=== PATIENT | female | born 1950 | race Two or more races ===

== ENCOUNTER 2025-02-06 09:18 | Inpatient (IN) | payer MEDICARE, MEDICAID, SELFPAY ==
[2025-02-06] VITALS (93 sets, daily range): BP systolic 63–179; BP diastolic 34–127; PULSE 42–114; RESP 0–98; TEMP 35.9–38.7; O2SAT 72–99; BMI 19.5
--- NOTE | 2025-02-06 09:28 | PD.EDAMS ---
Altered Mental Status RME/HPI General Chief Complaint: Altered Mental Status Stated Complaint: ALTERED Time Seen by Provider: 02/06/25 09:29 Arrival date/time: 02/06/25 09:18 Limitations: altered mental status RME / HPI RME / HPI narrative: DR. CASH MAIN ED EVALUATION: 74-year-old female with past medical history includes diabetes, hypertension, and dementia was brought in by EMS for altered mental status. She normally has a GCS of 15 despite dementia but today is at a GCS of 14. She is opening her eyes but not answering questions. She was noted to have a fever of 101. EMS reports no cough. On arrival she is hypotensive at 82 over 68 and oxygen saturation is 96 percent on room air. No other complaints available. Related Data Home Medications ?Medication ?Instructions ?Recorded ?Confirmed atorvastatin 80 mg tablet 80 mg PO QDAY 12/24/22 12/24/22 cholecalciferol (vitamin D3) 125 125 mcg PO QDAY 12/24/22 12/24/22 mcg (5,000 unit) capsule estradiol 0.01% (0.1 mg/gram) 1 appful vaginal QDAY 12/24/22 12/24/22 vaginal cream (Estrace) lisinopril 20 mg tablet 20 mg PO QDAY 12/24/22 12/24/22 metformin 500 mg tablet 500 mg PO QDAY 12/24/22 12/24/22 Allergies Allergy/AdvReac Type Severity Reaction Status Date / Time No Known Allergies Allergy Verified 02/06/25 09:26 Review of Systems Review of Systems ROS Unobtainable: unobtainable due to mental status Past Medical History Social History SMOKING STATUS: Never smoker ED Exam General Limitations: Present altered mental status General appearance: Present in no apparent distress and other (opening eyes, not answering questions, appears ill) Head Head exam: Present atraumatic, normocephalic and normal inspection Eye Eye exam: Present normal appearance, PERRL and EOMI ENT ENT exam: Present normal exam, normal oropharynx and mucous membranes moist Neck Neck exam: Present normal inspection, full ROM and trachea midline Chest Chest inspection: Present normal inspection and symmetric chest wall rise Respiratory Respiratory exam: Present normal lung sounds bilaterally Cardiovascular Cardiovascular exam: Present regular rate, normal rhythm and normal heart sounds Abdominal Exam Abdominal exam: Present soft and normal bowel sounds Extremities Exam Extremities exam: Present normal inspection Back Exam Back exam: Present normal inspection Neurological Exam Neurological exam: Present other (altered not answering questions) Skin Skin exam: Present warm and other (presacral wound noted with dressing) Course Quality Measures Current suspected stage: sepsis Possible source: unknown Blood cultures ordered: yes Antibiotic ordered: Yes Pertinent labs: 02/06/25 02/06/25 09:40 13:04 Lactic Acid 2.1 H mMol/L 1.1 mMol/L (0.4-2.0) (0.4-2.0) Procalcitonin 0.12 ng/ml (0.0-0.49) 0930: Sepsis alert initiated. Orders made at this time are congruent with ED Adult Sepsis Order List. Re-evaluation is to be completed. 0942: Fluids started. 1012: Sepsis reassessment performed consisting of lab review, vitals, physical exam including auscultation of heart, lungs, and visual evaluation of capillary refills, mucosal membranes and extremities. 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 Care 02/06/25 09:29 Active Continuous Pulse Oximetry STAT Care 02/06/25 09:29 Completed EKG (ED ONLY) *Do not use* NOW Care 02/06/25 09:29 Completed EKG (ED ONLY) *Do not use* NOW Care 02/06/25 16:06 Completed Emergency Titration Protocol Stat Care 02/06/25 15:58 Ordered In and Out Catheter [id number] Care 02/06/25 09:29 Completed Insert IV NOW Care 02/06/25 09:29 Active NPO STAT Care 02/06/25 09:29 Active Strict Intake and Output Routine Care 02/06/25 09:29 Ordered Urinary Catheter QS Care 02/06/25 09:[address] chest abdomen pelvis w con SEPSIS PROTOCOL Stat Exams 02/06/25 09:[address] head/brain wo con Stat Exams 02/06/25 09:33 Completed EKG (ED Only) Stat Exams 02/06/25 09:29 Draft EKG (ED Only) Stat Exams 02/06/25 16:06 Draft XR chest 1V portable Stat Exams 02/06/25 09:29 Completed B-Type Natriuretic Peptide Stat Lab 02/06/25 09:40 Completed Blood Culture (Lab) Stat Lab 02/06/25 09:40 Received Comprehensive Metabolic Panel Stat Lab 02/06/25 09:40 Completed DIC Panel Stat Lab 02/06/25 09:40 Completed LDH (Lactate Dehydrogenase) Stat Lab 02/06/25 09:40 Completed Lactate (Lactic Acid) Stat Lab 02/06/25 09:40 Completed Lactic Acid, 3 HR Stat Lab 02/06/25 13:04 Completed Lipase Stat Lab 02/06/25 09:40 Completed Magnesium Q4H Lab 02/06/25 13:28 Completed Magnesium Q4H Lab 02/06/25 21:45 Stop Req Magnesium Stat Lab 02/06/25 09:40 Completed Phosphorous Q4H Lab 02/06/25 13:28 Completed Phosphorous Q4H Lab 02/06/25 21:45 Stop Req Phosphorous Stat Lab 02/06/25 09:40 Completed Procalcitonin Stat Lab 02/06/25 09:40 Completed Prothrombin Time with INR Q6H Lab 02/06/25 21:45 Stop Req Troponin I Stat Lab 02/06/25 09:40 Completed Urinalysis, C/S if Indicated Stat Lab 02/06/25 09:40 Completed Wound Culture and Gram Stain Stat Lab 02/06/25 10:00 Received Acetaminophen Supp [Tylenol Supp] Med 02/06/25 09:29 Active 650 mg SD Q8HR PRN Norepinephrine/D5W 8mg/250ml [Levophed in D5W 8mg/250ml Med 02/06/25 15:46 Discontinued ] 8 mg in 250 ml IV .STK-MED Norepinephrine/D5W 8mg/250ml [Levophed in D5W 8mg/250ml Med 02/06/25 15:45 Active ] 8 mg in 250 ml IV 0.05 mcg/kg/min Norepinephrine/NS 16mg/250ml [Levophed in NS 16mg/250ml Med 02/06/25 15:38 Discontinued ] 16 mg in 250 ml IV .STK-MED Norepinephrine/NS 16mg/250ml [Levophed in NS 16mg/250ml Med 02/06/25 15:37 Discontinued ] 16 mg in 250 ml IV 0.05 mcg/kg/min Norepinephrine/NS 16mg/250ml [Levophed in NS 16mg/250ml Med 02/06/25 15:41 Discontinued ] 16 mg in 250 ml IV 0.05 mcg/kg/min Ondansetron Inj [Zofran Inj] Med 02/06/25 09:29 Active 4 mg IVP Q6HR PRN Piper/Tazo 3.375 gm Premix [Zosyn] Med 02/06/25 09:29 Discontinued 3.375 gm in 50 ml IV X1 Sodium Chloride 0.9% 1000 ml [Ns] 1,000 ml Med 02/06/25 16:27 Discontinued IV 999 mls/hr Sodium Chloride 0.9% 1000 ml [Ns] 1,572 ml Med 02/06/25 09:29 Discontinued IV 1,572 mls/hr Sodium Chloride 0.9% 500 ml [Ns] 500 ml Med 02/06/25 15:25 Discontinued IV 999 mls/hr Vancomycin Inj 1,000 mg Med 02/06/25 09:29 Discontinued Sodium Chloride 0.9% 250 ml [Ns] 250 ml IV X1 Vancomycin/Ns 1 gm Ivpb 200 ml Med 02/06/25 09:45 Discontinued IV X1 Oxygen Delivery NOW RT 02/06/25 09:29 Active Vital Signs Vital signs: Vital Signs Temperature 101.6 F H 02/06/25 09:18 Pulse Rate 111 H 02/06/25 09:18 Respiratory Rate 19 02/06/25 09:18 Blood Pressure 84/62 L 02/06/25 09:18 Pulse Oximetry (%) 97 02/06/25 09:18 Oxygen Delivery Method Room Air 02/06/25 09:18 PROCEDURES: Procedure Comment Arterial Line Placement ? Left Radial Indication: Need for continuous blood pressure monitoring and frequent arterial blood sampling. Technique: Left radial artery palpated and prepped in sterile fashion. Local anesthesia with lidocaine. Using sterile technique, a catheter was inserted into the left radial artery with good arterial blood return. Catheter advanced easily, connected to transducer with appropriate waveform. Secured with sutures and sterile dressing. Post procedure: Distal perfusion intact, no complications, patient tolerated well. Central Line Placement ? Right Internal Jugular (IJ) Indication: Need for central venous access. Technique: Right neck prepped and draped in sterile fashion. Ultrasound used to identify right internal jugular vein. Local anesthesia with lidocaine. Needle inserted under ultrasound guidance with venous blood return obtained. Guidewire advanced without resistance. Dilator used, then triple lumen catheter inserted into IJ. All lumens flushed and aspirated easily. Line sutured in place and sterile dressing applied. Post procedure: Good blood return from all ports, no immediate complications. Patient tolerated well. Altered Mental Status MDM Narrative MDM Narrative:: I, Alycia Richter am scribing for and in the presence of Dr. Cash. 74-year-old female with altered mental status, fever, hypotension, and history of dementia. Exam notable for presacral wound. Differential diagnoses include sepsis, dehydration, and septic shock. Impression is sepsis most likely from UTI source. Assessment for sepsis, mostly likely UTI, dehydration, and maybe sepsis shock. Plan for septic work up, to culture the wound, give vancomycin and Zosyn, provide IV fluids, and admit. Patient requires continued critical monitoring. EKG#1: EKG at 0939 hours. Interpreted by me: sinus rhythm, rate 97, no axis deviation, no ischemia, normal intervals EKG#2: EKG at 1539 hours. Interpreted by me: sinus bradycardia, rate 59, no axis deviation, no ischemia, normal intervals 1740: Arterial line and central line placed. Please see procedures for details. Patient data External records reviewed:: [facility] previous records and EMS form Clinical information provided by:: patient and EMS Social determinants that could affect healthcare access:: none Patient has the following chronic illnesses:: diabetes, hypertension, and dementia How is presenting disease/condition affected by chronic disease/condition?: exacerbated by Evaluation data The following diagnostics were reviewed and interpreted by me:: lab results, radiology exam(s) and EKG tracing(s) (EKG#1: EKG at 0939 hours. Interpreted by me: sinus rhythm, rate 97, no axis deviation, no ischemia, normal intervals ) Lab and/or radiology exams considered but not ordered:: none Interpretation Summary: See MDM narrative above. RADIOLOGY Procedure(s): CT head/brain wo con Accession Number(s): [id number] cc: Val Garcia MD; Miryam Crisostomo; Juan Mckeon MD~ Examination: CT brain head without contrast. 2-D sagittal coronal reconstructions Date and time of exam: February 06, 2025, 1221 hours INDICATIONS: Altered mental status today CTDI: vol (mGy): 46.4 DLP: (mGycm): 874 Technique: Multiple CT axial sections of the brain have been obtained, 5 mm slice thickness. Contrast has not been administered. 2-D sagittal, coronal reconstructions have been obtained Low dose protocols were performed. One or more of the following dose reduction techniques were used; automated exposure control, adjustment of the mA and/or KV according to patient size, use of iterative reconstruction technique. Findings: No significant ventricular enlargement. Intra-axial or extra-axial hemorrhage density is not seen. No mass effect or midline shift Basal cisterns are not remarkable. Fourth ventricle is midline. Cranial vault intact. Impression: Negative for acute hemorrhage, mass effect or midline shift Dictated By: Juan Mckeon MD Procedure(s): CT chest abd pel w SEPSIS PRO Accession Number(s): [id number] cc: Val Garcia MD; Miryam Crisostomo; Juan Mckeon MD~ Examination: CT chest with intravenous contrast CT abdomen with intravenous contrast CT pelvis with intravenous contrast 2-D coronal and sagittal reconstructions Time of exam: December 07, 2024, 1210 hours INDICATIONS: Sepsis alert, unknown source of infection CTDI: vol (mGy) : 7.65 DLP: (mGycm): 499 Technique: Multiple axial images of the chest, abdomen and pelvis with intravenous contrast, 3.0 mm slice thickness. Images obtained post intravenous injection Isovue 370 60 cc. 2-D sagittal and coronal reconstructions. Low dose protocols were performed. One or more of the following dose reduction techniques were used; automated exposure control, adjustment of the mA and/or KV according to patient size, use of iterative reconstruction technique. Findings: No thoracic aortic aneurysm dilatation No pulmonary artery emboli. No paratracheal tracheobronchial or bronchopulmonary adenopathy. No pneumonia, pulmonary edema or pleural disease No visualized liver or splenic lesion Gallbladder is not visualized No common bile duct stone No pancreatic or adrenal mass. Moderate left renal scarring, no hydronephrosis renal or ureteral calculi Aortic calcification no aneurysmal dilatation No pericecal inflammatory change No bowel obstruction or diverticulitis No pelvic mass Abundant stool in the rectum Minimal thickening of the urinary bladder wall Moderate osteopenia IMPRESSION: No pneumonia pulmonary edema or pleural disease. No biliary tract dilatation, no common hepatic common bile duct stones Moderate left renal scarring, no hydronephrosis renal or ureteral calculi No abdominal or pelvic abscess Abundant stool in the rectum Mild cystitis pattern Dictated By: Juan Mckeon MD Procedure(s): XR chest 1V portable Accession Number(s): [id number] cc: Val Garcia MD; Miryam Crisostomo; Juan Mckeon MD~ EXAMINATION: AP chest single view TECHNIQUE: AP portable upright chest single view Date and time: February 06, 2025, 1004 hours INDICATIONS: Sepsis alert today FINDINGS: Normal heart size Prominent thoracic scoliosis Bilateral rib deformities No pneumonia or pulmonary edema IMPRESSION: No pneumonia or pulmonary edema Dictated By: Juan Mckeon MD Medications / Prescriptions Medications or Prescriptions considered but not ordered:: none Medication administrations:: Medication Administration History Acetaminophen (Acetaminophen Supp 650 Mg Supp) 650 mg SD Q8HR PRN PRN Reason: Fever > 100.4 Stop: 03/08/25 09:28 Last Admin: 02/06/25 09:50 Dose: 650 mg Documented By: VL Heparin Sodium (Porcine) (Heparin Sod Inj 5000 Unit/Ml Vial) 5,000 unit SC Q8HR PANTERA Stop: 02/20/25 16:44 Hydrocortisone Sodium Succinate (Hydrocortisone Sod Succ Inj 100 Mg 2 Ml Vial) 50 mg IV Q6HR PANTERA Stop: 03/09/25 00:00 Norepinephrine/Dextrose (Levophed In D5w 8mg/250ml) 8 mg in 250 mls @ 4.678 mls/hr IV .Q24H PRN; Protocol PRN Reason: PER PROTOCOL Stop: 03/08/25 15:44 Last Titration: 02/06/25 17:12 Dose: 0.5 mcg/kg/min, 46.777 mls/hr Documented By: Titration: 02/06/25 16:51 Dose: 0.4 mcg/kg/min, 37.421 mls/hr Documented By: Titration: 02/06/25 16:30 Dose: 0.3 mcg/kg/min, 28.066 mls/hr Documented By: Titration: 02/06/25 16:25 Dose: 0.3 mcg/kg/min, 28.066 mls/hr Documented By: Titration: 02/06/25 16:20 Dose: 0.19 mcg/kg/min, 17.775 mls/hr Documented By: Titration: 02/06/25 16:15 Dose: 0.17 mcg/kg/min, 15.904 mls/hr Documented By: Titration: 02/06/25 16:10 Dose: 0.15 mcg/kg/min, 14.033 mls/hr Documented By: Titration: 02/06/25 16:05 Dose: 0.11 mcg/kg/min, 10.291 mls/hr Documented By: Titration: 02/06/25 16:00 Dose: 0.09 mcg/kg/min, 8.42 mls/hr Documented By: Titration: 02/06/25 15:55 Dose: 3 mcg/kg/min, 280.659 mls/hr Documented By: Titration: 02/06/25 15:55 Dose: 0.07 mcg/kg/min, 6.549 mls/hr Documented By: Admin: 02/06/25 15:50 Dose: 0.05 mcg/kg/min, 4.678 mls/hr Documented By: LINDA Piperacillin/Tazobactam/Dextrose (Zosyn) 3.375 gm in 50 mls @ 12.5 mls/hr IV Q8HR PANTERA; Protocol Stop: 02/13/25 21:59 Vasopressin/Sodium Chloride (Vasostrict/Ns Ivpb) 20 unit in 100 mls @ 9 mls/hr IV .Q11H7M PRN; Protocol PRN Reason: PER PROTOCOL Stop: 03/08/25 16:44 Last Admin: 02/06/25 17:50 Dose: 0.03 unit/min, 9 mls/hr Documented By: LINDA Ondansetron HCl (Ondansetron Inj 2 Mg/Ml Inj 2 Ml) 4 mg IVP Q6HR PRN PRN Reason: NAUSEA OR VOMITING Stop: 03/08/25 09:28 Last Admin: 02/06/25 09:50 Dose: 4 mg Documented By: LINDA Pharmacy Consult (Vancomycin Pharmacy To Dose 1 Each Each) 1 each IV QDAY PRN PRN Reason: CONSULT Stop: 03/09/25 08:59 Discontinued Medications Hydrocortisone Sodium Succinate (Hydrocortisone Sod Succ Inj 100 Mg 2 Ml Vial) 100 mg IV X1 ONE Stop: 02/06/25 16:42 Last Admin: 02/06/25 16:59 Dose: 100 mg Documented By: LINDA Sodium Chloride (Ns) 1,572 mls @ 1,572 mls/hr 30 ml/kg infuse over 60 min (1572 ml) IV .Q1H ONE Stop: 02/06/25 10:28 Last Infusion: 02/06/25 10:42 Dose: Infused Documented By: Admin: 02/06/25 09:42 Dose: 1,572 mls/hr Documented By: LINDA Piperacillin/Tazobactam/Dextrose (Zosyn) 3.375 gm in 50 mls @ 100 mls/hr IV X1 ONE Stop: 02/06/25 09:58 Last Infusion: 02/06/25 10:21 Dose: Infused Documented By: Admin: 02/06/25 09:51 Dose: 100 mls/hr Documented By: LINDA Vancomycin HCl 1,000 mg/ (Sodium Chloride) 250 mls @ 250 mls/hr IV X1 ONE Stop: 02/06/25 10:28 Last Admin: 02/06/25 10:02 Dose: Not Given Documented By: VL Non-Admin Reason: Cancelled by Provider Vancomycin/Sodium Chloride (Vancomycin/Ns 1 Gm Ivpb) 200 mls @ 120 mls/hr IV X1 ONE Stop: 02/06/25 11:24 Last Infusion: 02/06/25 12:09 Dose: Infused Documented By: Admin: 02/06/25 10:28 Dose: 120 mls/hr Documented By: BY Sodium Chloride (Ns) 500 mls @ 999 mls/hr IV .Q31M ONE Stop: 02/06/25 15:55 Last Infusion: 02/06/25 16:17 Dose: Infused Documented By: Admin: 02/06/25 15:46 Dose: 999 mls/hr Documented By: VL Norepinephrine Bitartrate (Levophed In Ns 16mg/250ml) 16 mg in 250 mls @ 2.339 mls/hr IV .Q24H PRN; Protocol PRN Reason: PER protocol Stop: 03/08/25 15:36 Norepinephrine Bitartrate (Levophed In Ns 16mg/250ml) Confirm Administered Dose 16 mg in 250 mls @ ud IV .STK-MED ONE Stop: 02/06/25 15:39 Last Admin: 02/06/25 15:51 Dose: Not Given Documented By: VL Non-Admin Reason: Duplicate Medication on eMAR Norepinephrine Bitartrate (Levophed In Ns 16mg/250ml) 16 mg in 250 mls @ 2.339 mls/hr IV .Q24H PRN; Protocol PRN Reason: PER protocol Stop: 03/08/25 15:40 Norepinephrine/Dextrose (Levophed In D5w 8mg/250ml) Confirm Administered Dose 8 mg in 250 mls @ ud IV .STK-MED ONE Stop: 02/06/25 15:47 Last Admin: 02/06/25 15:51 Dose: Not Given Documented By: VL Non-Admin Reason: Duplicate Medication on eMAR Sodium Chloride (Ns) 1,000 mls @ 999 mls/hr IV .Q1H1M ONE Stop: 02/06/25 17:27 Last Infusion: 02/06/25 17:32 Dose: Infused Documented By: Admin: 02/06/25 16:31 Dose: 999 mls/hr Documented By: VL see above Consultations Consultation(s) initiated? (list below): Yes Consultation #1 (Physician, Specialty, Details): Discussed test HPI, PMHx, lab, radiology results and/or management with resident working with the hospitalist. Will admit for further evaluation and management. Accepts patient for admission. Time: 16:41 Diagnosis Differential diagnosis altered mental status: other (sepsis, dehydration, and septic shock) Most likely diagnosis given after review of the tests above:: Sepsis Sepsis shock Cellulitis Presacral wound/ infection Dementia Hyponatremia Dehydration Admission Indicated Admission indicated?: indicated Admission Request Was there a request for admission?: Yes Admission Attestation Admission request attestation: Discussed case with [] from Hospitalist service regarding admission. Discussed patients ED course, exam findings, labs, and radiology results. The Hospitalist [agrees,declines] to accept the patient for admission. Disposition Plan Disposition Plan: Admit Critical Care Time Critical Care Time Critical Care Time: Yes Total Critical Care Time (min.): 90 Attestation: The high probability of sudden, clinically significant deterioration in the patient?s condition required the highest level of my preparedness to intervene urgently. The services I provided to this patient were to treat and/or prevent clinically significant deterioration. Services included the following: chart data review, reviewing nursing notes and/or old charts, documentation time, institutional nutrition consultant collaboration regarding findings and treatment options, medication orders and management, direct patient care, vital sign assessments and ordering, interpreting and reviewing diagnostic studies and lab tests. Aggregate critical care time includes only time during which I was engaged in work directly related to the patient?s care, as described above, whether at bedside or elsewhere in the Emergency Department. It did not include time spent performing other reported procedures or the services of residents, students, nurses or physician assistants. Discharge Plan Plan Patient Disposition: Admit Acute Care w/in Hospital Problem List Clinical Impression: Sepsis, Sepsis without septic shock, Cellulitis, Dementia, Dehydration Impression comment: presacral wound/ infection
--- NOTE | 2025-02-06 09:29 | EKG_ITS ---
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
--- NOTE | 2025-02-06 09:33 | XR_ITS ---
Examination: CT brain head without contrast. 2-D sagittal coronal reconstructions Date and time of exam: February 06, 2025, 1221 hours INDICATIONS: Altered mental status today CTDI: vol (mGy): 46.4 DLP: (mGycm): 874 Technique: Multiple CT axial sections of the brain have been obtained, 5 mm slice thickness. Contrast has not been administered. 2-D sagittal, coronal reconstructions have been obtained Low dose protocols were performed. One or more of the following dose reduction techniques were used; automated exposure control, adjustment of the mA and/or KV according to patient size, use of iterative reconstruction technique. Findings: No significant ventricular enlargement. Intra-axial or extra-axial hemorrhage density is not seen. No mass effect or midline shift Basal cisterns are not remarkable. Fourth ventricle is midline. Cranial vault intact. Impression: Negative for acute hemorrhage, mass effect or midline shift
[2025-02-06] MEDS: SODIUM CHLORIDE 0.9% 1000 ML 1,572 ML 1572 ML IV (09:42)
[2025-02-06] MEDS: ACETAMINOPHEN SUPP 650 MG SUPP PR (09:50)
[2025-02-06] MEDS: ONDANSETRON INJ 2 MG/ML INJ 2 ML 4 MG IVP (09:50)
[2025-02-06] MEDS: PIPER/TAZO 3.375 GM PREMIX 3.375 GM/50 ML BAG IV ×2 (09:51→21:25)
[2025-02-06 09:56] LABS: Lactate (Lactic Acid) 2.1 mMol/L (0.4-2.0)
[2025-02-06 10:01] LABS: Collection Type, Urine Clean Catch
[2025-02-06 10:19] LABS: Bilirubin,Urine Negative (Negative); Blood,Urine 1+ (Negative); Color,Urine Yellow (Lt Yel-Yel); Culture Indicated,Urine Not Indicated; Glucose, Urine Negative (Negative); Ketones,Urine Trace (Negative); Leukocyte Esterase,Urine Negative (Negative); Nitrite,Urine Negative (Negative); PH,Urine 5.5 (5.0-7.0); Protein,Urine 1+ (Neg - Trace); RBC,Urine 1 /hpf (0-3); Specific Gravity,Urine 1.031 (1.001-1.035); Squamous Epithelial Cell,Urine 1 /hpf (0-5); Urobilinogen,Urine 2.0 mg/dL (0.0-1.0); WBC,Urine < 1 /hpf (0-5)
[2025-02-06 10:22] LABS: Clarity,Urine Clear (Clear/Hazy)
[2025-02-06] MEDS: VANCOMYCIN/NS 1 GM IVPB 200 ML IV (10:28)
[2025-02-06 10:32] LABS: Alanine Aminotransferase 17 U/L (10-49); Albumin, Serum 4.0 gm/dL (3.4-4.8); Albumin/Globulin Ratio 1.3 (1.2-2.2); Alkaline Phosphatase 78 U/L (46-116); Anion Gap 11 (7-16); Aspartate Amino Transferase 15 U/L (0-34); BUN/Creatinine Ratio 23 Ratio (12-20); Bilirubin,Total 0.5 mg/dL (0.3-1.2); Blood Urea Nitrogen 23 mg/dL (9-23); Calcium 9.7 mg/dL (8.3-10.6); Calcium (Corrected) 9.7 mg/dL (8.5-10.1); Carbon Dioxide 24.6 mMol/L (20.0-31.0); Chloride 117 mMol/L (98-107); Creatinine (Component) 1.0 mg/dL (0.6-1.3); Estimated Creatinine Clearance 39.5 mL/min (>60); Globulin 3.0 gm/dL (2.3-3.5); Glucose 131 mg/dL (74-106); LDH (Lactate Dehydrogenase) 191 U/L (120-246); Lipase 34 U/L (12-53); Magnesium 1.9 mg/dL (1.6-2.6); Osmolality,Calculated 309 (275-295); Phosphorous 2.6 mg/dL (2.4-5.1); Potassium 3.5 mMol/L (3.4-5.1); Procalcitonin 0.12 ng/ml (0.0-0.49); Sodium 153 mMol/L (136-145); Total Protein 7.0 gm/dL (5.7-8.2); Troponin I 0.022 ng/mL (0.0-0.045); eGFR 59 See Note
[2025-02-06 10:33] LABS: Basophils # (Auto) 0.1 Thou/mm3 (0.0-0.2); Basophils % (Auto) 1 % (0-2.5); Eosinophils # (Auto) 0.0 Thou/mm3 (0.0-0.5); Eosinophils % (Auto) 0 % (0-10); Hematocrit 42.5 % (36.0-46.0); Hemoglobin 12.9 g/dL (12.0-16.0); Immature Granulocytes Auto 0.06 Thou/mm3 (0.00-0.00); Lymphocytes # (Auto) 2.3 Thou/mm3 (1.0-4.8); Lymphocytes % (Auto) 18 % (10-50); Mean Corpuscular HGB Conc 30.4 g/dl (31.0-37.0); Mean Corpuscular Hemoglobin 25.6 pg (25.0-35.0); Mean Corpuscular Volume 84 fL (80-100); Monocytes # (Auto) 0.8 Thou/mm3 (0.0-0.8); Monocytes % (Auto) 6 % (0-12); Neutrophils # (Auto) 9.7 Thou/mm3 (1.8-7.7); Neutrophils % (Auto) 75 % (37-80); Nucleated Red Blood Cell # 0.00 Thou/mm3 (0.00-0.00); Nucleated Red Blood Cell % 0 /100 WBC (0); Platelet Count 393 Thou/mm3 (140-440); RDW Standard Deviation 47.2 fL (36.4-46.3); Red Blood Count 5.04 Miln/mm3 (4.00-5.20); White Blood Count 12.9 Thou/mm3 (3.6-11.0)
[2025-02-06 10:34] LABS: INR 1.1 (0.9-1.3); Partial Thromboplastin Time 24.4 Seconds (22.0-36.0); Prothrombin Time 11.5 Seconds (9.0-12.2)
[2025-02-06 10:35] LABS: D-Dimer 2430 ng/mL (<600)
[2025-02-06 10:36] LABS: B-Type Natriuretic Peptide 77 pg/mL (0-100)
[2025-02-06 11:00] LABS: Fibrinogen 560 mg/dL (175-375)
[2025-02-06 12:50] LABS: Reflex Lactate? Y
[2025-02-06 13:08] LABS: Lactic Acid, 3 HR 1.1 mMol/L (0.4-2.0)
[2025-02-06 13:46] LABS: Magnesium 1.8 mg/dL (1.6-2.6); Phosphorous 2.7 mg/dL (2.4-5.1)
[2025-02-06] MEDS: SODIUM CHLORIDE 0.9% 500 ML 500 ML 999 ML IV (15:46)
[2025-02-06] MEDS: Norepinephrine/D5W 8mg/250ml 8 MG/250 ML BAG 4.678 MG IV (15:50)
--- NOTE | 2025-02-06 16:06 | EKG_ITS ---
[facility] Test Date: 2025-02-06 Pat Name: CHON QUINONEZ Department: Room: - Gender: Female Manager Of Transportation: : 1950 Requested By: Val Garcia Order Number: [id number] Reading MD: Val Garcia Measurements Intervals [place] Rate: 59 P: 44 MI: 164 QRS: 42 QRSD: 90 T: 49 QT: 421 QTc: 419 Interpretive Statements SINUS BRADYCARDIA LOW QRS VOLTAGE IN PRECORDIAL LEADS [QRS DEFLECTION < 1.0 mV IN CHEST LEADS] NONSPECIFIC T-WAVE ABNORMALITY Compared to ECG 02/06/2025 09:39:52 Low QRS voltage now present Sinus rhythm no longer present Possible ischemia no longer present T-wave abnormality still present /store/S0/[id number].pdf
[2025-02-06] MEDS: SODIUM CHLORIDE 0.9% 1000 ML 1,000 ML 999 ML IV (16:31)
--- NOTE | 2025-02-06 16:37 | PC.NURSE ---
PATIENT BLOOD PRESSURE WAS 80S/50S. DR. MEJIAS MADE AWARE OF LOW BP AND LOW HEART RATE. PATIENT WAS GIVEN 500ML OF NORMAL SALINE. PATIENT WAS STARTED ON LEVOPHED DRIP. PER MD PATIENT OKAY TO HAVE EMERGENCY TITRATION OF LEVOPHED TO 3MCG/KG/MIN. PATIENT'S HEART RATE WENT UP TO 130S. PATIENT BLOOD PRESSURE WAS 170S/110S AT THAT TIME WELL. PATIENT TITRATED BACK DOWN ON LEVOPHED DRIP.. PATIENT HEART RATE STILL LOW AT 48-50S. PATIENT LETHARGIC. CONSENT OBTAINED FROM DAUGHTER FOR ART LINE PLACEMENT, AND CENTRAL LINE PLACEMENT. DAUGHTER MADE AWARE OF PLAN OF CARE FOR PATIENT. PATIENT WILL BE ADMITTED TO ICU. PATIENT BLOOD PRESSURE CURRENTLY 89/41. RESIDENT ALEXX AND TEAM IN TO ASSESS PATIENT AND PLACE CENTRAL LINE. FAMILY IN AGREEMENT WITH PLAN
[2025-02-06] MEDS: HYDROCORTISONE SOD SUCC INJ 100 MG 2 ML VIAL IV (16:59)
--- NOTE | 2025-02-06 17:10 | XR_ITS ---
EXAMINATION: AP chest single view TECHNIQUE: Portable supine AP chest single view Date and time: February 06, 2025, 1737 hours, comparison February 06, 2025 1004 hours INDICATIONS: Post central line placement. FINDINGS: Right internal jugular central line tip right atrium No pneumothorax Normal heart size No pneumonia or pulmonary edema IMPRESSION: Right internal jugular central line tip right atrium, no pneumothorax
[2025-02-06] MEDS: VASOPRESSIN IN NS IVPB 20 UNIT/100 ML BAG 9 UNIT IV (17:50)
--- NOTE | 2025-02-06 17:58 | PD.RESHP ---
Documentation for date of: 02/06/25 HPI History of Present Illness Chief complaint: decrease activity and low PO intake History of present illness: 74-year-old female with past medical history of hypertension, DM2, hyperlipidemia, and Alzheimer's (nonverbal at baseline) came into the ED brought in by her daughter due to lower activity than normal and decreased p.o. intake for the past 2-3 days. Patient speaks Pashto and daughter also speaks Pashto therefore the access spec GENA #ID [id number] was used to take most of the history. Given the patient is nonverbal at baseline most of the history was syncopal and the daughter. Stated that patient at baseline is mostly bedbound and in order to get her of the need 2-3 people to actually help her stand up and move around. Otherwise she mentioned that patient has not had any nausea, vomiting, diarrhea, or cough as of recently and that she did have the ulcer in her sacral area for around 2 or 3 days and has rapidly progressed and gotten worse. Otherwise no other complaints at this time. ED course: Initially came in hypotensive, tachycardic, and febrile. Initial labs were relevant for leukocytosis 12.9, hyponatremia 153, hypochloremia 117, and lactic acidosis at 2.1 which downtrended to 1.1 and patient's UA was unremarkable. Initial imaging clued chest x-ray which did not show any pneumonia or pulmonary edema, chest/abdomen/pelvis CT which only showed abundant stool in the rectum and mild cystitis, and head CT which was unremarkable. Patient did get initial EKG which showed sinus rhythm with some diffuse ST depressions likely secondary to demand ischemia in the setting of shock. Repeat EKG also showed sinus bradycardia with heart rate of 59 with QTc of 419. In the ER patient was started on Levophed and was requiring high dose vasopressors and was already on Levophed 0.5 during assessment. She also was more bradycardic and had a short episode of tachycardia secondary to being maxed out on Levophed in the ER. Otherwise has been bradycardic in the low 50s high 40s. Patient in the ER got an A-line and central line placed. PMH: Hypertension, DM2, hyperlipidemia, Alzheimer's Social Hx: Daughter states no smoking, drugs, alcohol Allergies: NKDA Patient admitted to the ICU due to shock. Review of Systems Review of Systems ROS Unobtainable: unobtainable due to medical condition Past Medical History Past Medical History Comments PMH COMMENT: PMH: Hypertension, DM2, hyperlipidemia, Alzheimer's Social Hx: Daughter states no smoking, drugs, alcohol Allergies: NKDA Exam Vital Signs Temp Pulse Resp BP Pulse Ox O2 Del Method 96.6 F L 58 L 18 117/52 L 90 L Room Air 02/06/25 17:20 02/06/25 17:23 02/06/25 17:23 02/06/25 17:20 02/06/25 17:20 02/06/25 16:29 Narrative Exam Gen: Patient nonverbal at baseline, GCS of 10, moving all extremities, pale appearing and frail elderly female HEENT: NCAT, EOMI, Pupils reactive ERICK, but pinpoint, not icteric. External ears normal. No rhinorrhea. Dry mucous membranes. Neck: Supple, full range of motion, no observable masses, No meningeal sign. Lungs: No Respiratory distress, clear bilateral. CV: Bradycardic, no murmurs. Abdomen: Soft, nondistended, No rebound tenderness. MSK: No joint swelling, no redness, peripheral pulses presents, no peripheral edema edema. Skin: Coccygeal region ulcer stage II-III with some purulent discharge Neuro: Unable to assess given patient's medical condition and being nonverbal and not following commands at this time. Able to move all extremities and withdrawing to pain, GCS 10, pupils were reactive bilaterally. Results: Labs 02/06/25 09:40 02/06/25 17:49 Labs: Short CBC 02/06/25 02/06/25 02/06/25 Range/Units 09:40 09:40 09:40 WBC Cancelled 12.9 H Hgb Cancelled 12.9 Hct Cancelled Plt Count 02/06/25 02/06/25 Range/Units 09:40 09:40 WBC Hgb Hct 42.5 Plt Count Cancelled 393 BMP 02/06/25 09:40 Sodium 153 H Potassium 3.5 Chloride 117 H Carbon Dioxide 24.6 BUN 23 Creatinine 1.0 Glucose 131 H Calcium 9.7 Cardiac Enzymes 02/06/25 Range/Units 09:40 Troponin I 0.022 (0.0-0.045) ng/mL Liver Function 02/06/25 Range/Units 09:40 Total Bilirubin 0.5 (0.3-1.2) mg/dL AST 15 (0-34) U/L ALT 17 (10-49) U/L Alkaline Phosphatase 78 (46-116) U/L Albumin 4.0 (3.4-4.8) gm/dL Urine 02/06/25 Range/Units 09:40 Urine Color Yellow (Lt Yel-Yel) Urine Clarity Clear (Clear/Hazy) Urine pH 5.5 (5.0-7.0) Ur Specific [place] 1.031 (1.001-1.035) Urine Protein 1+ A (Neg - Trace) Urine Glucose (UA) Negative (Negative) Quality Measures Quality Measures sepsis Current suspected stage: septic shock (LA >4 and/or hypotension) Sepsis reassessment completed at (date): 02/06/25 Sepsis reassessment completed at (time): 18:45 Possible source: unknown Blood cultures ordered: yes Antibiotic ordered: Yes Advance care planning discussed with:: patient Medications Home Medications and Allergies Home Medications ?Medication ?Instructions ?Recorded ?Confirmed ?Type atorvastatin 80 mg tablet 80 mg PO QDAY 12/24/22 12/24/22 History cholecalciferol (vitamin D3) 125 125 mcg PO QDAY 12/24/22 12/24/22 History mcg (5,000 unit) capsule estradiol 0.01% (0.1 mg/gram) 1 appful vaginal QDAY 12/24/22 12/24/22 History vaginal cream (Estrace) lisinopril 20 mg tablet 20 mg PO QDAY 12/24/22 12/24/22 History metformin 500 mg tablet 500 mg PO QDAY 12/24/22 12/24/22 History Allergies Allergy/AdvReac Type Severity Reaction Status Date / Time No Known Allergies Allergy Verified 02/06/25 09:26 Visit Medications Acetaminophen (Acetaminophen Supp 650 Mg Supp) 650 mg VA Q8HR PRN PRN Reason: Fever > 100.4 Stop: 03/08/25 09:28 Last Admin: 02/06/25 09:50 Dose: 650 mg Heparin Sodium (Porcine) (Heparin Sod Inj 5000 Unit/Ml Vial) 5,000 unit SC Q8HR PANTERA Stop: 02/20/25 16:44 Hydrocortisone Sodium Succinate (Hydrocortisone Sod Succ Inj 100 Mg 2 Ml Vial) 50 mg IV Q6HR PANTERA Stop: 03/09/25 00:00 Norepinephrine/Dextrose (Levophed In D5w 8mg/250ml) 8 mg in 250 mls @ 4.678 mls/hr IV .Q24H PRN; Protocol PRN Reason: PER PROTOCOL Stop: 03/08/25 15:44 Last Titration: 02/06/25 17:12 Dose: 0.5 mcg/kg/min, 46.777 mls/hr Piperacillin/Tazobactam/Dextrose (Zosyn) 3.375 gm in 50 mls @ 12.5 mls/hr IV Q8HR PANTERA; Protocol Stop: 02/13/25 21:59 Vasopressin/Sodium Chloride (Vasostrict/Ns Ivpb) 20 unit in 100 mls @ 9 mls/hr IV .Q11H7M PRN; Protocol PRN Reason: PER PROTOCOL Stop: 03/08/25 16:44 Last Admin: 02/06/25 17:50 Dose: 0.03 unit/min, 9 mls/hr Ondansetron HCl (Ondansetron Inj 2 Mg/Ml Inj 2 Ml) 4 mg IVP Q6HR PRN PRN Reason: NAUSEA OR VOMITING Stop: 03/08/25 09:28 Last Admin: 02/06/25 09:50 Dose: 4 mg Pharmacy Consult (Vancomycin Pharmacy To Dose 1 Each Each) 1 each IV QDAY PRN PRN Reason: CONSULT Stop: 03/09/25 08:59 Discontinued Medications Hydrocortisone Sodium Succinate (Hydrocortisone Sod Succ Inj 100 Mg 2 Ml Vial) 100 mg IV X1 ONE Stop: 02/06/25 16:42 Last Admin: 02/06/25 16:59 Dose: 100 mg Sodium Chloride (Ns) 1,572 mls @ 1,572 mls/hr 30 ml/kg infuse over 60 min (1572 ml) IV .Q1H ONE Stop: 02/06/25 10:28 Last Infusion: 02/06/25 10:42 Dose: Infused Piperacillin/Tazobactam/Dextrose (Zosyn) 3.375 gm in 50 mls @ 100 mls/hr IV X1 ONE Stop: 02/06/25 09:58 Last Infusion: 02/06/25 10:21 Dose: Infused Vancomycin HCl 1,000 mg/ (Sodium Chloride) 250 mls @ 250 mls/hr IV X1 ONE Stop: 02/06/25 10:28 Last Admin: 02/06/25 10:02 Dose: Not Given Vancomycin/Sodium Chloride (Vancomycin/Ns 1 Gm Ivpb) 200 mls @ 120 mls/hr IV X1 ONE Stop: 02/06/25 11:24 Last Infusion: 02/06/25 12:09 Dose: Infused Sodium Chloride (Ns) 500 mls @ 999 mls/hr IV .Q31M ONE Stop: 02/06/25 15:55 Last Infusion: 02/06/25 16:17 Dose: Infused Norepinephrine Bitartrate (Levophed In Ns 16mg/250ml) 16 mg in 250 mls @ 2.339 mls/hr IV .Q24H PRN; Protocol PRN Reason: PER protocol Stop: 03/08/25 15:36 Norepinephrine Bitartrate (Levophed In Ns 16mg/250ml) 16 mg in 250 mls @ 2.339 mls/hr IV .Q24H PRN; Protocol PRN Reason: PER protocol Stop: 03/08/25 15:40 Sodium Chloride (Ns) 1,000 mls @ 999 mls/hr IV .Q1H1M ONE Stop: 02/06/25 17:27 Last Infusion: 02/06/25 17:32 Dose: Infused Assessment & Plan Plan 74-year-old female with past medical history of hypertension, DM2, hyperlipidemia, and Alzheimer's (nonverbal at baseline) admitted to the ICU on 02/06/2025 due to shock likely distributive in the setting of decubitus ulcer. 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 CVS #Shock Patient shock likely distributive in the setting of coccygeal ulcer with good initial response to IV fluids, but IVC not adequately visualized on limited bedside ultrasound versus cardiogenic in the setting of bradycardia and given that on VBG SVO 2 was low at 67 and on Mina's criteria patient's cardiac output was 2.8 and cardiac index was 1.9. Last likely obstructive as no RV strain seen appreciated on the limited bedside ultrasound S/p 3 L IV fluids Plan: Currently on Levophed and vasopressin Started dobutamine drip at 2.5 mcg/kg/min (goal SVO 2 is 70 and above) Started patient on hydrocortisone 100 mg x 1 and 50 mg every 6 for refractory shock Zosyn and Vanco Every 2 hours VBG's until reaching goal of SVO 2 of 70 then we can do VBG's every 4 hours Echo ordered Follow-up on blood cultures and wound cultures Follow-up on NICOM once patient in the ICU and reassess IVC. #Bradycardia Patient has been having heart rate in the low 50s high 40s EKG that showed sinus bradycardia with a rate of 59 and QTc was 419, but no block appreciated Initial EKG that showed some diffuse ST depressions likely secondary to demand ischemia Plan: Patient currently has external pacer pads, but not being paced at this time On dobutamine 2.5 mcg/kg/min Echo ordered Consider atropine and pacing patient if severe bradycardia #NSTEMI Likely type II due to demand ischemia in setting of shock Troponins were 0.022 and up trended to 0.196 Initial EKG that showed diffuse ST depressions likely due to demand ischemia. Plan: Trend troponins Treat underlying shock Pulm No active disease GI #Constipation Patient is chest/abdomen CT did show abundant stool in the rectum This could also be contributing to patient's decreased activity levels Plan: Consider NG tube and starting patient on lactulose for bowel movements. Renal #Lactic acidosis, resolved Patient came in with a lactic acid of 2.1 and downtrended to 1.1 Likely secondary to shock Plan: Treat underlying shock #Hypokalemia Patient's potassium was 3.1 on repeat labs Plan: Gave 40 mEq IV potassium Will replete as necessary Endo #Hx of DM2 No A1c on records Plan: A1c in the morning ISS every 6 hours Bedside glucose every 6 Hypoglycemia protocol ordered #Hx of hyperlipidemia Order lipid panel for a.m. labs Heme/onc #Leukocytosis Likely infectious in etiology WBC was 12.9 Plan: Treat underlying infection ID #Coccygeal ulcer Patient has a pressure ulcer in the coccygeal region stage II-III. Does have some purulent discharge Plan: Wound care order Referral to wound care Zosyn and Vanco Turn patient every 2 hours Follow-up on wound cultures ICU Health maintenance: Mechanical ventilation: None Sedation: none Diet: NPO DVT prophylaxis: Heparin subcu GI prophylaxis: none Pelletier: Yes Lines: PIV, right IJ, left radial A-line Antibiotics: Zosyn and vancomycin CODE STATUS: Full Case disclosed with Attending Dr. Shayne Cameron PGY2 Disclaimer: Even though this this note was dictated by speech recognition and even though it was carefully revised there may still be minor errors in medical communication specialist due to voice recognition software.
[2025-02-06 18:12] LABS: Base Excess, Venous -7 (-3-3); O2 Saturation, Venous 67 % (96-97); PCO2, Venous 42 mmHg (36-56); PO2, Venous 42 mmHg (15-58); pH, Venous 7.27 (7.33-7.66)
[2025-02-06 18:19] LABS: Alanine Aminotransferase 16 U/L (10-49); Albumin, Serum 3.3 gm/dL (3.4-4.8); Albumin/Globulin Ratio 1.6 (1.2-2.2); Alkaline Phosphatase 61 U/L (46-116); Anion Gap 13 (7-16); Aspartate Amino Transferase 17 U/L (0-34); BUN/Creatinine Ratio 25 Ratio (12-20); Bilirubin,Total 0.4 mg/dL (0.3-1.2); Blood Urea Nitrogen 20 mg/dL (9-23); Calcium 8.1 mg/dL (8.3-10.6); Calcium (Corrected) 8.7 mg/dL (8.5-10.1); Carbon Dioxide 20.0 mMol/L (20.0-31.0); Chloride 120 mMol/L (98-107); Creatinine (Component) 0.8 mg/dL (0.6-1.3); Estimated Creatinine Clearance 49.3 mL/min (>60); Globulin 2.1 gm/dL (2.3-3.5); Glucose 203 mg/dL (74-106); Osmolality,Calculated 312 (275-295); Potassium 3.1 mMol/L (3.4-5.1); Sodium 153 mMol/L (136-145); Total Protein 5.4 gm/dL (5.7-8.2); eGFR > 60 See Note
[2025-02-06 18:20] LABS: Troponin I 0.196 ng/mL (0.0-0.045)
[2025-02-06] MEDS: POTASSIUM CHL 10 mEq IVPB 10 MEQ/100 ML BAG 100 MEQ IV ×4 (18:32→22:30)
[2025-02-06] MEDS: DOBUTamine/D5w 500 MG IVPB 500 MG/250 ML BAG IV (18:47)
[2025-02-06] MEDS: HEPARIN SOD INJ 5000 UNIT/ML VIAL SC ×2 (18:48→21:25)
[2025-02-06] MEDS: INSULIN LISPRO (AdmeLOG) 1 UNIT/0.01 ML UNIT SC (18:48)
--- NOTE | 2025-02-06 18:52 | ECHO_ITS ---
Patient Info Name: Vidya Leiva Age: 74 years : 1950 Gender: Female Ht: 160 cm Wt: 50 kg BSA: 1.49 m2 BP: 112 / 70 mmHg HR: 66 bpm Exam Date: 02/07/2025 6:26 AM Admit Date: 02/06/2025 Site: [facility] Room Number: [id number] Patient Status: I Technical Quality: Fair Exam Type: CA echo doppler complete [employer] Manager: Vianney Rubi Ordering Physician: Awais Cameron Study Info Indications Bradycardia, NSTEMI - Primary Location: S2SX Left Ventricular Outflow Tract Name Value Normal LVOT 2D LVOT Diameter 1.5 cm LVOT Doppler LVOT Peak Velocity 59 cm/s LVOT Mean Gradient 1 mmHg LVOT VTI 10 cm LVOT VTI/AV VTI Ratio 0.7 LVOT Stroke Volume 17 ml Pulmonic Valve Name Value Normal PV Doppler PV Peak Velocity 52 cm/s Mitral Valve Name Value Normal MV Doppler MV Decel Titus 282 cm/s2 MV PHT 59 ms MV Area (PHT) 3.7 cm2 4.0-5.0 MV Diastolic Function MV E Peak Velocity 58 cm/s MV A Peak Velocity 19 cm/s MV E/A 3.0 MV Annular TDI MV Septal e' Velocity 7.4 cm/s MV E/e' (Septal) 7.8 MV Lateral e' Velocity 7.7 cm/s MV E/e' (Lateral) 7.5 MV e' Average 7.56 cm/s MV E/e' (Average) 7.6 Tricuspid Valve Name Value Normal TV Regurgitation Doppler TR Peak Velocity 153 cm/s Estimated PAP/RSVP RA Pressure 8 mmHg <=5 PA Systolic Pressure 17 mmHg <36 RV Systolic Pressure 17 mmHg <36 TV Annular TDI TV Lateral Michelle s' Velocity 8.9 cm/s >=9.5 Aortic Valve Name Value Normal AV 2D/MM AV Cusp Sep (MM) 0.9 cm AV Doppler AV Peak Velocity 84 cm/s AV Mean Gradient 1 mmHg AV VTI 15 cm AV Area (Cont Eq VTI) 1.2 cm2 >=3.0 AV Area (Cont Eq Guillermo) 1.2 cm2 AV DI (Guillermo) 0.70 AV Regurgitation 2D LVOT Area 1.8 cm2 Ventricles Name Value Normal LV Dimensions 2D/MM IVS Diastolic Thickness (2D) 0.9 cm 0.6-0.9 LVID Diastole (2D) 3.8 cm 3.8-5.2 LVIW Diastolic Thickness (2D) 0.7 cm 0.6-0.9 LVID Systole (2D) 3.1 cm 2.2-3.5 LVOT Diameter 1.5 cm LV Mass (2D Cubed) 85.96 g 67.00-162.00 LV Mass Index (2D Cubed) 58 g/m2 43-95 Relative Wall Thickness (2D) 0.37 <=0.42 IVS/LVIW Diastolic Thickness (2D) 1.29 0.00-1.50 LV Fractional Shortening/Ejection Fraction 2D/MM LV Fractional Shortening (2D) 18 % 27-45 LV EF (2D Teichholz) 39 % RV Dimensions 2D/MM TV Lateral Michelle s' Velocity 8.9 cm/s >=9.5 Atria Name Value Normal LA Dimensions LA Volume (4C A-L) 28 ml LA Volume (BP A-L) 31 ml Left Ventricle Left ventricular chamber dimension is normal. Left ventricular systolic function is mildly reduced with visually estimated ejection fraction of 45-50%. There is normal geometry noted in the left ventricle. Left ventricular segmental wall motion is normal. There is grade I diastolic dysfunction in the left ventricle. Right Ventricle Right ventricular chamber dimension is normal. Right ventricular systolic function is normal. Left Atrium Left atrial chamber dimension is mildly enlarged. Right Atrium Right atrial chamber dimension is normal. Aortic Valve The aortic valve is not well visualized. There is no aortic valve sclerosis. There is no aortic valve stenosis with a peak velocity of 84 cm/s, mean gradient of 1 mmHg, and aortic valve area of 1.2 cm2. There is no aortic valve regurgitation. Pulmonic Valve The pulmonic valve is normal. There is no pulmonic valve stenosis. There is no pulmonic regurgitation. Mitral Valve The mitral valve has a calcified annulus. There is no mitral valve stenosis. There is mild mitral valve regurgitation. Tricuspid Valve The tricuspid valve leaflets are normal. There is no tricuspid valve stenosis. There is trace tricuspid valve regurgitation. No pulmonary hypertension, estimated pulmonary arterial systolic pressure is 17 mmHg and systemic blood pressure of 112 mmHg in systole. Pericardium/Pleural The pericardium appears normal. There is no pericardial effusion. No pleural effusion visualized. Inferior Vena Cava Normal inferior vena cava with >50% collapse upon inspiration consistent with normal right atrial pressure, 8 mmHg. Aorta The aortic measurements are indexed to age and body surface area. The aortic root at the sinus of Valsalva is not well visualized. The prox ascending aorta is not well visualized. Summary 1. Left ventricle size is normal and systolic function is mildly reduced. Estimated ejection fraction is 45-50%. There is grade I diastolic dysfunction. 2. Right ventricle chamber size is normal and systolic function is normal. Estimated RVSP is 17 mmHg. 3. There is no mitral valve stenosis and mild regurgitation. Mild MAC. 4. There is trace tricuspid valve regurgitation. 5. The left atrium is mildly enlarged. The right atrium is normal. Report Signatures Finalized by Ladarius Mcginnis on 02/07/2025 04:51 PM
--- NOTE | 2025-02-06 19:11 | PD.RESPROC ---
PROCEDURES: Procedure Date / Time 02/06/25 17:45 Procedural Time Out Time out performed: yes Arterial Line Indication(s): frequent arterial line sampling and shock Informed consent obtained: obtained from surrogate decision maker Time out done, and the following verified: correct patient, side and site, procedure, patient position and implants and/or equipment Size (Gauge): 14 Technique used: direct puncture technique Post-Procedure: line sutured into place and dry sterile dressing placed Patient tolerated procedure: well and no complications EBL(ml): 3 Complications: none Site: left and radial Procedure comment: A time out was performed. My hands were washed immediately prior to the procedure. I wore a surgical cap, mask, and sterile gloves throughout the procedure.The Left wrist was prepped using chlorhexidine scrub and draped in sterile fashion. The radial pulse was identified and the wrist was positioned in the usual fashion. Using the Arrow Radial Arterial Line Kit, a needle was inserted into the radial artery. Arterial blood was seen to pulsate in the flash chamber. The internal guidewire was advanced easily into the radial artery. The catheter was then advanced over the wire and the needle and wire were withdrawn. The catheter was sutured in place. A sterile opsite was placed over the catheter at the insertion site. The patient tolerated the procedure without any hemodynamic compromise. At the time of procedure completion, the catheter was connected to the diagnostic cardiac sonographer and calibrated. Appropriate waveform and blood pressure tracing was observed. Case discussed and supervised by attending Dr. Alee MD PGY1
[2025-02-06] MEDS: Norepinephrine/D5W 8mg/250ml 8 MG/250 ML BAG 29.937 MG IV (20:13)
[2025-02-06 21:10] LABS: Base Excess, Venous -8 (-3-3); O2 Saturation, Venous 97 % (96-97); PCO2, Venous 33 mmHg (36-56); PO2, Venous 97 mmHg (15-58); pH, Venous 7.33 (7.33-7.66)
[2025-02-06] MEDS: Magnesium Sulfate 2 GM Ivpb 2 GM/50 ML BAG IV (21:24)
[2025-02-06] MEDS: HYDROCORTISONE SOD SUCC INJ 100 MG 2 ML VIAL 50 MG IV (22:30)
[2025-02-06] MEDS: RINGERS LACTATED 1000 ML 1,000 ML 999 ML IV (22:30)
--- NOTE | 2025-02-06 22:35 | EKG_ITS ---
[facility] Test Date: 2025-02-06 Pat Name: CHON QUINONEZ [facility] Gender[facility] Account Assistant: : 1950 Requested By: Mariano Simmons Order Number: [id number] Reading MD: Mariano Smimons Measurements Intervals [place] Rate: 62 P: 51 SD: 178 QRS: -32 QRSD: 85 T: -13 QT: 471 QTc: 481 Interpretive Statements SINUS RHYTHM WITH FREQUENT SUPRAVENTRICULAR PREMATURE COMPLEXES LEFT AXIS DEVIATION [QRS AXIS < -30] LOW QRS VOLTAGE IN PRECORDIAL LEADS [QRS DEFLECTION < 1.0 mV IN CHEST LEADS] POSSIBLE RIGHT VENTRICULAR CONDUCTION DELAY [RSR (QR) IN V1/V2] PROLONGED QT INTERVAL Compared to ECG 02/06/2025 15:39:02 Left-axis deviation now present Prolonged QT interval now present Sinus bradycardia no longer present T-wave abnormality no longer present /store/S0/[id number].pdf
[2025-02-06 22:49] LABS: Base Excess, Venous -7 (-3-3); O2 Saturation, Venous 100 % (96-97); PCO2, Venous 32 mmHg (36-56); PO2, Venous 186 mmHg (15-58); pH, Venous 7.34 (7.33-7.66)
[2025-02-06 23:14] LABS: Albumin, Serum 3.2 gm/dL (3.4-4.8); Anion Gap 14 (7-16); BUN/Creatinine Ratio 33 Ratio (12-20); Blood Urea Nitrogen 26 mg/dL (9-23); Calcium 7.9 mg/dL (8.3-10.6); Calcium (Corrected) 8.5 mg/dL (8.5-10.1); Carbon Dioxide 17.9 mMol/L (20.0-31.0); Chloride 119 mMol/L (98-107); Creatinine (Component) 0.8 mg/dL (0.6-1.3); Estimated Creatinine Clearance 49.3 mL/min (>60); Glucose 202 mg/dL (74-106); Osmolality,Calculated 310 (275-295); Phosphorous 2.4 mg/dL (2.4-5.1); Potassium 4.8 mMol/L (3.4-5.1); Sodium 151 mMol/L (136-145); eGFR > 60 See Note
--- NOTE | 2025-02-06 23:15 | EKG_ITS ---
[facility] Test Date: 2025-02-06 Pat Name: CHON QUINONEZ [facility] Operations Dispatcher: YULI : 1950 Requested By: Mariano Simmons Order Number: [id number] Reading MD: Mariano Simmons Measurements Intervals [place] Rate: 64 P: 75 MN: 152 QRS: -30 QRSD: 76 T: 76 QT: 454 QTc: 470 Interpretive Statements SINUS RHYTHM LOW QRS VOLTAGE IN PRECORDIAL LEADS PROBABLE SEPTAL MYOCARDIAL INFARCTION , OF INDETERMINATE AGE Compared to ECG 02/06/2025 16:08:53 Myocardial infarct finding now present Left-axis deviation no longer present Prolonged QT interval no longer present /store/S0/[id number].pdf
[2025-02-06 23:16] LABS: Troponin I 1.051 ng/mL (0.0-0.045)
[2025-02-07] VITALS (100 sets, daily range): BP systolic 59–125; BP diastolic 40–79; PULSE 54–84; RESP 0–97; TEMP 36.4–37.5; O2SAT 91–99; BMI 19.5
[2025-02-07] MEDS: VASOPRESSIN IN NS IVPB 20 UNIT/100 ML BAG 9 UNIT IV ×2 (03:54→14:04)
[2025-02-07 04:51] LABS: Base Excess, Venous -7 (-3-3); O2 Saturation, Venous 100 % (96-97); PCO2, Venous 29 mmHg (36-56); PO2, Venous 137 mmHg (15-58); pH, Venous 7.38 (7.33-7.66)
[2025-02-07 04:53] LABS: Basophils # (Auto) 0.0 Thou/mm3 (0.0-0.2); Basophils % (Auto) 0 % (0-2.5); Eosinophils # (Auto) 0.1 Thou/mm3 (0.0-0.5); Eosinophils % (Auto) 0 % (0-10); Hematocrit 36.5 % (36.0-46.0); Hemoglobin 10.9 g/dL (12.0-16.0); Immature Granulocytes Auto 0.19 Thou/mm3 (0.00-0.00); Lymphocytes # (Auto) 1.0 Thou/mm3 (1.0-4.8); Lymphocytes % (Auto) 5 % (10-50); Mean Corpuscular HGB Conc 29.9 g/dl (31.0-37.0); Mean Corpuscular Hemoglobin 25.6 pg (25.0-35.0); Mean Corpuscular Volume 86 fL (80-100); Monocytes # (Auto) 0.5 Thou/mm3 (0.0-0.8); Monocytes % (Auto) 3 % (0-12); Neutrophils # (Auto) 16.8 Thou/mm3 (1.8-7.7); Neutrophils % (Auto) 91 % (37-80); Nucleated Red Blood Cell # 0.00 Thou/mm3 (0.00-0.00); Nucleated Red Blood Cell % 0 /100 WBC (0); Platelet Count 389 Thou/mm3 (140-440); RDW Standard Deviation 47.9 fL (36.4-46.3); Red Blood Count 4.25 Miln/mm3 (4.00-5.20); White Blood Count 18.6 Thou/mm3 (3.6-11.0)
[2025-02-07 05:17] LABS: Glucose Estimated Average 105 mg/dL (80-131); Hemoglobin A1C 5.3 % Hgb (4.8-6.0)
[2025-02-07 05:18] LABS: Alanine Aminotransferase 39 U/L (10-49); Albumin, Serum 3.4 gm/dL (3.4-4.8); Albumin/Globulin Ratio 1.5 (1.2-2.2); Alkaline Phosphatase 63 U/L (46-116); Anion Gap 12 (7-16); Aspartate Amino Transferase 43 U/L (0-34); BUN/Creatinine Ratio 26 Ratio (12-20); Bilirubin,Total 0.3 mg/dL (0.3-1.2); Blood Urea Nitrogen 21 mg/dL (9-23); Calcium 8.1 mg/dL (8.3-10.6); Calcium (Corrected) 8.6 mg/dL (8.5-10.1); Carbon Dioxide 18.2 mMol/L (20.0-31.0); Cardiac Risk Estimate 4.2 RATIO (3.7-5.6); Chloride 118 mMol/L (98-107); Cholesterol 114 mg/dL (132-200); Creatinine (Component) 0.8 mg/dL (0.6-1.3); Estimated Creatinine Clearance 49.3 mL/min (>60); Globulin 2.3 gm/dL (2.3-3.5); Glucose 232 mg/dL (74-106); HDL Cholesterol 27 mg/dL (40-60); LDL Cholesterol,Calculated 60 mg/dL (0-130); Magnesium 2.4 mg/dL (1.6-2.6); Osmolality,Calculated 304 (275-295); Phosphorous 2.9 mg/dL (2.4-5.1); Potassium 4.6 mMol/L (3.4-5.1); Sodium 148 mMol/L (136-145); Total Protein 5.7 gm/dL (5.7-8.2); Triglycerides 134 mg/dL (30-150); eGFR > 60 See Note
[2025-02-07 05:19] LABS: Troponin I 0.833 ng/mL (0.0-0.045)
[2025-02-07] MEDS: HYDROCORTISONE SOD SUCC INJ 100 MG 2 ML VIAL 50 MG IV ×4 (05:38→23:30)
[2025-02-07] MEDS: Sodium Bicarb Inj 8.4% SYR 50 ML SYRINGE IV (05:38)
[2025-02-07] MEDS: PIPER/TAZO 3.375 GM PREMIX 3.375 GM/50 ML BAG IV ×3 (05:38→21:06)
[2025-02-07] MEDS: HEPARIN SOD INJ 5000 UNIT/ML VIAL SC ×3 (05:38→21:05)
[2025-02-07] MEDS: INSULIN LISPRO (AdmeLOG) 1 UNIT/0.01 ML UNIT SC (06:01)
[2025-02-07] MEDS: Norepinephrine/D5W 8mg/250ml 8 MG/250 ML BAG 18.711 MG IV (06:51)
[2025-02-07 08:05] LABS: Base Excess, Venous -3 (-3-3); Lactate (Lactic Acid) 2.0 mMol/L (0.4-2.0); O2 Saturation, Venous 100 % (96-97); PCO2, Venous 32 mmHg (36-56); PO2, Venous 190 mmHg (15-58); pH, Venous 7.42 (7.33-7.66)
[2025-02-07] MEDS: VANCOMYCIN/NS 750 MG IVPB 750 MG/150 ML BAG 120 MG IV ×2 (09:18→21:06)
--- NOTE | 2025-02-07 10:51 | XR_ITS ---
Examination: Abdomen sonogram, complete Date and time of exam: February 07, 2025, 1542 hours INDICATIONS: Abdominal pain flank pain several weeks. Technique: Multiple real-time grayscale transabdominal sonographic images of the abdomen have been obtained. Findings: Possible gallbladder sludge Suspicious for fluid around the wall of the gallbladder Common bile duct 0.7 cm no stones Pancreas obscured by bowel gas Aorta not enlarged Liver 15.4 cm fatty infiltration Minimal fluid adjacent to liver Normal hepatopetal portal venous flow Patent IVC Right kidney 8.8 cm renal cortex 1.1 cm Left kidney 7.9 cm cortex 0.9 cm Spleen 7.1 cm IMPRESSION: Fluid adjacent to the gallbladder wall, consider MRCP or HIDA scan follow-up to exclude cholecystitis Small kidneys with bilateral renal cortical thinning Suspicious for mild ascites
--- NOTE | 2025-02-07 12:00 | ESPR_ITS ---
Documentation for date of: 02/07/25 Subjective Subjective Interval history: 02/06/2025: 74-year-old female with past medical history of hypertension, DM2, hyperlipidemia, and Alzheimer's (nonverbal at baseline) came into the ED brought in by her daughter due to lower activity than normal and decreased p.o. intake for the past 2-3 days. Patient speaks Japanese and daughter also speaks Japanese therefore the automatic spinning lathe setter GENA #ID [id number] was used to take most of the history. Given the patient is nonverbal at baseline most of the history was syncopal and the daughter. Stated that patient at baseline is mostly bedbound and in order to get her of the need 2-3 people to actually help her stand up and move around. Otherwise she mentioned that patient has not had any nausea, vomiting, diarrhea, or cough as of recently and that she did have the ulcer in her sacral area for around 2 or 3 days and has rapidly progressed and gotten worse. Otherwise no other complaints at this time. ED course: Initially came in hypotensive, tachycardic, and febrile. Initial labs were relevant for leukocytosis 12.9, hyponatremia 153, hypochloremia 117, and lactic acidosis at 2.1 which downtrended to 1.1 and patient's UA was unremarkable. Initial imaging clued chest x-ray which did not show any pneumonia or pulmonary edema, chest/abdomen/pelvis CT which only showed abundant stool in the rectum and mild cystitis, and head CT which was unremarkable. Patient did get initial EKG which showed sinus rhythm with some diffuse ST depressions likely secondary to demand ischemia in the setting of shock. Repeat EKG also showed sinus bradycardia with heart rate of 59 with QTc of 419. In the ER patient was started on Levophed and was requiring high dose vasopressors and was already on Levophed 0.5 during assessment. She also was more bradycardic and had a short episode of tachycardia secondary to being maxed out on Levophed in the ER. Otherwise has been bradycardic in the low 50s high 40s. Patient in the ER got an A-line and central line placed. 02/07/2025: Pt examined at bedside today, No acute overnight events, telemetry reviewed, vitals stable overnight, weaning off vasopressors. Initial labs today include worsening leukocytosis 18, hemoglobin 10.9, sodium 148, chloride 118, bicarbonate 18, glucose 232, calcium 8.6, AST ALT 43 and 39 respectively, troponin 0.83. Spoke with family who stated that patient has not had any abdominal procedures including a cholecystectomy. They also reiterated that patient was brought in due to not being able to follow some commands and also due to poor oral intake. They also are aware of patient's baseline dementia as well. Denies any recent travel. Patient is taking care of by her daughter. Exam Vital Signs Temp Pulse Resp BP Pulse Ox O2 Del Method 99.5 F 71 18 108/49 L 99 Room Air 02/07/25 08:00 02/07/25 11:31 02/07/25 11:02/07/25 11:02/07/25 11:02/07/25 11:00 Narrative Exam General: Elderly, Frail, Japanese speaking woman, AAOx1 HEENT: Dry mucous membranes, conjunctiva clear, EOMI, PERRLA, Cardiovascular: S1, S2, radial pulses +2 bilat, RRR, no JVD, prominent breastbone Pulmonary: CTAB bilat no cough, no wheezing GI: Abdomen soft, right upper quadrant tenderness upon light and deep palpation, bowel sounds present Extremities: No presence of trace or pitting edema in lower extremities bilaterally, dorsalis pedis pulses +2 bilaterally Back: Coccygeal ulcer present around L3/L4, no active discharge, no bone visualized, Stage II, pressure ulcer wound Skin: Poor skin turgor Neuro: AAOx1, does not follow commands, no focal motor or sensory deficits in the UE or LE bilat Psych: Unable to fully cooperate Objective Labs 02/07/25 04:25 02/07/25 04:25 Labs: Laboratory Results - last 24 hr 02/06/25 02/06/25 02/06/25 13:04 13:28 17:49 WBC RBC Hgb Hct MCV MCH MCHC RDW Std Deviation Plt Count Neut % (Auto) Lymph % (Auto) [place] % (Auto) Eos % (Auto) Baso % (Auto) Neut # (Auto) Lymph # (Auto) [place] # (Auto) Eos # (Auto) Baso # (Auto) Immature Gran # (Auto) Absolute Nucleated RBC Immature Gran % Nucleated RBC % VBG pH VBG pCO2 VBG pO2 VBG O2 Sat (Lion) VBG Base Excess Sodium 153 H Potassium 3.1 L Chloride 120 H Carbon Dioxide 20.0 Anion Gap 13 BUN 20 Creatinine 0.8 Estim Creat Clear Calc 49.3 L eGFR > 60 BUN/Creatinine Ratio 25 H Glucose [address] Glu mg/dL Hemoglobin A1c Calculated Osmolality 312 H Lactic Acid 1.1 Calcium 8.1 L D Corrected Calcium 8.7 Phosphorus 2.7 Magnesium 1.8 Total Bilirubin 0.4 AST 17 ALT 16 Alkaline Phosphatase 61 D Troponin I 0.196 H* Total Protein 5.4 L Albumin 3.3 L D Globulin 2.1 L Albumin/Globulin Ratio 1.6 Triglycerides Cholesterol LDL Cholesterol, Calc HDL Cholesterol Cholesterol/HDL Ratio 02/06/25 02/06/25 02/06/25 18:05 20:50 22:20 WBC RBC Hgb Hct MCV MCH MCHC RDW Std Deviation Plt Count Neut % (Auto) Lymph % (Auto) [place] % (Auto) Eos % (Auto) Baso % (Auto) Neut # (Auto) Lymph # (Auto) [place] # (Auto) Eos # (Auto) Baso # (Auto) Immature Gran # (Auto) Absolute Nucleated RBC Immature Gran % Nucleated RBC % VBG pH 7.27 L 7.33 7.34 VBG pCO2 42 33 L 32 L VBG pO2 42 97 H D 186 H D VBG O2 Sat (Lion) 67 L 97 100 H VBG Base Excess -7 L -8 L -7 L Sodium 151 H Potassium 4.8 D Chloride 119 H Carbon Dioxide 17.9 L Anion Gap 14 BUN 26 H Creatinine 0.8 Estim Creat Clear Calc 49.3 L eGFR > 60 BUN/Creatinine Ratio 33 H Glucose [address] Glu mg/dL Hemoglobin A1c Calculated Osmolality 310 H Lactic Acid Calcium 7.9 L Corrected Calcium 8.5 Phosphorus 2.4 Magnesium Total Bilirubin AST ALT Alkaline Phosphatase Troponin I 1.051 H* D Total Protein Albumin 3.2 L Globulin Albumin/Globulin Ratio Triglycerides Cholesterol LDL Cholesterol, Calc HDL Cholesterol Cholesterol/HDL Ratio 02/07/25 02/07/25 04:25 07:57 WBC 18.6 H D RBC 4.25 Hgb 10.9 L D Hct 36.5 MCV 86 MCH 25.6 MCHC 29.9 L RDW Std Deviation 47.9 H Plt Count 389 Neut % (Auto) 91 H Lymph % (Auto) 5 L [place] % (Auto) 3 Eos % (Auto) 0 Baso % (Auto) 0 Neut # (Auto) 16.8 H Lymph # (Auto) 1.0 [place] # (Auto) 0.5 Eos # (Auto) 0.1 Baso # (Auto) 0.0 Immature Gran # (Auto) 0.19 H Absolute Nucleated RBC 0.00 Immature Gran % 1 H Nucleated RBC % 0 VBG pH 7.38 7.42 VBG pCO2 29 L 32 L VBG pO2 137 H D 190 H D VBG O2 Sat (Lion) 100 H 100 H VBG Base Excess -7 L -3 Sodium 148 H Potassium 4.6 Chloride 118 H Carbon Dioxide 18.2 L Anion Gap 12 BUN 21 Creatinine 0.8 Estim Creat Clear Calc 49.3 L eGFR > 60 BUN/Creatinine Ratio 26 H Glucose [address] Glu mg/dL 105 Hemoglobin A1c 5.3 Calculated Osmolality 304 H Lactic Acid 2.0 Calcium 8.1 L Corrected Calcium 8.6 Phosphorus 2.9 Magnesium 2.4 Total Bilirubin 0.3 AST 43 H ALT 39 Alkaline Phosphatase 63 Troponin I 0.833 H* D Total Protein 5.7 Albumin 3.4 Globulin 2.3 Albumin/Globulin Ratio 1.5 Triglycerides 134 Cholesterol 114 L LDL Cholesterol, Calc 60 HDL Cholesterol 27 L Cholesterol/HDL Ratio 4.2 ABG Interpretation ABG results: 02/06/25 02/06/25 02/06/25 18:05 20:50 22:20 VBG pH 7.27 L 7.33 7.34 VBG pCO2 42 33 L 32 L VBG pO2 42 97 H D 186 H D VBG Base Excess -7 L -8 L -7 L 02/07/25 02/07/25 04:25 07:57 VBG pH 7.38 7.42 VBG pCO2 29 L 32 L VBG pO2 137 H D 190 H D VBG Base Excess -7 L -3 Quality Measures Quality Measures sepsis Current suspected stage: ruled out Possible source: unknown Blood cultures ordered: yes Antibiotic ordered: Yes Advance care planning discussed with:: patient Assessment & Plan Assessment Current Active Medications: Generic Name Dose Route Start Last Admin Trade Name Freq PRN Reason Stop Dose Admin Acetaminophen 650 mg 02/06/25 09:29 02/06/25 09:50 Acetaminophen Supp [address] 03/08/25 09:28 650 mg Q8HR PRN Administration Fever > 100.4 Dextrose 25 ml 02/06/25 18:33 Dextrose 50%-Water Inj 50 Ml Syringe IV 03/08/25 18:32 Q15MIN PRN BG 50-70 responsive npo pt Dextrose 50 ml 02/06/25 18:33 Dextrose 50%-Water Inj 50 Ml Syringe IV 03/08/25 18:32 Q15MIN PRN BG <50 OR BG <70 & pt unresponsive Glucagon 1 mg 02/06/25 18:33 Glucagon Inj 1 Mg Vial IM Q15MIN PRN BG <70, and no IV access Heparin Sodium (Porcine) 5,000 unit 02/06/25 16:45 02/07/25 05:38 Heparin Sod Inj 5000 Unit/Ml Vial SC 02/20/25 16:44 5,000 unit Q8HR PANTERA Administration Hydrocortisone Sodium Succinate 50 mg 02/07/25 00:00 02/07/25 11:54 Hydrocortisone Sod Succ Inj 100 Mg 2 Ml Vial IV 03/09/25 00:00 50 mg Q6HR PANTERA Administration Norepinephrine/Dextrose 8 mg in 250 mls @ 4.678 mls/hr 02/06/25 15:45 02/07/25 10:47 Levophed In D5w 8mg/250ml IV 03/08/25 15:44 0.1 mcg/kg/min .Q24H PRN 9.355 mls/hr PER PROTOCOL Titration Protocol 0.05 MCG/KG/MIN Piperacillin/Tazobactam/Dextrose 3.375 gm in 50 mls @ 12.5 mls/hr 02/06/25 22:00 02/07/25 05:38 Zosyn IV 02/13/25 21:59 12.5 mls/hr Q8HR PANTERA Administration Protocol Vasopressin/Sodium Chloride 20 unit in 100 mls @ 9 mls/hr 02/06/25 16:45 02/07/25 03:54 Vasostrict/Ns Ivpb IV 03/08/25 16:44 0.03 unit/min .Q11H7M PRN 9 mls/hr PER PROTOCOL Administration Protocol 0.03 UNIT/MIN Dobutamine HCl/Dextrose 500 mg in 250 mls @ 3.742 mls/hr 02/06/25 18:35 02/06/25 19:03 Dobutrex/D5w Ivpb IV 03/08/25 18:34 2.5 mcg/kg/min On Hold: 02/06/25 21:50 .Q24H PANTERA 3.742 mls/hr 2.5 MCG/KG/MIN Infusion Vancomycin/Sodium Chloride 750 mg in 150 mls @ 120 mls/hr 02/07/25 10:00 02/07/25 09:18 Vancomycin/Ns 750 Mg Ivpb IV 02/14/25 09:59 120 mls/hr BID@1000,2200 PANTERA Administration Protocol Insulin Human Lispro 0 unit 02/06/25 18:45 02/07/25 11:49 Insulin Lispro (Admelog) 1 Unit/0.01 Ml Unit SC 03/08/25 18:44 Not Given Q6HR PANTERA Protocol Ondansetron HCl 4 mg 02/06/25 09:29 02/06/25 09:50 Ondansetron Inj 2 Mg/Ml Inj 2 Ml IVP 03/08/25 09:28 4 mg Q6HR PRN Administration NAUSEA OR VOMITING Pharmacy Consult 1 each 02/07/25 09:00 Vancomycin Pharmacy To Dose 1 Each Each IV 03/09/25 08:59 QDAY PRN CONSULT Plan Assessment 74-year-old female with past medical history of hypertension, DM2, hyperlipidemia, and Alzheimer's (nonverbal at baseline) admitted to the ICU on 02/06/2025 due to distributive shock. Neurology: #Acute on chronic encephalopathy #Hx of Chronic Dementia DDx: Metabolic versus infectious versus worsening dementia. At this time, there is clinical suspicion for possible infectious component of encephalopathy at this time, however patient does have baseline dementia and patient can be experiencing a progression of the disease course. Dx: Head CT within normal limits Rx: TSH. Will hold off on B12 due to no macrocytic evidence seen on CBC. Low threshold for syphilis serology, will hold off on ordering RPR. RRX: Neurocheck every 4 hours, treat underlying infection, RUQ US for infectious workup Cardiology: #Shock DDx: Distributive, cardiogenic At this point, clinical suspicion is more toward distributive/septic shock due to patient presentation with fever, worsening leukocytosis. Cardiac index and stroke-volume were slightly on the lower side on initial presentation, however patient was also volume depleted as well. IVC checked overnight which showed a diameter of 1.[address] a [address] C/A/P with contrast, however gallbladder was not fully visualized. Patient's family does not report history of cholecystectomy, and patient's abdominal exam is positive for right upper quadrant tenderness. No surgical scars seen on abdominal exam. Dx: Echocardiogram, RUQ US Rx: Continue with Levophed and vasopressin, wean down as tolerated. Continue with Zosyn and vancomycin, will de-escalate antibiotics based off pending MRSA screen. RRX: Follow-up RUQ US as above, follow-up echocardiogram #Hx of Hypertension Holding blood pressure medicines in setting of hypotension and shock #NSTEMI type II, likely related to demand ischemia, resolved Pulmonary: No active disease process Gastrointestinal: #Abdominal pain #Stool burden secondary to constipation DDx: Cholecystitis, stool burden, chronic mesenteric ischemia. Patient's family did report that patient did not have a cholecystectomy in the past as noted above. Due to patient's right upper quadrant tenderness, there is concern for cholecystitis which can be missed with CT imaging and therefore requires further workup. Less concern for cholangitis due to liver enzymes not being elevated in addition to ALP and T. bili being normal. Dx: CT C/A/P with contrast did not visualize gallbladder Rx: RUQ US, Lactate, laxative RRX: May consider antibiotic change if patient does not improve and further imaging depending on ultrasound. May consider abdominal x-ray for further assessment of stool burden Nephrology: #NAGMA with respiratory alkalosis #Mixed acid-base disorder DDx: Hyperchloremia, RTA, saline infusion Anion gap of 12, bicarbonate of 18, VBG 7.42 pCO2 of 32 chloride 118 Winter's Formula shows expected bicarbonate of 33-37, compared to 32 seen on VBG, indicating mixed disorder Dx: CMP, VBG Rx: Trend CMP RRX: Consider nephrology consult, consider amp of bicarb if no improvement. Will avoid normal saline and excessive laxatives. #Hyperosmolar hypovolemic hypernatremia #Oliguria DDx: Dehydration, DI, FENa 0.2, estimated urine osmolality 268, UOP 300 cc past 24 hours, Free water deficit of 0.5 L (Correction 145 Na). Kidney is not concentrating urine at this time likely related to oliguria and dehydration Dx: CMP Rx: Will hold off on Bolus due to uncertainty of heart function RRX: Continue with Strict I's and O's, Oral hydration, avoid normal saline, Continue with Pel[place], Bladder scan PRN, #Lactic acidosis, resolved Genitourinary: No active problem Hematology: #Normocytic anemia DDx: Chronic anemia, medication induced, GI Bleed, Cancer, Dx: CBC Rx: Trend CBC, Iron studies panel, Peripheral blood smear, reticulocyte count, ferritin RRX: May consider holding heparin subq if hemoglobin continues to drop, will consider rectal exam #Leukocytosis, worsening DDx: Could be related to infection process and dehydration Dx: CBC, blood cultures Rx: Treat underlying infection and dehydration RRX: Consider further hematologic workup if does not improve Endocrine: #Type II [id number] diabetes mellitus Dx: CMP Rx: Sliding scale insulin, hypoglycemic protocol in place, blood sugar checks with meals, RRX: Adjust sliding scale as needed, will need further adjustment with increased oral intake Infectious Disease: #Sepsis, resolved DDx: Cholecystitis, Sacral Ulcer Pt infectious source could be gallbladder, less likely Sacral as it does not appear infected at this time Lactate peaked at 2.1 qSOFA: 3 points 2 out of 4 SIRS criteria with Leukocytosis and fever and end organ damage with troponin,Sepsis due to 2/4 SIRS criteria with acute sepsis-related organ dysfunction as evidence by ARLEN Was given Sepsis Bolus Dx: BC, Urine Culture, CT C/A/P w/contrast Rx: Zosyn 3.375 mg Q6H IV, Continue with Vasopressin and Levophed, Continue with Stress dosed hydrocortisone, Wound Care RRX: Follow up with RUQ US and consider abx adjustment as needed, Follow up BC and UC #ICU Health maintenance Mechanical ventilation: None Sedation: None Diet: Blenderized pur?e DVT prophylaxis: Heparin subq Q8H GI prophylaxis: None Pelletier: Yes Lines: PIV, right IJ, left radial A-line Antibiotics: Zosyn and Vancomycin CODE STATUS: Full Patient seen and care discussed with my attending physician, Dr. Shayne Dalal, PGY-2 This document was transcribed using voice recognition technology. Minor inaccuracies may be present.
--- NOTE | 2025-02-07 12:18 | PCS.ST ---
Swallow Evaluation completed. See report for details. Recommend blenderized puree diet/regular liquids. Non-functional PO skills, nutritional risk. No s/s of aspiration.
[2025-02-07 13:24] LABS: Chloride,Urine Random 68.2 mMol/L (55.0-125.0); Creatinine,Random Urine 107 mg/dL (30-125); Potassium,Urine Random 102 mMol/L (12-62); Sodium,Urine Random 32.1 mMol/L (20.0-110.0)
--- NOTE | 2025-02-07 13:24 | PC.SS ---
PHOTOGRAPHY ASSISTANT conducted bedside contact with the patient conduct initial assessment and to discuss discharge planning.? At bedside with patient was daughter, Shelbi López .? Patient is Korean speaking.? Daughter provided information for assessment and discharge planning.? Patient resides at home with family.? Patient is wheelchair bound. Patient does not utilize home oxygen.? Patient requires assistance with the completion of ADL?s.? Patient is aligned with [facility].? In addition, family provides assistance with ADL?s and provide transportation on behalf of the patient.? Patient?s medical surrogate decision maker is daughter, Shelbi López.? Patient?s PCP is Miryam Dunlap.? The patient?s neurologist is Dr. Hoang.? The patient does not participate with dialysis.? Patient utilizes [facility]; for medication services.? Discharge plan is for the patient to transition to SNF.? No preferred facility identified.? Patient possesses coverage for transportation.? No further discharge needs identified by the patient?s daughter.? No further intervention required at this time, geriatric social worker will be available to address any further concerns.? Next of Kin: Shelbi Yepezpaulalfonso D/C Plan: SNF
--- NOTE | 2025-02-07 13:37 | PC.SS ---
SNF referrals submitted on [facility]. Responses are pending.
--- NOTE | 2025-02-07 13:41 | PC.SS ---
PASSR completed. Meets Level I criteria.
--- NOTE | 2025-02-07 14:49 | PD.INTPROG ---
Documentation for date of: 02/07/25 Subjective Subjective Interval history: This is a 74yo F admitted for septic shock yesterday evening. No clear source other than sacral wound was noted. Started on abx and given 3lt of IVF in the eR and then started on vasopressors. There have been no acute overnight events. The patient has a history of dementia and is minimally verbal at baseline. There is a language barrier as patient speaks Kyrgyz. Apparently she is near baseline mentation. She has had a good urinary output over the last 24 hours she has been afebrile other than a temp on arrival to the ED. Overnight there was concern for a possible cardiogenic component therefore dobutamine was added onto the patient's Levophed and vasopressin. The patient's SVO 2 was borderline at 67 however repeat were well above the 90s. The dobutamine was stopped overnight at around midnight. Patient continues on Levophed and vasopressin Critical Care Note Critical care time (min.): 45 Exam Vital Signs Temp Pulse Resp BP Pulse Ox O2 Del Method 97.5 F 61 16 100/60 96 Room Air 02/07/25 12:01 02/07/25 14:30 02/07/25 14:30 02/07/25 14:30 02/07/25 14:30 02/07/25 14:00 Narrative Exam General-no acute distress, arousable, nonverbal, thin body habitus HEENT-normocephalic, atraumatic, unable to evaluate oral mucosa due to lack of patient cooperation, sclera icteric Chest-lungs clear to auscultation bilaterally, heart rhythm rhythmic, no bradycardia murmurs auscultated on exam, no increased work of breathing Abdomen-soft, mild discomfort with deep palpation, no rebound or guarding, bowel sounds present, small sacral ulcer present which appears to have some drainage at base though no significant erythema surrounding the borders Extremities-thin with some muscle wasting noted, pulses palpable, no clubbing or mottling, no focal deficits noted Drips Levophed Physical Exam Completion Physical Exam Complete?: Yes Objective - Qa Automation Architect Labs 02/08/25 04:29 02/08/25 04:29 Labs: Laboratory Results - last 24 hr 02/06/25 02/06/25 02/06/25 17:49 18:05 20:50 WBC RBC Hgb Hct MCV MCH MCHC RDW Std Deviation Plt Count Neut % (Auto) Lymph % (Auto) [place] % (Auto) Eos % (Auto) Baso % (Auto) Neut # (Auto) Lymph # (Auto) [place] # (Auto) Eos # (Auto) Baso # (Auto) Immature Gran # (Auto) Absolute Nucleated RBC Immature Gran % Nucleated RBC % VBG pH 7.27 L 7.33 VBG pCO2 42 33 L VBG pO2 42 97 H D VBG O2 Sat (Lion) 67 L 97 VBG Base Excess -7 L -8 L Sodium 153 H Potassium 3.1 L Chloride 120 H Carbon Dioxide 20.0 Anion Gap 13 BUN 20 Creatinine 0.8 Estim Creat Clear Calc 49.3 L eGFR > 60 BUN/Creatinine Ratio 25 H Glucose [address] Glu mg/dL Hemoglobin A1c Calculated Osmolality 312 H Lactic Acid Calcium 8.1 L D Corrected Calcium 8.7 Phosphorus Magnesium Total Bilirubin 0.4 AST 17 ALT 16 Alkaline Phosphatase 61 D Troponin I 0.196 H* Total Protein 5.4 L Albumin 3.3 L D Globulin 2.1 L Albumin/Globulin Ratio 1.6 Triglycerides Cholesterol LDL Cholesterol, Calc HDL Cholesterol Cholesterol/HDL Ratio Ur Random Creatinine Ur Random Sodium Ur Random Potassium Ur Random Chloride 02/06/25 02/07/25 02/07/25 22:20 04:25 07:57 WBC 18.6 H D RBC 4.25 Hgb 10.9 L D Hct 36.5 MCV 86 MCH 25.6 MCHC 29.9 L RDW Std Deviation 47.9 H Plt Count 389 Neut % (Auto) 91 H Lymph % (Auto) 5 L [place] % (Auto) 3 Eos % (Auto) 0 Baso % (Auto) 0 Neut # (Auto) 16.8 H Lymph # (Auto) 1.0 [place] # (Auto) 0.5 Eos # (Auto) 0.1 Baso # (Auto) 0.0 Immature Gran # (Auto) 0.19 H Absolute Nucleated RBC 0.00 Immature Gran % 1 H Nucleated RBC % 0 VBG pH 7.34 7.38 7.42 VBG pCO2 32 L 29 L 32 L VBG pO2 186 H D 137 H D 190 H D VBG O2 Sat (Lion) 100 H 100 H 100 H VBG Base Excess -7 L -7 L -3 Sodium 151 H 148 H Potassium 4.8 D 4.6 Chloride 119 H 118 H Carbon Dioxide 17.9 L 18.2 L Anion Gap 14 12 BUN 26 H 21 Creatinine 0.8 0.8 Estim Creat Clear Calc 49.3 L 49.3 L eGFR > 60 > 60 BUN/Creatinine Ratio 33 H 26 H Glucose [address] Glu mg/dL 105 Hemoglobin A1c 5.3 Calculated Osmolality 310 H 304 H Lactic Acid 2.0 Calcium 7.9 L 8.1 L Corrected Calcium 8.5 8.6 Phosphorus 2.4 2.9 Magnesium 2.4 Total Bilirubin 0.3 AST 43 H ALT 39 Alkaline Phosphatase 63 Troponin I 1.051 H* D 0.833 H* D Total Protein 5.7 Albumin 3.2 L 3.4 Globulin 2.3 Albumin/Globulin Ratio 1.5 Triglycerides 134 Cholesterol 114 L LDL Cholesterol, Calc 60 HDL Cholesterol 27 L Cholesterol/HDL Ratio 4.2 Ur Random Creatinine Ur Random Sodium Ur Random Potassium Ur Random Chloride 02/07/25 11:13 WBC RBC Hgb Hct MCV MCH MCHC RDW Std Deviation Plt Count Neut % (Auto) Lymph % (Auto) [place] % (Auto) Eos % (Auto) Baso % (Auto) Neut # (Auto) Lymph # (Auto) [place] # (Auto) Eos # (Auto) Baso # (Auto) Immature Gran # (Auto) Absolute Nucleated RBC Immature Gran % Nucleated RBC % VBG pH VBG pCO2 VBG pO2 VBG O2 Sat (Lion) VBG Base Excess Sodium Potassium Chloride Carbon Dioxide Anion Gap BUN Creatinine Estim Creat Clear Calc eGFR BUN/Creatinine Ratio Glucose Estimated Ave Glu mg/dL Hemoglobin A1c Calculated Osmolality Lactic Acid Calcium Corrected Calcium Phosphorus Magnesium Total Bilirubin AST ALT Alkaline Phosphatase Troponin I Total Protein Albumin Globulin Albumin/Globulin Ratio Triglycerides Cholesterol LDL Cholesterol, Calc HDL Cholesterol Cholesterol/HDL Ratio Ur Random Creatinine 107 Ur Random Sodium 32.1 Ur Random Potassium 102 H Ur Random Chloride 68.2 Assessment & Plan Additional Assessment Additional Assessment: In summary this is 74 old female admitted to the ICU with 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 Follow-up on culture result. Hypovolemic and obstructive etiologies are felt to be unlikely as patient has received fluids and there is no obvious source of obstruction. Bedside echo performed yesterday evening had showed adequate contractility Troponinemia-likely secondary to demand ischemia type II in setting of shock, follow-up with echo. EKG noted Resp stable Renal Hypernatremia-secondary to dehydration, encourage p.o. fluids Nongap acidosis-check urine lites, this is a hyperchloremic nongap acidosis GI Constipation-given enema, will start Colace Nutrition-swallow eval requested Endo Stable Heme Leukocytosis-slight take up, secondary to underlying infectious process as well as steroids Anemia-likely partially dilutional DVT prophylaxis-heparin ID Sepsis-unclear source however patient reportedly has some discomfort right upper quadrant obtain abdominal ultrasound Case discussed with ICU team Labs, imaging and records reviewed Approximately 45 critical care been required for evaluation, exam, review, dimension, discussion formation plan of care for this patient with undifferentiated shock at high risk of further ongoing decompensation. Provider Notation Provider Notation: Although this document has been carefully reviewed, there may still be some phonetic and other typographical errors. These errors are purely grammatical due to imperfections in the software program and should not be construed in any way to compromise the substance of the patient's medical care during this visit. Thank you for the opportunity and privilege in assisting you with this patient's care and management.
--- NOTE | 2025-02-07 17:24 | EKG_ITS ---
[facility] Test Date: 2025-02-07 Pat Name: CHON QUINONEZ [facility] Pediatric Critical Care Nurse: YULI : 1950 Requested By: Joe Dalal Order Number: [id number] Reading MD: Joe Dalal Measurements Intervals Abrams Rate: 57 P: 60 IA: 165 QRS: -2 QRSD: 84 T: 102 QT: 478 QTc: 466 Interpretive Statements SINUS BRADYCARDIA LOW QRS VOLTAGE IN PRECORDIAL LEADS SEPTAL MYOCARDIAL INFARCTION , OF INDETERMINATE AGE Compared to ECG 02/06/2025 23:28:31 Sinus rhythm no longer present Myocardial infarct finding still present /store/S0/[id number].pdf
[2025-02-07] MEDS: RINGERS LACTATED 500 ML 500 ML 999 ML IV (18:21)
[2025-02-08] VITALS (51 sets, daily range): BP systolic 78–116; BP diastolic 45–70; PULSE 54–83; RESP 0–154; TEMP 36.2–37; O2SAT 93–99
[2025-02-08] MEDS: VASOPRESSIN IN NS IVPB 20 UNIT/100 ML BAG 9 UNIT IV (02:00)
[2025-02-08 04:59] LABS: Basophils # (Auto) 0.0 Thou/mm3 (0.0-0.2); Basophils % (Auto) 0 % (0-2.5); Eosinophils # (Auto) 0.0 Thou/mm3 (0.0-0.5); Eosinophils % (Auto) 0 % (0-10); Hematocrit 32.4 % (36.0-46.0); Hemoglobin 10.1 g/dL (12.0-16.0); Immature Granulocytes Auto 0.12 Thou/mm3 (0.00-0.00); Immature Reticulocyte Fraction 22.9 % (3.0-15.9); Lymphocytes # (Auto) 1.2 Thou/mm3 (1.0-4.8); Lymphocytes % (Auto) 9 % (10-50); Mean Corpuscular HGB Conc 31.2 g/dl (31.0-37.0); Mean Corpuscular Hemoglobin 26.4 pg (25.0-35.0); Mean Corpuscular Volume 85 fL (80-100); Monocytes # (Auto) 0.5 Thou/mm3 (0.0-0.8); Monocytes % (Auto) 4 % (0-12); Neutrophils # (Auto) 11.6 Thou/mm3 (1.8-7.7); Neutrophils % (Auto) 86 % (37-80); Nucleated Red Blood Cell # 0.00 Thou/mm3 (0.00-0.00); Nucleated Red Blood Cell % 0 /100 WBC (0); Platelet Count 270 Thou/mm3 (140-440); RDW Standard Deviation 46.8 fL (36.4-46.3); Red Blood Count 3.83 Miln/mm3 (4.00-5.20); Reticulocyte % (Auto) 1.1 % (0.5-1.5); Reticulocyte Absolute Auto 42.9 Biln/L (25.0-75.0); Reticulocyte Hgb Content 28.3 pg (28.0-35.0); White Blood Count 13.5 Thou/mm3 (3.6-11.0)
[2025-02-08 05:47] LABS: Alanine Aminotransferase 106 U/L (10-49); Albumin, Serum 3.3 gm/dL (3.4-4.8); Alkaline Phosphatase 65 U/L (46-116); Anion Gap 14 (7-16); Aspartate Amino Transferase 81 U/L (0-34); BUN/Creatinine Ratio 26 Ratio (12-20); Bilirubin,Total 0.3 mg/dL (0.3-1.2); Blood Urea Nitrogen 21 mg/dL (9-23); Calcium 8.5 mg/dL (8.3-10.6); Calcium (Corrected) 9.1 mg/dL (8.5-10.1); Carbon Dioxide 20.3 mMol/L (20.0-31.0); Chloride 116 mMol/L (98-107); Creatinine (Component) 0.8 mg/dL (0.6-1.3); Estimated Creatinine Clearance 49.3 mL/min (>60); Glucose 182 mg/dL (74-106); Magnesium 1.9 mg/dL (1.6-2.6); Osmolality,Calculated 306 (275-295); Phosphorous 2.4 mg/dL (2.4-5.1); Potassium 3.9 mMol/L (3.4-5.1); Sodium 150 mMol/L (136-145); eGFR > 60 See Note
[2025-02-08] MEDS: HYDROCORTISONE SOD SUCC INJ 100 MG 2 ML VIAL 50 MG IV (06:14)
[2025-02-08] MEDS: HEPARIN SOD INJ 5000 UNIT/ML VIAL SC ×3 (06:14→21:34)
[2025-02-08] MEDS: PIPER/TAZO 3.375 GM PREMIX 3.375 GM/50 ML BAG IV ×3 (06:15→21:34)
[2025-02-08] MEDS: Norepinephrine/D5W 8mg/250ml 8 MG/250 ML BAG 3.742 MG IV (07:45)
[2025-02-08 09:04] LABS: Thyroid Stimulating Hormone 0.34 uIU/mL (0.55-4.78)
[2025-02-08] MEDS: Magnesium Sulfate 2 GM Ivpb 2 GM/50 ML BAG IV (09:24)
[2025-02-08] MEDS: POTASSIUM CHL 10 mEq IVPB 10 MEQ/100 ML BAG 100 MEQ IV ×2 (09:24→10:24)
[2025-02-08 09:44] LABS: Path Review Blood Smear Sent to Pathologist
[2025-02-08] MEDS: DEXTROSE 5%-WATER 1,000 ML 100 ML IV ×2 (10:48→21:31)
--- NOTE | 2025-02-08 11:11 | ESPR_ITS ---
<Statement entered by Joe Dalal MD - 02/08/25 19:28> I have reviewed the note and agree with the resident's assessment & plan with exceptions as below. I have personally reviewed labs, imaging, home meds/prior records, examined the patient, formulated and discussed management plan with the IM team. Patient examined at bedside today. Patient weaned off Levophed and Vasopressin. Patient remains to have poor oral intake and poor urine output, however this time patient is off vasopressors and hemodynamically stable. Patient continues to have right upper quadrant tenderness in which we relayed this to the hospitalist team for further evaluation of abdominal pain which may require further imaging and possible surgical consultation. Patient was started on D5W for management of hypernatremia and also for poor oral intake. Stress dosed steroids were stopped as well. Goals of care was held with family and insist on wanting all interventions including G-tube if needed and to remain CODE STATUS as full at this time. Patient was then downgraded to the floors at this time. Joe Dalal, PGY-2 Internal Medicine Documentation for date of: 02/08/25 Subjective Subjective Interval history: 02/06/2025: 74-year-old female with past medical history of hypertension, DM2, hyperlipidemia, and Alzheimer's (nonverbal at baseline) came into the ED brought in by her daughter due to lower activity than normal and decreased p.o. intake for the past 2-3 days. Patient speaks Pashto and daughter also speaks Pashto therefore the vein access technician GENA #ID [id number] was used to take most of the history. Given the patient is nonverbal at baseline most of the history was syncopal and the daughter. Stated that patient at baseline is mostly bedbound and in order to get her of the need 2-3 people to actually help her stand up and move around. Otherwise she mentioned that patient has not had any nausea, vomiting, diarrhea, or cough as of recently and that she did have the ulcer in her sacral area for around 2 or 3 days and has rapidly progressed and gotten worse. Otherwise no other complaints at this time. ED course: Initially came in hypotensive, tachycardic, and febrile. Initial labs were relevant for leukocytosis 12.9, hyponatremia 153, hypochloremia 117, and lactic acidosis at 2.1 which downtrended to 1.1 and patient's UA was unremarkable. Initial imaging clued chest x-ray which did not show any pneumonia or pulmonary edema, chest/abdomen/pelvis CT which only showed abundant stool in the rectum and mild cystitis, and head CT which was unremarkable. Patient did get initial EKG which showed sinus rhythm with some diffuse ST depressions likely secondary to demand ischemia in the setting of shock. Repeat EKG also showed sinus bradycardia with heart rate of 59 with QTc of 419. In the ER patient was started on Levophed and was requiring high dose vasopressors and was already on Levophed 0.5 during assessment. She also was more bradycardic and had a short episode of tachycardia secondary to being maxed out on Levophed in the ER. Otherwise has been bradycardic in the low 50s high 40s. Patient in the ER got an A-line and central line placed. 02/07/2025: Pt examined at bedside today, No acute overnight events, telemetry reviewed, vitals stable overnight, weaning off vasopressors. Initial labs today include worsening leukocytosis 18, hemoglobin 10.9, sodium 148, chloride 118, bicarbonate 18, glucose 232, calcium 8.6, AST ALT 43 and 39 respectively, troponin 0.83. Spoke with family who stated that patient has not had any abdominal procedures including a cholecystectomy. They also reiterated that patient was brought in due to not being able to follow some commands and also due to poor oral intake. They also are aware of patient's baseline dementia as well. Denies any recent travel. Patient is taking care of by her daughter. 02/08/2025 Pt examined at bedside today, overnight dobutamine was held on levophed was decreased, patient had a BM. Leukocytosis is improving 13.5, hemoglobin 10.1 reticulocyte count 22.9, sodium 150 is worsening, Cl- 116, bicarbonate 20.3 glucose 182, calculated osmolality 306 corrected calcium 9.1, AST 81 ALT 106 ALP 65, Albumin 3.3 TSH 0.34. Calculated free water deficit 1.8 L. Starting 2 L of D5W rate 100 Family is leaning towards PEG tube at the moment for feeding. Patient is now off pressor support, stopping hydrocortisone today. If pressures remain stable plan to downgrade. Exam Vital Signs Temp Pulse Resp BP Pulse Ox O2 Del Method 98.4 F 69 14 86/55 L 97 Room Air 02/08/25 08:00 02/08/25 11:00 02/08/25 11:00 02/08/25 11:00 02/08/25 11:00 02/08/25 08:00 Narrative Exam General: Elderly, Frail, Pashto speaking woman, AAOx1 HEENT: Dry mucous membranes, conjunctiva clear, EOMI, PERRLA, Cardiovascular: S1, S2, radial pulses +2 bilat, RRR, no JVD, prominent breastbone Pulmonary: CTAB bilat no cough, no wheezing GI: Abdomen soft, right upper quadrant tenderness upon light and deep palpation, bowel sounds present Extremities: No presence of trace or pitting edema in lower extremities bilaterally, dorsalis pedis pulses +2 bilaterally Back: Coccygeal ulcer present around L3/L4, no active discharge, no bone visualized, Stage II, pressure ulcer wound Skin: Poor skin turgor Neuro: AAOx1, does not follow commands, no focal motor or sensory deficits in the UE or LE bilat Psych: Unable to fully cooperate Objective Labs 02/08/25 04:29 02/08/25 04:29 Labs: Laboratory Results - last 24 hr 02/07/25 02/08/25 11:13 04:29 WBC 13.5 H D RBC 3.83 L Hgb 10.1 L Hct 32.4 L MCV 85 MCH 26.4 MCHC 31.2 RDW Std Deviation 46.8 H Plt Count 270 D Neut % (Auto) 86 H Lymph % (Auto) 9 L [place] % (Auto) 4 Eos % (Auto) 0 Baso % (Auto) 0 Neut # (Auto) 11.6 H Lymph # (Auto) 1.2 [place] # (Auto) 0.5 Eos # (Auto) 0.0 Baso # (Auto) 0.0 Immature Gran # (Auto) 0.12 H Absolute Nucleated RBC 0.00 Immature Gran % 1 H Nucleated RBC % 0 Smear Path Review Sent to Pathologist Retic Count (auto) 1.1 Absolute Retic 42.9 Immature Retic Fraction 22.9 H Retic Hgb Content CHr 28.3 Sodium 150 H Potassium 3.9 D Chloride 116 H Carbon Dioxide 20.3 Anion Gap 14 BUN 21 Creatinine 0.8 Estim Creat Clear Calc 49.3 L eGFR > 60 BUN/Creatinine Ratio 26 H Glucose 182 H D Calculated Osmolality 306 H Calcium 8.5 Corrected Calcium 9.1 Phosphorus 2.4 Magnesium 1.9 Total Bilirubin 0.3 AST 81 H ALT 106 H Alkaline Phosphatase 65 Albumin 3.3 L TSH 0.34 L Ur Random Creatinine 107 Ur Random Sodium 32.1 Ur Random Potassium 102 H Ur Random Chloride 68.2 ABG Interpretation ABG results: 02/06/25 02/06/25 02/06/25 18:05 20:50 22:20 VBG pH 7.27 L 7.33 7.34 VBG pCO2 42 33 L 32 L VBG pO2 42 97 H D 186 H D VBG Base Excess -7 L -8 L -7 L 02/07/25 02/07/25 04:25 07:57 VBG pH 7.38 7.42 VBG pCO2 29 L 32 L VBG pO2 137 H D 190 H D VBG Base Excess -7 L -3 Quality Measures Quality Measures sepsis Current suspected stage: ruled out Possible source: unknown Blood cultures ordered: yes Antibiotic ordered: Yes Advance care planning discussed with:: other Assessment & Plan Assessment Current Active Medications: Generic Name Dose Route Start Last Admin Trade Name Freq PRN Reason Stop Dose Admin Acetaminophen 650 mg 02/06/25 09:29 02/06/25 09:50 Acetaminophen Supp 650 Mg Supp W[place] 03/08/25 09:28 650 mg Q8HR PRN Administration Fever > 100.4 Dextrose 25 ml 02/06/25 18:33 Dextrose 50%-Water Inj 50 Ml Syringe IV 03/08/25 18:32 Q15MIN PRN BG 50-70 responsive npo pt Dextrose 50 ml 02/06/25 18:33 Dextrose 50%-Water Inj 50 Ml Syringe IV 03/08/25 18:32 Q15MIN PRN BG <50 OR BG <70 & pt unresponsive Docusate Sodium 100 mg 02/07/25 13:30 Docusate Sod 100 Mg Capsule PO 03/09/25 13:29 QDAY PRN CONSTIPATION Protocol Glucagon 1 mg 02/06/25 18:33 Glucagon Inj 1 Mg Vial IM Q15MIN PRN BG <70, and no IV access Heparin Sodium (Porcine) 5,000 unit 02/06/25 16:45 02/08/25 06:14 Heparin Sod Inj 5000 Unit/Ml Vial SC 02/20/25 16:44 5,000 unit Q8HR PANTERA Administration Piperacillin/Tazobactam/Dextrose 3.375 gm in 50 mls @ 12.5 mls/hr 02/06/25 22:00 02/08/25 06:15 Zosyn IV 02/13/25 21:59 12.5 mls/hr Q8HR PANTERA Administration Protocol Dextrose 1,000 mls @ 100 mls/hr 02/08/25 10:30 02/08/25 10:48 D5w IV 02/09/25 06:29 100 mls/hr .Q10H PANTERA Administration Insulin Human Lispro 0 unit 02/06/25 18:45 02/08/25 05:58 Insulin Lispro (Admelog) 1 Unit/0.01 Ml Unit SC 03/08/25 18:44 Not Given Q6HR PANTERA Protocol Ondansetron HCl 4 mg 02/06/25 09:29 02/06/25 09:50 Ondansetron Inj 2 Mg/Ml Inj 2 Ml IVP 03/08/25 09:28 4 mg Q6HR PRN Administration NAUSEA OR VOMITING Plan Assessment 74-year-old female with past medical history of hypertension, DM2, hyperlipidemia, and Alzheimer's (nonverbal at baseline) admitted to the ICU on 02/06/2025 due to distributive shock. Patient is able to be weened off of pressors, MAP of 72, will be downgraded to floors today. Neurology: #Acute on chronic encephalopathy #Hx of Chronic Dementia DDx: Metabolic versus infectious versus worsening dementia. At this time, there is clinical suspicion for possible infectious component of encephalopathy at this time, however patient does have baseline dementia and patient can be experiencing a progression of the disease course. Dx: Head CT within normal limits Rx: TSH: 0.34. Will hold off on B12 due to no macrocytic evidence seen on CBC. Low threshold for syphilis serology, will hold off on ordering RPR. RRX: Neurocheck every 4 hours, treat underlying infection, RUQ US for infectious workup Cardiology: #Shock DDx: Distributive, cardiogenic At this point, clinical suspicion is more toward distributive/septic shock due to patient presentation with fever, worsening leukocytosis. Cardiac index and stroke-volume were slightly on the lower side on initial presentation, however patient was also volume depleted as well. IVC checked overnight which showed a diameter of 1.[address] a [address] C/A/P with contrast, however gallbladder was not fully visualized. Patient's family does not report history of cholecystectomy, and patient's abdominal exam is positive for right upper quadrant tenderness. No surgical scars seen on abdominal exam. ECHO: LV size is normal and systolic fx is mildly reduced. Estimated EF 45-50%, Grade 1 diastolic dysfunction. Estimated RSVP 17mmHg. No mitral valve stenosis and mild regurgitation. Mild MAC. Trace tricuspid valve regurgitation. Left atrium is mildly enlarged, normal right atrium Dx: Echocardiogram, RUQ US Rx: Continue with Levophed and vasopressin, wean down as tolerated. Continue with Zosyn DC'd vancomycin due to negative MRSA. RRX: Follow-up RUQ US as above #Hx of Hypertension Holding blood pressure medicines in setting of hypotension and shock #NSTEMI type II, likely related to demand ischemia, resolved Pulmonary: No active disease process Gastrointestinal: #Abdominal pain #Stool burden secondary to constipation DDx: Cholecystitis, stool burden, chronic mesenteric ischemia. Patient's family did report that patient did not have a cholecystectomy in the past as noted above. Due to patient's right upper quadrant tenderness, there is concern for cholecystitis which can be missed with CT imaging and therefore requires further workup. Less concern for cholangitis due to liver enzymes not being elevated in addition to ALP and T. bili being normal. Dx: CT C/A/P with contrast did not visualize gallbladder Rx: RUQ US, Lactate, laxative RRX: May consider antibiotic change if patient does not improve and further imaging depending on ultrasound. May consider abdominal x-ray for further assessment of stool burden Nephrology: #NAGMA with respiratory alkalosis #Mixed acid-base disorder DDx: Hyperchloremia, RTA, saline infusion Anion gap of 12, bicarbonate of 18, VBG 7.42 pCO2 of 32 chloride 118 Winter's Formula shows expected bicarbonate of 33-37, compared to 32 seen on VBG, indicating mixed disorder Dx: CMP, VBG Rx: Trend CMP RRX: Consider nephrology consult, consider amp of bicarb if no improvement. Will avoid normal saline and excessive laxatives. #Hyperosmolar hypovolemic hypernatremia #Oliguria DDx: Dehydration, DI, FENa 0.2, estimated urine osmolality 306, UOP 255 cc past 24 hours, Free water deficit of 1.8 L (Correction 151 Na). Kidney is not concentrating urine at this time likely related to oliguria and dehydration. Dx: CMP Rx: Will hold off on Bolus due to uncertainty of heart function RRX: Continue with Strict I's and O's, Oral hydration, avoid normal saline, Continue with Pellet[place], Bladder scan PRN, Given 2L D5W #Lactic acidosis, resolved Genitourinary: No active problem Hematology: #Normocytic Anemia/Anemia of chronic disease DDx: Chronic disease, chronic anemia, medication induced, GI Bleed, Cancer, reticulocyte count elevated 22.9, pending smear. No blood noted in rectal exam. Iron panel (iron 21, TIBC 172, Iron sat 12%, Unsat Iron Binding 151 (L), ferritin 307 (H)). No blood seen on rectal exam. Dx: CBC Rx: Trend CBC, Iron studies panel, Peripheral blood smear, reticulocyte count, ferritin RRX: May consider holding heparin subq if hemoglobin continues to drop, will consider rectal exam #Leukocytosis, improving DDx: Could be related to infection process and dehydration Dx: CBC, blood cultures Rx: Treat underlying infection and dehydration RRX: Consider further hematologic workup if does not improve Endocrine: #Type II [id number] diabetes mellitus Dx: CMP Rx: Sliding scale insulin, hypoglycemic protocol in place, blood sugar checks with meals, RRX: Adjust sliding scale as needed, will need further adjustment with increased oral intake Infectious Disease: #Sepsis, resolved DDx: Cholecystitis, Sacral Ulcer Pt infectious source could be gallbladder, less likely Sacral as it does not appear infected at this time Lactate peaked at 2.1 qSOFA: 3 points 2 out of 4 SIRS criteria with Leukocytosis and fever and end organ damage with troponin,Sepsis due to 2/4 SIRS criteria with acute sepsis-related organ dysfunction as evidence by ARLEN Was given Sepsis Bolus Dx: BC, Urine Culture, CT C/A/P w/contrast Rx: Zosyn 3.375 mg Q6H IV, Stopping Vasopressin and Levophed, Stopping Stress dosed hydrocortisone, Wound Care RRX: Follow up with RUQ US and consider abx adjustment as needed, Follow up BC and UC #ICU Health maintenance Mechanical ventilation: None Sedation: None Diet: Blenderized pur?e DVT prophylaxis: Heparin subq Q8H GI prophylaxis: None Pelletier: Yes Lines: PIV, right IJ Antibiotics: Zosyn CODE STATUS: Full Patient seen and care discussed with my attending physician, Dr. Bella and my supervising resident Dr. Joe Dalal. Note written by Wilver Casas MD PGY-1
--- NOTE | 2025-02-08 13:07 | ESPR_ITS ---
Documentation for date of: 02/08/25 Subjective Subjective Interval history: This is a 74yo F admitted for septic shock yesterday evening. No clear source other than sacral wound was noted. Started on abx and given 3lt of IVF in the eR and then started on vasopressors. There have been no acute overnight events. The patient has a history of dementia and is minimally verbal at baseline. There is a language barrier as patient speaks Czech. Apparently she is near baseline mentation. She has had a good urinary output over the last 24 hours she has been afebrile other than a temp on arrival to the ED. Overnight there was concern for a possible cardiogenic component therefore dobutamine was added onto the patient's Levophed and vasopressin. The patient's SVO 2 was borderline at 67 however repeat were well above the 90s. The dobutamine was stopped overnight at around midnight. Patient continues on Levophed and vasopressin 02/08-no acute overnight events, patient appears at baseline, afebrile, decreased urinary output still with minimal p.o. intake, bedridden Critical Care Note Critical care time (min.): 40 Exam Vital Signs Temp Pulse Resp BP Pulse Ox O2 Del Method 97.8 F 67 14 96/64 98 Room Air 02/08/25 12:00 02/08/25 12:00 02/08/25 12:00 02/08/25 12:00 02/08/25 12:00 02/08/25 12:00 Narrative Exam General-no acute distress, awake, advanced dementia, thin body habitus HEENT-normocephalic, atraumatic, sclera icteric, oral mucosa is somewhat dry, Chest-lungs clear to auscultation bilaterally, heart regular rhythmic, no gross murmurs auscultated on exam, no increased work of breathing Abdomen-soft, nontender, sounds present, no rebound or guarding Extremities-no edema, pulses palpable, no clubbing, no cyanosis, no mottling Physical Exam Completion Physical Exam Complete?: Yes Objective - Certified Massage Therapist Labs 02/08/25 04:29 02/08/25 04:29 Labs: Laboratory Results - last 24 hr 02/07/25 02/08/25 11:13 04:29 WBC 13.5 H D RBC 3.83 L Hgb 10.1 L Hct 32.4 L MCV 85 MCH 26.4 MCHC 31.2 RDW Std Deviation 46.8 H Plt Count 270 D Neut % (Auto) 86 H Lymph % (Auto) 9 L [place] % (Auto) 4 Eos % (Auto) 0 Baso % (Auto) 0 Neut # (Auto) 11.6 H Lymph # (Auto) 1.2 [place] # (Auto) 0.5 Eos # (Auto) 0.0 Baso # (Auto) 0.0 Immature Gran # (Auto) 0.12 H Absolute Nucleated RBC 0.00 Immature Gran % 1 H Nucleated RBC % 0 Smear Path Review Sent to Pathologist Retic Count (auto) 1.1 Absolute Retic 42.9 Immature Retic Fraction 22.9 H Retic Hgb Content CHr 28.3 Sodium 150 H Potassium 3.9 D Chloride 116 H Carbon Dioxide 20.3 Anion Gap 14 BUN 21 Creatinine 0.8 Estim Creat Clear Calc 49.3 L eGFR > 60 BUN/Creatinine Ratio 26 H Glucose 182 H D Calculated Osmolality 306 H Calcium 8.5 Corrected Calcium 9.1 Phosphorus 2.4 Magnesium 1.9 Total Bilirubin 0.3 AST 81 H ALT 106 H Alkaline Phosphatase 65 Albumin 3.3 L TSH 0.34 L Ur Random Creatinine 107 Ur Random Sodium 32.1 Ur Random Potassium 102 H Ur Random Chloride 68.2 Assessment & Plan Additional Assessment Additional Assessment: In summary this is 74 old female admitted to the ICU with shock 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 fluids - given some D5w Nongap acidosis-check urine lites, this is a hyperchloremic nongap acidosis GI Constipation-given enema, will start Colace Nutrition-swallow eval requested Endo abnl TFTs- pts TSH was checked and found to be low - will need full TFTs though these may be altered with acute illness Heme Leukocytosis-secondary to underlying infectious process as well as steroids - trending back down Anemia-likely partially dilutional - stable DVT prophylaxis-heparin ID Sepsis-unclear source and all Cx were NTD Case discussed with ICU team and family Labs, imaging and records reviewed Approximately 40 critical care been required for evaluation, exam, review, dimension, discussion formation plan of care for this patient with undifferentiated shock at high risk of further ongoing decompensation. Provider Notation Provider Notation: Although this document has been carefully reviewed, there may still be some phonetic and other typographical errors. These errors are purely grammatical due to imperfections in the software program and should not be construed in any way to compromise the substance of the patient's medical care during this visit. Thank you for the opportunity and privilege in assisting you with this patient's care and management.
[2025-02-08 13:13] LABS: Albumin/Globulin Ratio 1.5 (1.2-2.2); Globulin 2.2 gm/dL (2.3-3.5); Total Protein 5.5 gm/dL (5.7-8.2)
[2025-02-08 13:24] LABS: Ferritin 307 ng/mL (7.3-270.7); Iron 21 mcg/dL (50-170); Percent Iron Saturation 12 % (20-55); Total Iron Binding Capacity 172 mcg/dL (250-425); Unsaturated Iron Binding 151 (225-295)
--- NOTE | 2025-02-08 14:29 | ESPR_ITS ---
<Statement entered by Juan Jim MD - 02/08/25 16:38> I saw and examined patient personally and supervised PGY 1 resident, Dr. Jade with formulating a management plan. I agree with the documentation with the exceptions as listed below. Vidya Rayh 74F pmhx significant for hypertension, DM2, hyperlipidemia, and Alzheimer's (minimally verbal at baseline) admitted to the ICU on 02/06/2025 due to distributive shock 2/2 cholecystitis vs chronic sacral ulcer. On admission etiology of shock was suspected to be distributive and patient was started on Levophed, vasopressin, dobutamine infusion and stress dose hydrocortisone for refractory shock. Also she was empirically started on Zosyn and vancomycin IV pending blood culture. On 02/07 vasopressin and stress dose steroids were discontinued. This morning on 02/08 Levophed infusion was also discontinued and patient is currently maintaining a MAP between 65?70. Abdomen ultrasound showed distended gallbladder with minimal fluid surrounding, sludge borderline CBD at 0.7 cm. On exam patient is extremely tender to palpation in epigastrium and right upper quadrant. Also she had no p.o. intake for past 48-72 hours due to nausea and pain. Currently on Zosyn 3.375 g IV Q8 hourly for suspected cholecystitis. Also on D5W for hypernatremia. General surgery, Dr. Tesfaye was consulted. Problem list: 1. Distributive shock secondary to sacral ulcer versus acute cholecystitis?resolving 2. Acute kidney injury 3. Oliguria 4. Hyperosmolar hypovolemic hyponatremia 5. Chronic systolic congestive heart failure [EF 45-50%] 6. Alzheimer's dementia 7. Chronic normocytic anemia 8. Tzk-[id number] diabetes mellitus type 2 9. Primary hypertension Plan of care discussed with Attending Dr. Trupti Jim MD PGY 2 Disclaimer: This note was dictated by speech recognition. Minor errors in selling underwriter may be present due to voice recognition software. Documentation for date of: 02/08/25 Subjective Subjective Interval history: Patient downgraded to floors. Patient presented with decreased activity, PO intake and RUQ tenderness. On admission, hypotensive, tachycardic, febrile with leukocytosis 12.9, ALT/AST and Tbili wnl and lactic acidosis 2.1. End organ damage NSTEMI type II. Patient initially admitted to ICU 02/06 for septic shock requiring 3 pressors and stress dosed hydrocotrisone. Eventually weaned off and downgraded 02/08. Patient is seen and examined in ICU with family member present. Minimally verbal and AOx1 at baseline. Did not communicate but exquisite tenderness at RUQ on light palpation with guarding. Family requests PEG tube for nutrition however will reevaluate as patient is actively recovering from septic shock and PO intake may improve following recovery. Continue Zosyn and vanc discontinued. Per ICU, will give 2L D5W for hypernatremia and dehydration. Given RUQ tenderness and RUQ US findings, will consult surgery. Exam Vital Signs Temp Pulse Resp BP Pulse Ox O2 Del Method 97.8 F 67 14 96/64 98 Room Air 02/08/25 12:00 02/08/25 12:00 02/08/25 12:00 02/08/25 12:00 02/08/25 12:00 02/08/25 12:00 Narrative Exam GENERAL: AOx1, no acute distress, elderly, thin and frail HEENT: mucous membranes dry, bilateral sclera anicteric CARDIOVASCULAR: regular rate and rhythm, S1/S2 present, no murmurs appreciated PULMONARY: clear to auscultation bilaterally, no rales/rhonchi/wheezes ABDOMINAL: soft, exquisite RUQ tenderness on light palpation, non-distended, bowel sounds present EXTREMITIES: no peripheral edema SKIN: warm and dry, stage II sacral ulcer present around L3/L4 NEURO: CN II-XII grossly intact, no focal deficits Objective Labs 02/08/25 04:29 02/08/25 04:29 Labs: Laboratory Results - last 24 hr 02/08/25 04:29 WBC 13.5 H D RBC 3.83 L Hgb 10.1 L Hct 32.4 L MCV 85 MCH 26.4 MCHC 31.2 RDW Std Deviation 46.8 H Plt Count 270 D Neut % (Auto) 86 H Lymph % (Auto) 9 L [place] % (Auto) 4 Eos % (Auto) 0 Baso % (Auto) 0 Neut # (Auto) 11.6 H Lymph # (Auto) 1.2 [place] # (Auto) 0.5 Eos # (Auto) 0.0 Baso # (Auto) 0.0 Immature Gran # (Auto) 0.12 H Absolute Nucleated RBC 0.00 Immature Gran % 1 H Nucleated RBC % 0 Smear Path Review Sent to Pathologist Retic Count (auto) 1.1 Absolute Retic 42.9 Immature Retic Fraction 22.9 H Retic Hgb Content CHr 28.3 Sodium 150 H Potassium 3.9 D Chloride 116 H Carbon Dioxide 20.3 Anion Gap 14 BUN 21 Creatinine 0.8 Estim Creat Clear Calc 49.3 L eGFR > 60 BUN/Creatinine Ratio 26 H Glucose 182 H D Calculated Osmolality 306 H Calcium 8.5 Corrected Calcium 9.1 Phosphorus 2.4 Magnesium 1.9 Iron 21 L TIBC 172 L Iron Saturation 12 L Unsat Iron Binding 151 L Ferritin 307 H Total Bilirubin 0.3 AST 81 H ALT 106 H Alkaline Phosphatase 65 Total Protein 5.5 L Albumin 3.3 L Globulin 2.2 L Albumin/Globulin Ratio 1.5 TSH 0.34 L ABG Interpretation ABG results: 02/06/25 02/06/25 02/06/25 18:05 20:50 22:20 VBG pH 7.27 L 7.33 7.34 VBG pCO2 42 33 L 32 L VBG pO2 42 97 H D 186 H D VBG Base Excess -7 L -8 L -7 L 02/07/25 02/07/25 04:25 07:57 VBG pH 7.38 7.42 VBG pCO2 29 L 32 L VBG pO2 137 H D 190 H D VBG Base Excess -7 L -3 Quality Measures Quality Measures sepsis Current suspected stage: sepsis Possible source: unknown Blood cultures ordered: yes Antibiotic ordered: Yes Advance care planning discussed with:: child Assessment & Plan Assessment Current Active Medications: Generic Name Dose Route Start Last Admin Trade Name Freq PRN Reason Stop Dose Admin Acetaminophen 650 mg 02/06/25 09:29 02/06/25 09:50 Acetaminophen Supp 650 Mg Supp WV 03/08/25 09:28 650 mg Q8HR PRN Administration Fever > 100.4 Dextrose 25 ml 02/06/25 18:33 Dextrose 50%-Water Inj 50 Ml Syringe IV 03/08/25 18:32 Q15MIN PRN BG 50-70 responsive npo pt Dextrose 50 ml 02/06/25 18:33 Dextrose 50%-Water Inj 50 Ml Syringe IV 03/08/25 18:32 Q15MIN PRN BG <50 OR BG <70 & pt unresponsive Docusate Sodium 100 mg 02/07/25 13:30 Docusate Sod 100 Mg Capsule PO 03/09/25 13:29 QDAY PRN CONSTIPATION Protocol Glucagon 1 mg 02/06/25 18:33 Glucagon Inj 1 Mg Vial IM Q15MIN PRN BG <70, and no IV access Heparin Sodium (Porcine) 5,000 unit 02/06/25 16:45 02/08/25 06:14 Heparin Sod Inj 5000 Unit/Ml Vial SC 02/20/25 16:44 5,000 unit Q8HR PANTERA Administration Piperacillin/Tazobactam/Dextrose 3.375 gm in 50 mls @ 12.5 mls/hr 02/06/25 22:00 02/08/25 06:15 Zosyn IV 02/13/25 21:59 12.5 mls/hr Q8HR PANTERA Administration Protocol Dextrose 1,000 mls @ 100 mls/hr 02/08/25 10:30 02/08/25 10:48 D5w IV 02/09/25 06:29 100 mls/hr .Q10H PANTERA Administration Insulin Human Lispro 0 unit 02/06/25 18:45 02/08/25 11:57 Insulin Lispro (Admelog) 1 Unit/0.01 Ml Unit SC 03/08/25 18:44 Not Given Q6HR PANTERA Protocol Ondansetron HCl 4 mg 02/06/25 09:29 02/06/25 09:50 Ondansetron Inj 2 Mg/Ml Inj 2 Ml IVP 03/08/25 09:28 4 mg Q6HR PRN Administration NAUSEA OR VOMITING Plan [facility] Atieh 74F pmhx significant for hypertension, DM2, hyperlipidemia, and Alzheimer's (minimally verbal at baseline) admitted to the ICU on 02/06/2025 due to distributive shock 2/2 cholecystitis vs chronic sacral ulcer. #Septic shock, Likely secondary to acute cholecystitis #?Cholecystitis #Sacral ulcer Presented with decreased activity, PO intake and RUQ tenderness. On admission, hypotensive, tachycardic, febrile with leukocytosis 12.9, ALT/AST and Tbili wnl and lactic acidosis 2.1. End organ damage NSTEMI type II. s/p sepsis bolus. Patient initially admitted to ICU 02/06 for septic shock requiring 3 pressors and stress dosed hydrocotrisone. Eventually weaned off and downgraded 02/08. BCx NGTD. UA neg. CXR neg for PNA. Head CT neg for acute processes. 02/06 CTAP: GB not visualized, abundant stool in rectum, moderate L renal scarring, minimal thickening of urinary bladder wall. 02/07 RUQ US fluid adjacent to GB wall, small kidneys w bilateral renal cortical thinning Ddx: infectious etiology cholecystitis vs sacral ulcer as sources, low suspicion of cardiogenic given benign echo findings Vanc (02/06-02/08) due to MRSA nares neg Plan: - Zosyn (02/06- - F/u wound culture - Surgery consulted, recs appreciated #ARLEN, likely prerenal #Oliguria #Hyperosmolar hypovolemic hypernatremia Family endorses poor PO intake. Admission Na 153, Sosm 309, Cr 0.8. During ICU stay, patient noted to have decreased UOP ~300cc/24h, calculated to about 0.2 cc/kg/hr, qualifying KDIGO stage III guidelines of ARLEN of <0.3 cc/kg/hr. FENa 0.2 supporting prerenal dehydration vs sepsis, estimated urine osmolality 268. Ddx: severe dehydration 2/2 poor PO intake 2/2 alzheimers vs septic shock Plan: - Per ICU, will give 2L D5W at 100 cc/hr, monitor closely for fluid overload as patient EF 45-50% G1DD - Strict I&Os, encourage PO hydration, avoid normal saline - CTM UOP #HFmEF (EF 45-50%, 02/2025) No hx of CHF exacerbations. Estimated EF 45-50%, Grade 1 diastolic dysfunction. Estimated RSVP 17mmHg. No mitral valve stenosis and mild regurgitation. Mild MAC. Trace tricuspid valve regurgitation. Left atrium is mildly enlarged, normal right atrium Plan: - Caution with fluid boluses - Keep K>4 and Mg>2 at all times #Acute on chronic encephalopathy Likely toxic/metabolic #Hx of Chronic Dementia Has hx of Alzheimers on donepezil, memantine, brexpiprazole and sertraline. At baseline minimally verbal and AOx1. Head CT neg for acute processes Ddx: Alzheimers vs infectious vs metabolic from acidosis vs polypharmacy Plan: - Treat underlying infection - CTM mental status - Neurocheck q4h #Normocytic Anemia likely anemia of chronic disease Noted to have Hgb 10.9 with MCV 86 following IVF. Reticulocyte count elevated 1.1 indicating intact production. Iron panel (iron 21, TIBC 172, Iron sat 12%, Unsat Iron Binding 151 (L), ferritin 307. No overt areas of bleeding, rectal exam done in ICU no blood noted. DDx: Chronic disease, chronic anemia, medication induced, GI Bleed Plan: - CTM CBC - F/u peripheral smear #NIDDM2 a1c 5.3. Home metformin 500 mg QD Plan: - SSI step 1 - Hypoglycemia protocol #Hx of Hypertension Holding blood pressure medicines in setting of hypotension and shock #NSTEMI type II, likely related to demand ischemia, resolved #Lactic acidosis, resolved #NAGMA with respiratory alkalosis, resolved #Mixed acid-base disorder Hospital management: Lines: PIV, R IJ Diet: Blenderized puree Bowel: docusate prn GI prophylaxis: None DVT prophylaxis: heparin q8h Disposition: pending improvement UOP, IVF, IV abx CODE STATUS: FULL CODE Plan of care discussed with attending Dr. Lyles, and PGY-2 Dr. Jim. Ade Jade DO PGY-1 Internal Medicine Attending Provider Attestation/Addendum I have discussed and was present for the essential components of the history, physical examination, diagnosis, and treatment plan with the resident. I agree with the patient's care as documented by the resident and amended herein by me. Dom Lyles DO. Although this document has been carefully reviewed, there may still be some phonetic and other typographical errors. These errors are purely grammatical due to imperfections in the software program and should not be construed in any way to compromise the substance of the patient's medical care during this visit.
[2025-02-08] MEDS: RINGERS LACTATED 500 ML 500 ML 999 ML IV (19:30)
[2025-02-09] VITALS (9 sets, daily range): BP systolic 77–110; BP diastolic 47–63; PULSE 48–89; RESP 15–27; TEMP 36.1–36.3; O2SAT 97–99; BMI 23.3
[2025-02-09] MEDS: PIPER/TAZO 3.375 GM PREMIX 3.375 GM/50 ML BAG IV ×3 (05:33→21:57)
[2025-02-09] MEDS: HEPARIN SOD INJ 5000 UNIT/ML VIAL SC ×3 (05:33→21:57)
[2025-02-09 06:20] LABS: Basophils # (Auto) 0.0 Thou/mm3 (0.0-0.2); Basophils % (Auto) 0 % (0-2.5); Eosinophils # (Auto) 0.0 Thou/mm3 (0.0-0.5); Eosinophils % (Auto) 0 % (0-10); Hematocrit 29.7 % (36.0-46.0); Hemoglobin 9.4 g/dL (12.0-16.0); Immature Granulocytes Auto 0.04 Thou/mm3 (0.00-0.00); Lymphocytes # (Auto) 1.6 Thou/mm3 (1.0-4.8); Lymphocytes % (Auto) 22 % (10-50); Mean Corpuscular HGB Conc 31.6 g/dl (31.0-37.0); Mean Corpuscular Hemoglobin 26.5 pg (25.0-35.0); Mean Corpuscular Volume 84 fL (80-100); Monocytes # (Auto) 0.4 Thou/mm3 (0.0-0.8); Monocytes % (Auto) 6 % (0-12); Neutrophils # (Auto) 5.3 Thou/mm3 (1.8-7.7); Neutrophils % (Auto) 72 % (37-80); Nucleated Red Blood Cell # 0.00 Thou/mm3 (0.00-0.00); Nucleated Red Blood Cell % 0 /100 WBC (0); Platelet Count 192 Thou/mm3 (140-440); RDW Standard Deviation 45.7 fL (36.4-46.3); Red Blood Count 3.55 Miln/mm3 (4.00-5.20); White Blood Count 7.4 Thou/mm3 (3.6-11.0)
[2025-02-09 06:33] LABS: Alanine Aminotransferase 79 U/L (10-49); Albumin, Serum 2.7 gm/dL (3.4-4.8); Albumin/Globulin Ratio 1.4 (1.2-2.2); Alkaline Phosphatase 64 U/L (46-116); Anion Gap 10 (7-16); Aspartate Amino Transferase 36 U/L (0-34); BUN/Creatinine Ratio 28 Ratio (12-20); Bilirubin,Total 0.2 mg/dL (0.3-1.2); Blood Urea Nitrogen 17 mg/dL (9-23); Calcium 7.7 mg/dL (8.3-10.6); Calcium (Corrected) 8.7 mg/dL (8.5-10.1); Carbon Dioxide 22.7 mMol/L (20.0-31.0); Chloride 111 mMol/L (98-107); Creatinine (Component) 0.6 mg/dL (0.6-1.3); Estimated Creatinine Clearance 66.0 mL/min (>60); Globulin 2.0 gm/dL (2.3-3.5); Glucose 145 mg/dL (74-106); Magnesium 1.9 mg/dL (1.6-2.6); Osmolality,Calculated 291 (275-295); Phosphorous 1.2 mg/dL (2.4-5.1); Potassium 2.8 mMol/L (3.4-5.1); Sodium 144 mMol/L (136-145); Total Protein 4.7 gm/dL (5.7-8.2); eGFR > 60 See Note
[2025-02-09] MEDS: POT PHOS 15 mMol in NS 250 ML 15 MMOL/250 ML BAG 62.5 MMOL IV ×2 (08:47→11:47)
--- NOTE | 2025-02-09 08:47 | PC.SS ---
Update: Patient receiving IV antibiotics. D/C plan SNF upon medical clearance.
[2025-02-09] MEDS: POTASSIUM CHL 10 mEq IVPB 10 MEQ/100 ML BAG 100 MEQ IV (08:53)
[2025-02-09] MEDS: POTASSIUM CHLORIDE 10% 20 MEQ/15 ML UDC 40 MEQ PO (08:54)
[2025-02-09] MEDS: ALBUMIN HUMAN-KJDA 25% IVPB 25 GM/100 ML BTL IV (11:46)
[2025-02-09] MEDS: RINGERS LACTATED 1000 ML 1,000 ML 250 ML IV (11:50)
--- NOTE | 2025-02-09 13:05 | ESPR_ITS ---
<Statement entered by Juan Jim MD - 02/09/25 13:32> I saw and examined patient personally and supervised PGY 1 resident, Dr. Jade with formulating a management plan. I agree with the documentation with the exceptions as listed below. Vidya Rayh 74F pmhx significant for hypertension, DM2, hyperlipidemia, and Alzheimer's (minimally verbal at baseline) admitted to the ICU on 02/06/2025 due to distributive shock 2/2 cholecystitis vs chronic sacral ulcer. On admission etiology of shock was suspected to be distributive and patient was started on Levophed, vasopressin, dobutamine infusion and stress dose hydrocortisone for refractory shock. Also she was empirically started on Zosyn and vancomycin IV pending blood culture. On 02/07 vasopressin and stress dose steroids were discontinued. This morning on 02/08 Levophed infusion was also discontinued and patient is currently maintaining a MAP between 65?70. Abdomen ultrasound showed distended gallbladder with minimal fluid surrounding, sludge borderline CBD at 0.7 cm. On exam patient is extremely tender to palpation in epigastrium and right upper quadrant. Also she had no p.o. intake for past 48-72 hours due to nausea and pain. Currently on Zosyn 3.375 g IV Q8 hourly for suspected cholecystitis. Also on D5W for hypernatremia. General surgery, Dr. Tesfaye was consulted. Problem list: 1. Distributive shock secondary to sacral ulcer versus acute cholecystitis?resolving 2. Acute kidney injury 3. Oliguria 4. Hyperosmolar hypovolemic hyponatremia 5. Chronic systolic congestive heart failure [EF 45-50%] 6. Alzheimer's dementia 7. Chronic normocytic anemia 8. Gic-zaplmdm-jcedouswy diabetes mellitus type 2 9. Primary hypertension Today patient still remains at her baseline nonverbal. Also p.o. intake is about the same as yesterday, very minimal with sips of water in between. Her family asked if they can bring food from home for her, we agreed. Her blood pressure is hypotensive with maps between 60?65. Ordered albumin 25 g IV x 1 and Ringer's lactate 1L IVF at 250 cc/h. Phosphorus 1.2, potassium 2.8. Ordered K-Phos 30 mmol IV x 1 and KCl 40 mEq IV x 1. Repeat renal panel at 1800. Plan of care discussed with Attending Dr. Trupti Jim MD PGY 2 Disclaimer: This note was dictated by speech recognition. Minor errors in lawyer probate may be present due to voice recognition software. Documentation for date of: 02/09/25 Subjective Subjective Interval history: MAP remains 60-65, LR 500 cc given and attempted to give midodrine however patient refused to swallow. Patient examined at bedside. Patient is minimally verbal but expresses no to being in pain. Persistent right upper quadrant pain on palpation. Unclear as to why patient does not want to swallow and daughter at bedside reports low appetite. VS: MAP 60 and HR high 50s, afebrile. WBC markedly improved, Hgb slightly downtrending will continue to monitor. K 2.8 and Phos 1.2, repleted with KPhos 30 mEq and KCl 10 mEq, patient was able to sip some of KCl liquid when initially ordered. Started 1L LR at 250 cc an hour and albumin 25 g x 1. Encourage p.o. intake and continue to monitor UOP which is improving. Wound culture grew ESBL and Proteus mirabilis, continue Zosyn as both are sensitive. Per nursing home social worker, patient already has SNF set up. Exam Vital Signs Temp Pulse Resp BP Pulse Ox O2 Del Method 97.0 F 64 24 H 86/56 L 99 Room Air 02/09/25 12:00 02/09/25 12:00 02/09/25 12:00 02/09/25 12:00 02/09/25 12:00 02/09/25 12:00 Narrative Exam GENERAL: AOx1, no acute distress, elderly, thin and frail, Bengali speaking HEENT: mucous membranes dry, bilateral sclera anicteric CARDIOVASCULAR: regular rate and rhythm, S1/S2 present, no murmurs appreciated PULMONARY: clear to auscultation bilaterally, no rales/rhonchi/wheezes ABDOMINAL: soft, exquisite RUQ tenderness on palpation, non-distended, bowel sounds present EXTREMITIES: no peripheral edema SKIN: warm and dry, stage II sacral ulcer present around L3/L4 NEURO: CN II-XII grossly intact, no focal deficits Objective Labs 02/09/25 04:35 02/09/25 04:35 Labs: Laboratory Results - last 24 hr 02/08/25 02/09/25 04:29 04:35 WBC 7.4 D RBC 3.55 L Hgb 9.4 L Hct 29.7 L MCV 84 MCH 26.5 MCHC 31.6 RDW Std Deviation 45.7 Plt Count 192 D Neut % (Auto) 72 Lymph % (Auto) 22 [place] % (Auto) 6 Eos % (Auto) 0 Baso % (Auto) 0 Neut # (Auto) 5.3 Lymph # (Auto) 1.6 [place] # (Auto) 0.4 Eos # (Auto) 0.0 Baso # (Auto) 0.0 Immature Gran # (Auto) 0.04 H Absolute Nucleated RBC 0.00 Immature Gran % 1 H Nucleated RBC % 0 Sodium 144 Potassium 2.8 L D Chloride 111 H Carbon Dioxide 22.7 Anion Gap 10 BUN 17 Creatinine 0.6 Estim Creat Clear Calc 66.0 eGFR > 60 BUN/Creatinine Ratio 28 H Glucose 145 H Calculated Osmolality 291 Calcium 7.7 L Corrected Calcium 8.7 Phosphorus 1.2 L Magnesium 1.9 Iron 21 L TIBC 172 L Iron Saturation 12 L Unsat Iron Binding 151 L Ferritin 307 H Total Bilirubin 0.2 L AST 36 H ALT 79 H Alkaline Phosphatase 64 Total Protein 5.5 L 4.7 L Albumin 2.7 L D Globulin 2.2 L 2.0 L Albumin/Globulin Ratio 1.5 1.4 ABG Interpretation ABG results: 02/06/25 02/06/25 02/06/25 18:05 20:50 22:20 VBG pH 7.27 L 7.33 7.34 VBG pCO2 42 33 L 32 L VBG pO2 42 97 H D 186 H D VBG Base Excess -7 L -8 L -7 L 02/07/25 02/07/25 04:25 07:57 VBG pH 7.38 7.42 VBG pCO2 29 L 32 L VBG pO2 137 H D 190 H D VBG Base Excess -7 L -3 Quality Measures Quality Measures sepsis Current suspected stage: sepsis Possible source: unknown Blood cultures ordered: yes Antibiotic ordered: Yes Advance care planning discussed with:: child Assessment & Plan Assessment Current Active Medications: Generic Name Dose Route Start Last Admin Trade Name Freq PRN Reason Stop Dose Admin Acetaminophen 650 mg 02/06/25 09:29 02/06/25 09:50 Acetaminophen Supp 650 Mg Supp IL 03/08/25 09:28 650 mg Q8HR PRN Administration Fever > 100.4 Dextrose 25 ml 02/06/25 18:33 Dextrose 50%-Water Inj 50 Ml Syringe IV 03/08/25 18:32 Q15MIN PRN BG 50-70 responsive npo pt Dextrose 50 ml 02/06/25 18:33 Dextrose 50%-Water Inj 50 Ml Syringe IV 03/08/25 18:32 Q15MIN PRN BG <50 OR BG <70 & pt unresponsive Docusate Sodium 100 mg 02/07/25 13:30 Docusate Sod 100 Mg Capsule PO 03/09/25 13:29 QDAY PRN CONSTIPATION Protocol Glucagon 1 mg 02/06/25 18:33 Glucagon Inj 1 Mg Vial IM Q15MIN PRN BG <70, and no IV access Heparin Sodium (Porcine) 5,000 unit 02/06/25 16:45 02/09/25 05:33 Heparin Sod Inj 5000 Unit/Ml Vial SC 02/20/25 16:44 5,000 unit Q8HR PANTERA Administration Piperacillin/Tazobactam/Dextrose 3.375 gm in 50 mls @ 12.5 mls/hr 02/06/25 22:00 02/09/25 05:33 Zosyn IV 02/13/25 21:59 12.5 mls/hr Q8HR PANTERA Administration Protocol Potassium Phosphate 15 mmol in 250 mls @ 62.5 mls/hr 02/09/25 08:02 02/09/25 11:47 Pot Phos 15 Mmol In Ns 250 Ml IV 02/09/25 16:01 62.5 mls/hr Q4H PANTERA Administration Lactated Ringer's 1,000 mls @ 250 mls/hr 02/09/25 11:41 02/09/25 11:50 Lactated Ringers IV 02/09/25 15:40 250 mls/hr .Q4H ONE Administration Insulin Human Lispro 0 unit 02/06/25 18:45 02/09/25 11:57 Insulin Lispro (Admelog) 1 Unit/0.01 Ml Unit SC 03/08/25 18:44 Not Given Q6HR PANTERA Protocol Ondansetron HCl 4 mg 02/06/25 09:29 02/06/25 09:50 Ondansetron Inj 2 Mg/Ml Inj 2 Ml IVP 03/08/25 09:28 4 mg Q6HR PRN Administration NAUSEA OR VOMITING Plan Radwa Atieh 74F pmhx significant for hypertension, DM2, hyperlipidemia, and Alzheimer's (minimally verbal at baseline) admitted to the ICU on 02/06/2025 due to distributive shock 2/2 cholecystitis vs chronic sacral ulcer. #Septic shock, Likely secondary to acute cholecystitis #?Cholecystitis #Sacral ulcer Presented with decreased activity, PO intake and RUQ tenderness. On admission, hypotensive, tachycardic, febrile with leukocytosis 12.9, ALT/AST and Tbili wnl and lactic acidosis 2.1. End organ damage NSTEMI type II. s/p sepsis bolus. Patient initially admitted to ICU 02/06 for septic shock requiring 3 pressors and stress dosed hydrocotrisone. Eventually weaned off and downgraded 02/08. BCx NGTD. UA neg. CXR neg for PNA. Head CT neg for acute processes. Wound Cx: ESBL and proteus mirabilis 02/06 CTAP: GB not visualized, abundant stool in rectum, moderate L renal scarring, minimal thickening of urinary bladder wall. 02/07 RUQ US fluid adjacent to GB wall, small kidneys w bilateral renal cortical thinning Ddx: infectious etiology cholecystitis vs sacral ulcer as sources, low suspicion of cardiogenic given benign echo findings Vanc (02/06-02/08) due to MRSA nares neg Plan: - Zosyn (02/06- - Surgery consulted, recs appreciated: no need for intervention at this time - Encourage p.o. intake and moderate sips of Ensure #ARLEN, likely prerenal #Oliguria #Hyperosmolar hypovolemic hypernatremia Family endorses poor PO intake. Admission Na 153, Sosm 309, Cr 0.8. During ICU stay, patient noted to have decreased UOP ~300cc/24h, calculated to about 0.2 cc/kg/hr, qualifying KDIGO stage III guidelines of ARLEN of <0.3 cc/kg/hr. FENa 0.2 supporting prerenal dehydration vs sepsis, estimated urine osmolality 268. Ddx: severe dehydration 2/2 poor PO intake 2/2 alzheimers vs septic shock Plan: - 1L LR at 250 cc/hr and albumin 25 g x1 - Strict I&Os, encourage PO hydration, avoid normal saline - CTM UOP #HFmEF (EF 45-50%, 02/2025) No hx of CHF exacerbations. Estimated EF 45-50%, Grade 1 diastolic dysfunction. Estimated RSVP 17mmHg. No mitral valve stenosis and mild regurgitation. Mild MAC. Trace tricuspid valve regurgitation. Left atrium is mildly enlarged, normal right atrium Plan: - Caution with fluid boluses - Keep K>4 and Mg>2 at all times #Acute on chronic encephalopathy Likely toxic/metabolic #Hx of Chronic Dementia Has hx of Alzheimers on donepezil, memantine, brexpiprazole and sertraline. At baseline minimally verbal and AOx1. Head CT neg for acute processes Ddx: Alzheimers vs infectious vs metabolic from acidosis vs polypharmacy Plan: - Treat underlying infection - CTM mental status #Normocytic normochromic anemia likely anemia of chronic disease Noted to have Hgb 10.9 with MCV 86 following IVF. Reticulocyte count elevated 1.1 indicating intact production. Iron panel (iron 21, TIBC 172, Iron sat 12%, Unsat Iron Binding 151 (L), ferritin 307. No overt areas of bleeding, rectal exam done in ICU no blood noted. Smear shows normocytic normochromic anemia, mature neutrophilia DDx: Chronic disease, chronic anemia, medication induced Plan: - CTM CBC #NIDDM2 a1c 5.3. Home metformin 500 mg QD Plan: - SSI step 1 - Hypoglycemia protocol #Hx of Hypertension Holding blood pressure medicines in setting of hypotension and shock #NSTEMI type II, likely related to demand ischemia, resolved #Lactic acidosis, resolved #NAGMA with respiratory alkalosis, resolved #Mixed acid-base disorder Hospital management: Lines: PIV, R IJ Diet: Blenderized puree Bowel: docusate prn GI prophylaxis: None DVT prophylaxis: heparin q8h Disposition: pending improvement UOP, IVF, IV abx CODE STATUS: FULL CODE Plan of care discussed with attending Dr. Lyles, and PGY-2 Dr. Jim. Ade Jade DO PGY-1 Internal Medicine Attending Provider Attestation/Addendum I have discussed and was present for the essential components of the history, physical examination, diagnosis, and treatment plan with the resident. I agree with the patient's care as documented by the resident and amended herein by me. Dom Lyles DO. Although this document has been carefully reviewed, there may still be some phonetic and other typographical errors. These errors are purely grammatical due to imperfections in the software program and should not be construed in any way to compromise the substance of the patient's medical care during this visit.
--- NOTE | 2025-02-09 14:34 | PC.SS ---
Rounding Note: Patient remains on IV antibiotics. Patient is not a candidate for surgical intervention.
[2025-02-09 19:49] LABS: Albumin, Serum 3.4 gm/dL (3.4-4.8); Anion Gap 9 (7-16); BUN/Creatinine Ratio 20 Ratio (12-20); Blood Urea Nitrogen 12 mg/dL (9-23); Calcium 8.5 mg/dL (8.3-10.6); Calcium (Corrected) 9.0 mg/dL (8.5-10.1); Carbon Dioxide 25.7 mMol/L (20.0-31.0); Chloride 111 mMol/L (98-107); Creatinine (Component) 0.6 mg/dL (0.6-1.3); Estimated Creatinine Clearance 66.0 mL/min (>60); Glucose 106 mg/dL (74-106); Osmolality,Calculated 290 (275-295); Phosphorous 2.4 mg/dL (2.4-5.1); Potassium 3.7 mMol/L (3.4-5.1); Sodium 146 mMol/L (136-145); eGFR > 60 See Note
[2025-02-10] VITALS (8 sets, daily range): BP systolic 98–121; BP diastolic 55–86; PULSE 63–72; RESP 12–25; TEMP 35.9–37.1; O2SAT 98–99; BMI 23.9
[2025-02-10] MEDS: HEPARIN SOD INJ 5000 UNIT/ML VIAL SC ×3 (05:53→21:45)
[2025-02-10] MEDS: PIPER/TAZO 3.375 GM PREMIX 3.375 GM/50 ML BAG IV ×3 (05:54→21:44)
[2025-02-10] MEDS: NAPH,KPH MBDB 1 PACKET (1.5 GM) PO (09:06)
[2025-02-10 09:30] LABS: Basophils # (Auto) 0.0 Thou/mm3 (0.0-0.2); Basophils % (Auto) 0 % (0-2.5); Eosinophils # (Auto) 0.0 Thou/mm3 (0.0-0.5); Eosinophils % (Auto) 0 % (0-10); Hematocrit 33.5 % (36.0-46.0); Hemoglobin 10.2 g/dL (12.0-16.0); Immature Granulocytes Auto 0.04 Thou/mm3 (0.00-0.00); Lymphocytes # (Auto) 1.3 Thou/mm3 (1.0-4.8); Lymphocytes % (Auto) 23 % (10-50); Mean Corpuscular HGB Conc 30.4 g/dl (31.0-37.0); Mean Corpuscular Hemoglobin 25.8 pg (25.0-35.0); Mean Corpuscular Volume 85 fL (80-100); Monocytes # (Auto) 0.3 Thou/mm3 (0.0-0.8); Monocytes % (Auto) 5 % (0-12); Neutrophils # (Auto) 4.1 Thou/mm3 (1.8-7.7); Neutrophils % (Auto) 72 % (37-80); Nucleated Red Blood Cell # 0.00 Thou/mm3 (0.00-0.00); Nucleated Red Blood Cell % 0 /100 WBC (0); Platelet Count 124 Thou/mm3 (140-440); RDW Standard Deviation 45.6 fL (36.4-46.3); Red Blood Count 3.95 Miln/mm3 (4.00-5.20); White Blood Count 5.7 Thou/mm3 (3.6-11.0)
[2025-02-10 10:31] LABS: Alanine Aminotransferase 92 U/L (10-49); Albumin, Serum 3.0 gm/dL (3.4-4.8); Albumin/Globulin Ratio 1.4 (1.2-2.2); Alkaline Phosphatase 97 U/L (46-116); Anion Gap 12 (7-16); Aspartate Amino Transferase 55 U/L (0-34); BUN/Creatinine Ratio 18 Ratio (12-20); Bilirubin,Total 0.3 mg/dL (0.3-1.2); Blood Urea Nitrogen 9 mg/dL (9-23); Calcium 8.1 mg/dL (8.3-10.6); Calcium (Corrected) 8.9 mg/dL (8.5-10.1); Carbon Dioxide 19.5 mMol/L (20.0-31.0); Chloride 113 mMol/L (98-107); Creatinine (Component) 0.5 mg/dL (0.6-1.3); Estimated Creatinine Clearance 86.3 mL/min (>60); Globulin 2.1 gm/dL (2.3-3.5); Glucose 81 mg/dL (74-106); Magnesium 1.7 mg/dL (1.6-2.6); Osmolality,Calculated 284 (275-295); Potassium 3.9 mMol/L (3.4-5.1); Sodium 144 mMol/L (136-145); Total Protein 5.1 gm/dL (5.7-8.2); eGFR > 60 See Note
--- NOTE | 2025-02-10 11:18 | PC.SS ---
PSYCHIATRIC MENTAL HEALTH NURSE confirmed with patient's family that preferred SNF is [facility].
[2025-02-10] MEDS: Magnesium Sulfate 2 GM Ivpb 2 GM/50 ML BAG IV (12:16)
[2025-02-10] MEDS: RINGERS LACTATED 1000 ML 1,000 ML 250 ML IV ×3 (12:17→21:04)
--- NOTE | 2025-02-10 13:37 | ESPR_ITS ---
<Statement entered by Juan Jim MD - 02/11/25 15:15> I saw and examined patient personally and supervised PGY 1 resident, Dr. Jade with formulating a management plan. I agree with the documentation with the exceptions as listed below. Vidya Rayh 74F pmhx significant for hypertension, DM2, hyperlipidemia, and Alzheimer's (minimally verbal at baseline) admitted to the ICU on 02/06/2025 due to distributive shock 2/2 cholecystitis vs chronic sacral ulcer. On admission etiology of shock was suspected to be distributive and patient was started on Levophed, vasopressin, dobutamine infusion and stress dose hydrocortisone for refractory shock. Also she was empirically started on Zosyn and vancomycin IV pending blood culture. On 02/07 vasopressin and stress dose steroids were discontinued. This morning on 02/08 Levophed infusion was also discontinued and patient is currently maintaining a MAP between 65?70. Abdomen ultrasound showed distended gallbladder with minimal fluid surrounding, sludge borderline CBD at 0.7 cm. On exam patient is extremely tender to palpation in epigastrium and right upper quadrant. Also she had no p.o. intake for past 48-72 hours due to nausea and pain. Currently on Zosyn 3.375 g IV Q8 hourly for suspected cholecystitis. Also on D5W for hypernatremia. General surgery, Dr. Tesfaye was consulted. Problem list: 1. Distributive shock secondary to sacral ulcer versus acute cholecystitis?resolved 2. Acute kidney injury?resolving 3. Oliguria?resolving 4. Hyperosmolar hypovolemic hypernatremia?resolving 5. Chronic systolic congestive heart failure [EF 45-50%] 6. Alzheimer's dementia 7. Chronic normocytic anemia 8. Wjp-lfphqcs-qahvjjknf diabetes mellitus type 2 9. Primary hypertension For her ARLEN with oliguria, ordered 1 L lactated Ringer's @ 250 cc/h, continue Zosyn IV for cholecystitis. At baseline patient requires maximal assist for transfers. PT assessed patient and recommended SNF upon discharge. Once patient's ARLEN continues to improve, anticipate discharge within next 24 to 48 hours. Plan of care discussed with Attending Dr. Trupti Jim MD PGY 2 Disclaimer: This note was dictated by speech recognition. Minor errors in business process expert may be present due to voice recognition software. Documentation for date of: 02/10/25 Subjective Subjective Interval history: No acute overnight events. Patient seen examined at bedside in the ICU with daughter at bedside. Patient endorses some abdominal pain on palpation of right upper quadrant however improved since yesterday. Per daughter at bedside, patient requires assistance with all ADLs, states is only able to walk to 15 feet with the help of 2 people. Patient urine output greatly improved 1.1 L over 24 hours. VSS. Labs and vitals reviewed. Magnesium 1.7 repleted with 2 g. Continue antibiotics. Start another LR 1 L at 250 cc an hour. ARLEN much improved given increased urine output. Ordered PT. Exam Vital Signs Temp Pulse Resp BP Pulse Ox O2 Del Method 97.8 F 64 12 104/62 98 Room Air 02/10/25 00:00 02/10/25 04:00 02/10/25 04:00 02/10/25 04:00 02/10/25 04:00 02/09/25 16:00 Narrative Exam GENERAL: AOx1, no acute distress, elderly, thin and frail, Vietnamese speaking HEENT: mucous membranes dry, bilateral sclera anicteric CARDIOVASCULAR: regular rate and rhythm, S1/S2 present, no murmurs appreciated PULMONARY: clear to auscultation bilaterally, no rales/rhonchi/wheezes ABDOMINAL: soft, RUQ tenderness on palpation, non-distended, bowel sounds present EXTREMITIES: no peripheral edema SKIN: warm and dry, stage II sacral ulcer present around L3/L4 NEURO: CN II-XII grossly intact, no focal deficits Objective Labs 02/11/25 04:05 02/11/25 04:05 Labs: Laboratory Results - last 24 hr 02/09/25 02/10/25 19:19 08:52 WBC 5.7 RBC 3.95 L Hgb 10.2 L Hct 33.5 L MCV 85 MCH 25.8 MCHC 30.4 L RDW Std Deviation 45.6 Plt Count 124 L D Neut % (Auto) 72 Lymph % (Auto) 23 [place] % (Auto) 5 Eos % (Auto) 0 Baso % (Auto) 0 Neut # (Auto) 4.1 Lymph # (Auto) 1.3 [place] # (Auto) 0.3 Eos # (Auto) 0.0 Baso # (Auto) 0.0 Immature Gran # (Auto) 0.04 H Absolute Nucleated RBC 0.00 Immature Gran % 1 H Nucleated RBC % 0 Sodium 146 H 144 Potassium 3.7 D 3.9 Chloride 111 H 113 H Carbon Dioxide 25.7 19.5 L Anion Gap 9 12 BUN 12 9 Creatinine 0.6 0.5 L Estim Creat Clear Calc 66.0 86.3 eGFR > 60 > 60 BUN/Creatinine Ratio 20 18 Glucose 106 81 Calculated Osmolality 290 284 Calcium 8.5 8.1 L Corrected Calcium 9.0 8.9 Phosphorus 2.4 Magnesium 1.7 Total Bilirubin 0.3 AST 55 H ALT 92 H Alkaline Phosphatase 97 D Total Protein 5.1 L Albumin 3.4 D 3.0 L Globulin 2.1 L Albumin/Globulin Ratio 1.4 ABG Interpretation ABG results: 02/06/25 02/06/25 02/06/25 18:05 20:50 22:20 VBG pH 7.27 L 7.33 7.34 VBG pCO2 42 33 L 32 L VBG pO2 42 97 H D 186 H D VBG Base Excess -7 L -8 L -7 L 02/07/25 02/07/25 04:25 07:57 VBG pH 7.38 7.42 VBG pCO2 29 L 32 L VBG pO2 137 H D 190 H D VBG Base Excess -7 L -3 Quality Measures Quality Measures sepsis Current suspected stage: sepsis (resolved) Possible source: unknown Blood cultures ordered: yes Antibiotic ordered: Yes Advance care planning discussed with:: child Assessment & Plan Assessment Current Active Medications: Generic Name Dose Route Start Last Admin Trade Name Freq PRN Reason Stop Dose Admin Acetaminophen 650 mg 02/06/25 09:29 02/06/25 09:50 Acetaminophen Supp 650 Mg Supp NE 03/08/25 09:28 650 mg Q8HR PRN Administration Fever > 100.4 Dextrose 25 ml 02/06/25 18:33 Dextrose 50%-Water Inj 50 Ml Syringe IV 03/08/25 18:32 Q15MIN PRN BG 50-70 responsive npo pt Dextrose 50 ml 02/06/25 18:33 Dextrose 50%-Water Inj 50 Ml Syringe IV 03/08/25 18:32 Q15MIN PRN BG <50 OR BG <70 & pt unresponsive Docusate Sodium 100 mg 02/07/25 13:30 Docusate Sod 100 Mg Capsule PO 03/09/25 13:29 QDAY PRN CONSTIPATION Protocol Glucagon 1 mg 02/06/25 18:33 Glucagon Inj 1 Mg Vial IM Q15MIN PRN BG <70, and no IV access Heparin Sodium (Porcine) 5,000 unit 02/06/25 16:45 02/10/25 05:53 Heparin Sod Inj 5000 Unit/Ml Vial SC 02/20/25 16:44 5,000 unit Q8HR PANTERA Administration Piperacillin/Tazobactam/Dextrose 3.375 gm in 50 mls @ 12.5 mls/hr 02/06/25 22:00 02/10/25 05:54 Zosyn IV 02/13/25 21:59 12.5 mls/hr Q8HR PANTERA Administration Protocol Lactated Ringer's 1,000 mls @ 250 mls/hr 02/10/25 12:00 02/10/25 12:17 Lactated Ringers IV 03/12/25 11:59 250 mls/hr .Q4H PANTERA Administration Magnesium Sulfate 2 gm in 50 mls @ 25 mls/hr 02/10/25 11:56 02/10/25 12:16 Magnesium Sulfate Ivpb IV 02/10/25 13:55 25 mls/hr X1 ONE Administration Insulin Human Lispro 0 unit 02/06/25 18:45 02/10/25 06:28 Insulin Lispro (Admelog) 1 Unit/0.01 Ml Unit SC 03/08/25 18:44 Not Given Q6HR [facility] Protocol Ondansetron HCl 4 mg 02/06/25 09:29 02/06/25 09:50 Ondansetron Inj 2 Mg/Ml Inj 2 Ml IVP 03/08/25 09:28 4 mg Q6HR PRN Administration NAUSEA OR VOMITING Plan Radwa Atieh 74F pmhx significant for hypertension, DM2, hyperlipidemia, and Alzheimer's (minimally verbal at baseline) admitted to the ICU on 02/06/2025 due to distributive shock 2/2 cholecystitis vs chronic sacral ulcer. #Septic shock, resolved, likely 2/2 acute cholecystitis #?Cholecystitis #Sacral ulcer, ESBL and proteus mirabilis Presented with decreased activity, PO intake and RUQ tenderness. On admission, hypotensive, tachycardic, febrile with leukocytosis 12.9, ALT/AST and Tbili wnl and lactic acidosis 2.1. End organ damage NSTEMI type II. s/p sepsis bolus. Patient initially admitted to ICU 02/06 for septic shock requiring 3 pressors and stress dosed hydrocotrisone. Eventually weaned off and downgraded 02/08. BCx NGTD. UA neg. CXR neg for PNA. Head CT neg for acute processes. Wound Cx: ESBL and proteus mirabilis 02/06 CTAP: GB not visualized, abundant stool in rectum, moderate L renal scarring, minimal thickening of urinary bladder wall. 02/07 RUQ US fluid adjacent to GB wall, small kidneys w bilateral renal cortical thinning Ddx: infectious etiology cholecystitis vs sacral ulcer as sources, low suspicion of cardiogenic given benign echo findings Vanc (02/06-02/08) due to MRSA nares neg Plan: - Zosyn (02/06- ), anticipate 7-10 day course - Surgery consulted, recs appreciated: no need for intervention at this time - Encourage p.o. intake and moderate sips of Ensure - PT ordered #ARLEN, likely prerenal, improving #Oliguria, resolved #Hyperosmolar hypovolemic hypernatremia Family endorses poor PO intake. Admission Na 153, Sosm 309, Cr 0.8. During ICU stay, patient noted to have decreased UOP ~300cc/24h, calculated to about 0.2 cc/kg/hr, qualifying KDIGO stage III guidelines of ARLEN of <0.3 cc/kg/hr. FENa 0.2 supporting prerenal dehydration vs sepsis, estimated urine osmolality 268. UOP vastly improved on 02/09. 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 Estimated EF 45-50%, Grade 1 diastolic dysfunction. Estimated RSVP 17mmHg. No mitral valve stenosis and mild regurgitation. Mild MAC. Trace tricuspid valve regurgitation. Left atrium is mildly enlarged, normal right atrium Plan: - Caution with fluid boluses - Keep K>4 and Mg>2 at all times #Acute on chronic encephalopathy Likely toxic/metabolic, improved #Hx of Chronic Dementia Has hx of Alzheimers on donepezil, memantine, brexpiprazole and sertraline. At baseline minimally verbal and AOx1. Head CT neg for acute processes Ddx: Alzheimers vs infectious vs metabolic from acidosis vs polypharmacy Plan: - Treat underlying infection - CTM mental status #Normocytic normochromic anemia likely anemia of chronic disease Noted to have Hgb 10.9 with MCV 86 following IVF. Reticulocyte count elevated 1.1 indicating intact production. Iron panel (iron 21, TIBC 172, Iron sat 12%, Unsat Iron Binding 151 (L), ferritin 307. No overt areas of bleeding, rectal exam done in ICU no blood noted. Smear shows normocytic normochromic anemia, mature neutrophilia DDx: Chronic disease, chronic anemia, medication induced Plan: - CTM CBC #NIDDM2 a1c 5.3. Home metformin 500 mg QD Plan: - SSI step 1 - Hypoglycemia protocol #Hx of Hypertension Holding blood pressure medicines in setting of hypotension and shock #NSTEMI type II, likely related to demand ischemia, resolved #Lactic acidosis, resolved #NAGMA with respiratory alkalosis, resolved #Mixed acid-base disorder Hospital management: Lines: PIV, R IJ Diet: Blenderized puree Bowel: docusate prn GI prophylaxis: None DVT prophylaxis: heparin q8h Disposition: IVF, IV abx CODE STATUS: FULL CODE Plan of care discussed with attending Dr. Lyles, and PGY-2 Dr. Jim. Ade Jade DO PGY-1 Internal Medicine Attending Provider Attestation/Addendum I have discussed and was present for the essential components of the history, physical examination, diagnosis, and treatment plan with the resident. I agree with the patient's care as documented by the resident and amended herein by me. Dom Lyles DO. Although this document has been carefully reviewed, there may still be some phonetic and other typographical errors. These errors are purely grammatical due to imperfections in the software program and should not be construed in any way to compromise the substance of the patient's medical care during this visit.
--- NOTE | 2025-02-10 15:32 | PC.SS ---
Update: Patient continues to receive IV antibiotics. Abdominal discomfort reported.
--- NOTE | 2025-02-10 15:42 | PC.PT ---
Per patient chart she requires 2 person assist and is mostly wheelchair and bedbound. Patient appears to be at her baseline/PLOF. Per social media coordinator, patient does not need PT eval for SNF placement. Will cancel PT eval at this time as patient is at her PLOF.
--- NOTE | 2025-02-10 18:31 | PC.NURSE ---
Patient arrived to unit at this time. Daughter at bedside.
[2025-02-11] VITALS (14 sets, daily range): BP systolic 112–143; BP diastolic 70–85; PULSE 69–88; RESP 18–25; TEMP 35.9–36.4; O2SAT 95–97; BMI 24.0
[2025-02-11] MEDS: RINGERS LACTATED 1000 ML 1,000 ML 250 ML IV ×2 (01:08→05:21)
[2025-02-11] MEDS: PIPER/TAZO 3.375 GM PREMIX 3.375 GM/50 ML BAG IV ×3 (05:21→21:13)
[2025-02-11] MEDS: HEPARIN SOD INJ 5000 UNIT/ML VIAL SC ×3 (05:32→21:18)
[2025-02-11 05:50] LABS: Basophils # (Auto) 0.0 Thou/mm3 (0.0-0.2); Basophils % (Auto) 0 % (0-2.5); Eosinophils # (Auto) 0.0 Thou/mm3 (0.0-0.5); Eosinophils % (Auto) 1 % (0-10); Hematocrit 32.6 % (36.0-46.0); Hemoglobin 10.4 g/dL (12.0-16.0); Immature Granulocytes Auto 0.08 Thou/mm3 (0.00-0.00); Lymphocytes # (Auto) 1.5 Thou/mm3 (1.0-4.8); Lymphocytes % (Auto) 23 % (10-50); Mean Corpuscular HGB Conc 31.9 g/dl (31.0-37.0); Mean Corpuscular Hemoglobin 26.1 pg (25.0-35.0); Mean Corpuscular Volume 82 fL (80-100); Monocytes # (Auto) 0.4 Thou/mm3 (0.0-0.8); Monocytes % (Auto) 6 % (0-12); Neutrophils # (Auto) 4.7 Thou/mm3 (1.8-7.7); Neutrophils % (Auto) 69 % (37-80); Nucleated Red Blood Cell # 0.00 Thou/mm3 (0.00-0.00); Nucleated Red Blood Cell % 0 /100 WBC (0); Platelet Count 232 Thou/mm3 (140-440); RDW Standard Deviation 43.6 fL (36.4-46.3); Red Blood Count 3.98 Miln/mm3 (4.00-5.20); White Blood Count 6.8 Thou/mm3 (3.6-11.0)
[2025-02-11 06:22] LABS: Alanine Aminotransferase 89 U/L (10-49); Albumin, Serum 2.9 gm/dL (3.4-4.8); Albumin/Globulin Ratio 1.5 (1.2-2.2); Alkaline Phosphatase 102 U/L (46-116); Anion Gap 10 (7-16); Aspartate Amino Transferase 48 U/L (0-34); BUN/Creatinine Ratio 14 Ratio (12-20); Bilirubin,Total 0.4 mg/dL (0.3-1.2); Blood Urea Nitrogen 7 mg/dL (9-23); Calcium 7.9 mg/dL (8.3-10.6); Calcium (Corrected) 8.8 mg/dL (8.5-10.1); Carbon Dioxide 23.4 mMol/L (20.0-31.0); Chloride 109 mMol/L (98-107); Creatinine (Component) 0.5 mg/dL (0.6-1.3); Estimated Creatinine Clearance 86.4 mL/min (>60); Globulin 2.0 gm/dL (2.3-3.5); Glucose 83 mg/dL (74-106); Magnesium 1.8 mg/dL (1.6-2.6); Osmolality,Calculated 280 (275-295); Potassium 3.4 mMol/L (3.4-5.1); Sodium 142 mMol/L (136-145); Total Protein 4.9 gm/dL (5.7-8.2); eGFR > 60 See Note
[2025-02-11] MEDS: FUROSEMIDE INJ 10 MG/ML 4ML VIAL 40 MG IVP (08:29)
--- NOTE | 2025-02-11 08:35 | PC.SS ---
Follow up note: IV diuretics. IV antibiotics.
[2025-02-11] MEDS: POTASSIUM CHL 10 mEq IVPB 10 MEQ/100 ML BAG 100 MEQ IV ×4 (08:37→12:55)
[2025-02-11] MEDS: Magnesium Sulfate 2 GM Ivpb 2 GM/50 ML BAG IV (08:38)
[2025-02-11 08:53] LABS: Phosphorous 2.7 mg/dL (2.4-5.1)
[2025-02-11] MEDS: METOPROLOL SUCCINATE XL 25 MG TABCR PO (11:41)
[2025-02-11] MEDS: LOSARTAN POTASSIUM 25 MG TABLET PO (11:42)
--- NOTE | 2025-02-11 14:20 | ESPR_ITS ---
<Statement entered by Juan Jim MD - 02/11/25 15:46> I saw and examined patient personally and supervised PGY 1 resident, Dr. Jade with formulating a management plan. I agree with the documentation with the exceptions as listed below. Vidya Rayh 74F pmhx significant for hypertension, DM2, hyperlipidemia, and Alzheimer's (minimally verbal at baseline) admitted to the ICU on 02/06/2025 due to distributive shock 2/2 cholecystitis vs chronic sacral ulcer. On admission etiology of shock was suspected to be distributive and patient was started on Levophed, vasopressin, dobutamine infusion and stress dose hydrocortisone for refractory shock. Also she was empirically started on Zosyn and vancomycin IV pending blood culture. On 02/07 vasopressin and stress dose steroids were discontinued. This morning on 02/08 Levophed infusion was also discontinued and patient is currently maintaining a MAP between 65?70. Abdomen ultrasound showed distended gallbladder with minimal fluid surrounding, sludge borderline CBD at 0.7 cm. On exam patient is extremely tender to palpation in epigastrium and right upper quadrant. Also she had no p.o. intake for past 48-72 hours due to nausea and pain. Currently on Zosyn 3.375 g IV Q8 hourly for suspected cholecystitis. Also on D5W for hypernatremia. General surgery, Dr. Tesfaye was consulted. Problem list: 1. Acute kidney injury?resolving 2. Distributive shock secondary to sacral ulcer versus acute cholecystitis?resolved 3. Chronic systolic congestive heart failure [EF 45-50%] 4. Alzheimer's dementia 5. Chronic normocytic anemia 6. Koy-twxaazd-iamgryhto diabetes mellitus type 2 7. Primary hypertension Patient received 4L lactated Ringer's IVF in past 24 hours. Urine output 1600 cc in past 24 hours. Lasix 40 mg IV x 1 given. On exam patient appears clinically euvolemic with trace to mild lower extremity pitting edema. K3.4, Mg 1.8. Repleted with KCl 40 mEq IV x 1 and magnesium sulfate 2 g IV x 1. Continues to be on Zosyn IV for cholecystitis. Patient blood pressure today much improved to 130s over 80s. Started on GDMT with losartan 25 mg p.o. daily and metoprolol succinate 25 mg p.o. daily. Pending improvement of renal function, improvement of this cholecystitis with antibiotics and stabilization of blood pressure anticipate discharge within next 24 to 48 hours to SNF. Plan of care discussed with Attending Dr. Trupti Jim MD PGY 2 Disclaimer: This note was dictated by speech recognition. Minor errors in clinical rehabilitation aide may be present due to voice recognition software. Documentation for date of: 02/11/25 Subjective Subjective Interval history: No acute overnight events. Patient seen examined at bedside with daughter present. Patient is abdominal tenderness improved since yesterday, only grimacing on deep palpation of right upper quadrant. VSS. K 3. repleted with 40 mEq and Mg 1.8, repleted with 2g. Patient received 4 L of fluid yesterday with 1.3 L of output but given history of HFmrEF IV Lasix 40 mg x1 administered. Although on exam, patient not clinically hypervolemic and saturating 96-98% on RA. Given improvement in pressures, started GDMT for HFmrEF with metoprolol succinate 25 mg daily and losartan 25 mg daily and will CTM BP. Exam Vital Signs Temp Pulse Resp BP Pulse Ox O2 Del Method 97.1 F 80 23 H 112/72 97 Room Air 02/11/25 11:43 02/11/25 12:00 02/11/25 11:43 02/11/25 11:43 02/11/25 11:43 02/11/25 11:43 Narrative Exam GENERAL: AOx1, no acute distress, elderly, thin and frail, Wolof speaking HEENT: mucous membranes dry, bilateral sclera anicteric CARDIOVASCULAR: regular rate and rhythm, S1/S2 present, no murmurs appreciated PULMONARY: clear to auscultation bilaterally, no rales/rhonchi/wheezes ABDOMINAL: soft, RUQ tenderness on palpation, non-distended, bowel sounds present EXTREMITIES: no peripheral edema SKIN: warm and dry, stage II sacral ulcer present around L3/L4 NEURO: CN II-XII grossly intact, no focal deficits Objective Labs 02/11/25 04:05 02/11/25 04:05 Labs: Laboratory Results - last 24 hr 02/11/25 04:05 WBC 6.8 RBC 3.98 L Hgb 10.4 L Hct 32.6 L MCV 82 MCH 26.1 MCHC 31.9 RDW Std Deviation 43.6 Plt Count 232 D Neut % (Auto) 69 Lymph % (Auto) 23 F[place]ardo % (Auto) 6 Eos % (Auto) 1 Baso % (Auto) 0 Neut # (Auto) 4.7 Lymph # (Auto) 1.5 Fajardo # (Auto) 0.4 Eos # (Auto) 0.0 Baso # (Auto) 0.0 Immature Gran # (Auto) 0.08 H Absolute Nucleated RBC 0.00 Immature Gran % 1 H Nucleated RBC % 0 Sodium 142 Potassium 3.4 D Chloride 109 H Carbon Dioxide 23.4 Anion Gap 10 BUN 7 L Creatinine 0.5 L Estim Creat Clear Calc 86.4 eGFR > 60 BUN/Creatinine Ratio 14 Glucose 83 Calculated Osmolality 280 Calcium 7.9 L Corrected Calcium 8.8 Phosphorus 2.7 Magnesium 1.8 Total Bilirubin 0.4 AST 48 H ALT 89 H Alkaline Phosphatase 102 Total Protein 4.9 L Albumin 2.9 L Globulin 2.0 L Albumin/Globulin Ratio 1.5 ABG Interpretation ABG results: 02/06/25 02/06/25 02/06/25 18:05 20:50 22:20 VBG pH 7.27 L 7.33 7.34 VBG pCO2 42 33 L 32 L VBG pO2 42 97 H D 186 H D VBG Base Excess -7 L -8 L -7 L 02/07/25 02/07/25 04:25 07:57 VBG pH 7.38 7.42 VBG pCO2 29 L 32 L VBG pO2 137 H D 190 H D VBG Base Excess -7 L -3 Quality Measures Quality Measures sepsis Current suspected stage: sepsis (resolved) Possible source: unknown Blood cultures ordered: yes Antibiotic ordered: Yes Advance care planning discussed with:: child Assessment & Plan Assessment Current Active Medications: Generic Name Dose Route Start Last Admin Trade Name Freq PRN Reason Stop Dose Admin Acetaminophen 650 mg 02/06/25 09:29 02/06/25 09:50 Acetaminophen Supp 650 Mg Supp RI 03/08/25 09:28 650 mg Q8HR PRN Administration Fever > 100.4 Dextrose 25 ml 02/06/25 18:33 Dextrose 50%-Water Inj 50 Ml Syringe IV 03/08/25 18:32 Q15MIN PRN BG 50-70 responsive npo pt Dextrose 50 ml 02/06/25 18:33 Dextrose 50%-Water Inj 50 Ml Syringe IV 03/08/25 18:32 Q15MIN PRN BG <50 OR BG <70 & pt unresponsive Docusate Sodium 100 mg 02/07/25 13:30 Docusate Sod 100 Mg Capsule PO 03/09/25 13:29 QDAY PRN CONSTIPATION Protocol Glucagon 1 mg 02/06/25 18:33 Glucagon Inj 1 Mg Vial IM Q15MIN PRN BG <70, and no IV access Heparin Sodium (Porcine) 5,000 unit 02/06/25 16:45 02/11/25 13:07 Heparin Sod Inj 5000 Unit/Ml Vial SC 02/20/25 16:44 5,000 unit Q8HR PANTERA Administration Piperacillin/Tazobactam/Dextrose 3.375 gm in 50 mls @ 12.5 mls/hr 02/06/25 22:00 02/11/25 13:07 Zosyn IV 02/13/25 21:59 12.5 mls/hr Q8HR PANTERA Administration Protocol Insulin Human Lispro 0 unit 02/06/25 18:45 02/11/25 11:39 Insulin Lispro (Admelog) 1 Unit/0.01 Ml Unit SC 03/08/25 18:44 Not Given Q6HR PANTERA Protocol Losartan Potassium 25 mg 02/11/25 11:30 02/11/25 11:42 Losartan Potassium 25 Mg Tablet PO 03/13/25 11:29 25 mg QDAY PANTERA Administration Metoprolol Succinate 25 mg 02/11/25 11:30 02/11/25 11:41 Metoprolol Succinate Xl 25 Mg Tabcr PO 03/13/25 11:29 25 mg QDAY PANTERA Administration Ondansetron HCl 4 mg 02/06/25 09:29 02/06/25 09:50 Ondansetron Inj 2 Mg/Ml Inj 2 Ml IVP 03/08/25 09:28 4 mg Q6HR PRN Administration NAUSEA OR VOMITING Plan [facility] 74F pmhx significant for hypertension, DM2, hyperlipidemia, and Alzheimer's (minimally verbal at baseline) admitted to the ICU on 02/06/2025 due to distributive shock 2/2 cholecystitis vs chronic sacral ulcer. #Septic shock, resolved, likely 2/2 acute cholecystitis #?Cholecystitis #Sacral ulcer, ESBL and proteus mirabilis Presented with decreased activity, PO intake and RUQ tenderness. On admission, hypotensive, tachycardic, febrile with leukocytosis 12.9, ALT/AST and Tbili wnl and lactic acidosis 2.1. End organ damage NSTEMI type II. s/p sepsis bolus. Patient initially admitted to ICU 02/06 for septic shock requiring 3 pressors and stress dosed hydrocotrisone. Eventually weaned off and downgraded 02/08. BCx NGTD. UA neg. CXR neg for PNA. Head CT neg for acute processes. Wound Cx: ESBL and proteus mirabilis 02/06 CTAP: GB not visualized, abundant stool in rectum, moderate L renal scarring, minimal thickening of urinary bladder wall. 02/07 RUQ US fluid adjacent to GB wall, small kidneys w bilateral renal cortical thinning Ddx: infectious etiology cholecystitis vs sacral ulcer as sources, low suspicion of cardiogenic given benign echo findings Vanc (02/06-02/08) due to MRSA nares neg Plan: - Zosyn (02/06- ), anticipate 7-10 day course - Surgery consulted, recs appreciated: no need for intervention at this time - Encourage p.o. intake and moderate sips of Ensure - PT ordered: SNF #ARLEN, likely prerenal, resolved #Oliguria, resolved #Hyperosmolar hypovolemic hypernatremia, resolved Family endorses poor PO intake. Admission Na 153, Sosm 309, Cr 0.8. During ICU stay, patient noted to have decreased UOP ~300cc/24h, calculated to about 0.2 cc/kg/hr, qualifying KDIGO stage III guidelines of ARLEN of <0.3 cc/kg/hr. FENa 0.2 supporting prerenal dehydration vs sepsis, estimated urine osmolality 268. UOP vastly improved on 02/09. 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 Estimated EF 45-50%, Grade 1 diastolic dysfunction. Estimated RSVP 17mmHg. No mitral valve stenosis and mild regurgitation. Mild MAC. Trace tricuspid valve regurgitation. Left atrium is mildly enlarged, normal right atrium Plan: - Caution with fluid boluses - With improvement of sepsis, start metoprolol XL 25 mg QD and losartan 25 mg QD as BP tolerates - Keep K>4 and Mg>2 at all times #Insufficient intake of food and water Per family at bedside, patient p.o. intake greatly decreased 2 to 3 days prior to admission however before this 2 to 3 days good p.o. intake. Family requesting PEG tube placement. Plan: - Given acuity of poor p.o. intake, likely secondary to sepsis and will continue to monitor p.o. intake as currently, patient is consuming about 25% of meals and family is bringing some outside food #Acute on chronic encephalopathy Likely toxic/metabolic, improved #Hx of Chronic Dementia Has hx of Alzheimers on donepezil, memantine, brexpiprazole and sertraline. At baseline minimally verbal and AOx1. Head CT neg for acute processes Ddx: Alzheimers vs infectious vs metabolic from acidosis vs polypharmacy Plan: - Treat underlying infection - CTM mental status #Normocytic normochromic anemia likely anemia of chronic disease Noted to have Hgb 10.9 with MCV 86 following IVF. Reticulocyte count elevated 1.1 indicating intact production. Iron panel (iron 21, TIBC 172, Iron sat 12%, Unsat Iron Binding 151 (L), ferritin 307. No overt areas of bleeding, rectal exam done in ICU no blood noted. Smear shows normocytic normochromic anemia, mature neutrophilia DDx: Chronic disease, chronic anemia, medication induced Plan: - CTM CBC #NIDDM2 a1c 5.3. Home metformin 500 mg QD Plan: - SSI step 1 - Hypoglycemia protocol #Hx of Hypertension Holding blood pressure medicines in setting of hypotension and shock #NSTEMI type II, likely related to demand ischemia, resolved #Lactic acidosis, resolved #NAGMA with respiratory alkalosis, resolved #Mixed acid-base disorder Hospital management: Lines: PIV, R IJ Diet: Blenderized puree Bowel: docusate prn GI prophylaxis: None DVT prophylaxis: heparin q8h Disposition: IVF, IV abx, improvement in PO intake, initiation of GDMT monitoring BP CODE STATUS: FULL CODE Plan of care discussed with attending Dr. Lyles, and PGY-2 Dr. Jim. Ade Jade, DO PGY-1 Internal Medicine Attending Provider Attestation/Addendum I have discussed and was present for the essential components of the history, physical examination, diagnosis, and treatment plan with the resident. I agree with the patient's care as documented by the resident and amended herein by me. Dom Lyles DO. Although this document has been carefully reviewed, there may still be some phonetic and other typographical errors. These errors are purely grammatical due to imperfections in the software program and should not be construed in any way to compromise the substance of the patient's medical care during this visit.
--- NOTE | 2025-02-11 15:17 | PC.SS ---
SS has sent updated inquiry to [facility] using [employer].
[2025-02-12] VITALS (9 sets, daily range): BP systolic 106–130; BP diastolic 60–74; PULSE 60–79; RESP 16–22; TEMP 36.1–36.5; O2SAT 95–97; BMI 24.0; BMI 12.0
[2025-02-12] MEDS: PIPER/TAZO 3.375 GM PREMIX 3.375 GM/50 ML BAG IV ×2 (05:29→21:50)
[2025-02-12] MEDS: HEPARIN SOD INJ 5000 UNIT/ML VIAL SC ×2 (05:29→21:50)
[2025-02-12 05:36] LABS: Basophils # (Auto) 0.0 Thou/mm3 (0.0-0.2); Basophils % (Auto) 0 % (0-2.5); Eosinophils # (Auto) 0.1 Thou/mm3 (0.0-0.5); Eosinophils % (Auto) 2 % (0-10); Hematocrit 31.8 % (36.0-46.0); Hemoglobin 10.0 g/dL (12.0-16.0); Immature Granulocytes Auto 0.08 Thou/mm3 (0.00-0.00); Lymphocytes # (Auto) 1.7 Thou/mm3 (1.0-4.8); Lymphocytes % (Auto) 26 % (10-50); Mean Corpuscular HGB Conc 31.4 g/dl (31.0-37.0); Mean Corpuscular Hemoglobin 25.4 pg (25.0-35.0); Mean Corpuscular Volume 81 fL (80-100); Monocytes # (Auto) 0.5 Thou/mm3 (0.0-0.8); Monocytes % (Auto) 7 % (0-12); Neutrophils # (Auto) 4.1 Thou/mm3 (1.8-7.7); Neutrophils % (Auto) 63 % (37-80); Nucleated Red Blood Cell # 0.00 Thou/mm3 (0.00-0.00); Nucleated Red Blood Cell % 0 /100 WBC (0); Platelet Count 183 Thou/mm3 (140-440); RDW Standard Deviation 43.2 fL (36.4-46.3); Red Blood Count 3.93 Miln/mm3 (4.00-5.20); White Blood Count 6.5 Thou/mm3 (3.6-11.0)
[2025-02-12 06:11] LABS: Alanine Aminotransferase 85 U/L (10-49); Albumin, Serum 3.0 gm/dL (3.4-4.8); Albumin/Globulin Ratio 1.5 (1.2-2.2); Alkaline Phosphatase 128 U/L (46-116); Anion Gap 10 (7-16); Aspartate Amino Transferase 57 U/L (0-34); BUN/Creatinine Ratio 8 Ratio (12-20); Bilirubin,Total 0.5 mg/dL (0.3-1.2); Blood Urea Nitrogen 5 mg/dL (9-23); Calcium 8.3 mg/dL (8.3-10.6); Calcium (Corrected) 9.1 mg/dL (8.5-10.1); Carbon Dioxide 28.2 mMol/L (20.0-31.0); Chloride 104 mMol/L (98-107); Creatinine (Component) 0.6 mg/dL (0.6-1.3); Estimated Creatinine Clearance 72.0 mL/min (>60); Globulin 2.0 gm/dL (2.3-3.5); Glucose 90 mg/dL (74-106); Magnesium 2.0 mg/dL (1.6-2.6); Osmolality,Calculated 280 (275-295); Phosphorous 3.1 mg/dL (2.4-5.1); Potassium 3.3 mMol/L (3.4-5.1); Sodium 142 mMol/L (136-145); Total Protein 5.0 gm/dL (5.7-8.2); eGFR > 60 See Note
[2025-02-12] MEDS: POTASSIUM CHL 10 mEq IVPB 10 MEQ/100 ML BAG 100 MEQ IV ×4 (08:51→11:56)
[2025-02-12] MEDS: RINGERS LACTATED 1000 ML 1,000 ML 250 ML IV (08:51)
[2025-02-12] MEDS: SERTRALINE HCL 25 MG TABLET PO (08:52)
[2025-02-12] MEDS: METOPROLOL SUCCINATE XL 25 MG TABCR PO (08:52)
[2025-02-12] MEDS: LOSARTAN POTASSIUM 25 MG TABLET PO (08:52)
--- NOTE | 2025-02-12 13:44 | PD.RESPRO ---
Documentation for date of: 02/12/25 Subjective Subjective Interval history: No acute overnight events. Patient seen and examined at bedside with family. Patient grimaces on right upper quadrant palpation, able to open eyes, at baseline not communicating. Per nursing and family, patient consuming about 1-2 bites per meal. Plan for NG tube to be placed today, dietitian consulted for NG tube feeds. Restarted home Alzheimer's and depression medication due to excessive fatigue and sleepiness started yesterday. Will continue IV antibiotics. Due to significant urine output over 24 hours secondary to Lasix administration yesterday, gave 1 L LR. PT to assist with up to chair. Exam Vital Signs Temp Pulse Resp BP Pulse Ox O2 Del Method 97.0 F 66 16 114/62 96 Room Air 02/12/25 12:00 02/12/25 12:00 02/12/25 12:00 02/12/25 12:00 02/12/25 12:00 02/12/25 12:00 Narrative Exam GENERAL: AOx1, no acute distress, elderly, thin and frail, lethargic HEENT: mucous membranes dry, bilateral sclera anicteric CARDIOVASCULAR: regular rate and rhythm, S1/S2 present, no murmurs appreciated PULMONARY: clear to auscultation bilaterally, no rales/rhonchi/wheezes ABDOMINAL: soft, RUQ tenderness on palpation, non-distended, bowel sounds present EXTREMITIES: no peripheral edema SKIN: warm and dry, stage II sacral ulcer present around L3/L4 NEURO: CN II-XII grossly intact, no focal deficits Objective Labs 02/12/25 05:04 02/12/25 05:04 Labs: Laboratory Results - last 24 hr 02/12/25 05:04 WBC 6.5 RBC 3.93 L Hgb 10.0 L Hct 31.8 L MCV 81 MCH 25.4 MCHC 31.4 RDW Std Deviation 43.2 Plt Count 183 D Neut % (Auto) 63 Lymph % (Auto) 26 [place] % (Auto) 7 Eos % (Auto) 2 Baso % (Auto) 0 Neut # (Auto) 4.1 Lymph # (Auto) 1.7 [place] # (Auto) 0.5 Eos # (Auto) 0.1 Baso # (Auto) 0.0 Immature Gran # (Auto) 0.08 H Absolute Nucleated RBC 0.00 Immature Gran % 1 H Nucleated RBC % 0 Sodium 142 Potassium 3.3 L Chloride 104 Carbon Dioxide 28.2 Anion Gap 10 BUN 5 L Creatinine 0.6 Estim Creat Clear Calc 72.0 eGFR > 60 BUN/Creatinine Ratio 8 L Glucose 90 Calculated Osmolality 280 Calcium 8.3 Corrected Calcium 9.1 Phosphorus 3.1 Magnesium 2.0 Total Bilirubin 0.5 AST 57 H ALT 85 H Alkaline Phosphatase 128 H D Total Protein 5.0 L Albumin 3.0 L Globulin 2.0 L Albumin/Globulin Ratio 1.5 ABG Interpretation ABG results: 02/06/25 02/06/25 02/06/25 18:05 20:50 22:20 VBG pH 7.27 L 7.33 7.34 VBG pCO2 42 33 L 32 L VBG pO2 42 97 H D 186 H D VBG Base Excess -7 L -8 L -7 L 02/07/25 02/07/25 04:25 07:57 VBG pH 7.38 7.42 VBG pCO2 29 L 32 L VBG pO2 137 H D 190 H D VBG Base Excess -7 L -3 Quality Measures Quality Measures sepsis Current suspected stage: sepsis (on abx resolved) Possible source: unknown Blood cultures ordered: yes Antibiotic ordered: Yes Advance care planning discussed with:: child Assessment & Plan Assessment Current Active Medications: Generic Name Dose Route Start Last Admin Trade Name Freq PRN Reason Stop Dose Admin Acetaminophen 650 mg 02/06/25 09:29 02/06/25 09:50 Acetaminophen Supp 650 Mg Supp ND 03/08/25 09:28 650 mg Q8HR PRN Administration Fever > 100.4 Dextrose 25 ml 02/06/25 18:33 Dextrose 50%-Water Inj 50 Ml Syringe IV 03/08/25 18:32 Q15MIN PRN BG 50-70 responsive npo pt Dextrose 50 ml 02/06/25 18:33 Dextrose 50%-Water Inj 50 Ml Syringe IV 03/08/25 18:32 Q15MIN PRN BG <50 OR BG <70 & pt unresponsive Docusate Sodium 100 mg 02/07/25 13:30 Docusate Sod 100 Mg Capsule PO 03/09/25 13:29 QDAY PRN CONSTIPATION Protocol Donepezil HCl 10 mg 02/12/25 21:00 Donepezil Hcl 5 Mg Tablet PO 03/14/25 20:59 HS PANTERA Glucagon 1 mg 02/06/25 18:33 Glucagon Inj 1 Mg Vial IM Q15MIN PRN BG <70, and no IV access Heparin Sodium (Porcine) 5,000 unit 02/06/25 16:45 02/12/25 05:29 Heparin Sod Inj 5000 Unit/Ml Vial SC 02/20/25 16:44 5,000 unit Q8HR PANTERA Administration Piperacillin/Tazobactam/Dextrose 3.375 gm in 50 mls @ 12.5 mls/hr 02/06/25 22:00 02/12/25 10:56 Zosyn IV 02/13/25 21:59 Infused Q8HR [facility] Infusion Protocol Insulin Human Lispro 0 unit 02/06/25 18:45 02/12/25 12:29 Insulin Lispro (Admelog) 1 Unit/0.01 Ml Unit SC 03/08/25 18:44 Not Given Q6HR [facility] Protocol Losartan Potassium 25 mg 02/12/25 09:00 02/12/25 08:52 Losartan Potassium 25 Mg Tablet PO 03/14/25 08:59 25 mg QDAY PANTERA Administration Memantine 10 mg 02/12/25 12:45 Memantine Hcl 5 Mg Tablet PO 03/14/25 12:44 BID PANTERA Metoprolol Succinate 25 mg 02/11/25 11:30 02/12/25 08:52 Metoprolol Succinate Xl 25 Mg Tabcr PO 03/13/25 11:29 25 mg QDAY PANTERA Administration Non-Formulary Medication 1 mg 02/12/25 12:45 Brexpiprazole [Rexulti] PO 03/14/25 12:44 QDAY PANTERA Ondansetron HCl 4 mg 02/06/25 09:29 02/06/25 09:50 Ondansetron Inj 2 Mg/Ml Inj 2 Ml IVP 03/08/25 09:28 4 mg Q6HR PRN Administration NAUSEA OR VOMITING Sertraline HCl 25 mg 02/12/25 09:00 02/12/25 08:52 Sertraline Hcl 25 Mg Tablet PO 03/14/25 08:59 25 mg QDAY PANTERA Administration Plan Radla Atieh 74F pmhx significant for hypertension, DM2, hyperlipidemia, and Alzheimer's (minimally verbal at baseline) initially admitted to the ICU on 02/06/2025 due to distributive shock 2/2 cholecystitis vs chronic sacral ulcer, downgraded on 02/08 to floors for further management. Hospital course prolonged by insufficient intake of food and water. #Insufficient intake of food and water Per family at bedside, patient p.o. intake greatly decreased 2 to 3 days prior to admission however before this 2 to 3 days good p.o. intake. Family requesting PEG tube placement. Plan: - NG tube to be placed today - Drug Room Operator consulted for NG tube feeds - 1L LR 250 cc/hr today - Given acuity of poor p.o. intake, likely secondary to sepsis and will continue to monitor p.o. intake - PT to assist with up to chair #Alzheimers #Depression On home brexiprazole, donepezil, sertraline and memantine. Patient noted to have excessive fatigue 02/11 possibly second to home medication being withheld. Plan: - Restart home meds through NG tube - Restarted brexpiprazole 1 mg daily, donepezil 10 mg nightly, memantine 10 mg twice daily, sertraline 25 mg daily #Septic shock, resolved, likely 2/2 acute cholecystitis #?Cholecystitis #Sacral ulcer, ESBL and proteus mirabilis Presented with decreased activity, PO intake and RUQ tenderness. On admission, hypotensive, tachycardic, febrile with leukocytosis 12.9, ALT/AST and Tbili wnl and lactic acidosis 2.1. End organ damage NSTEMI type II. s/p sepsis bolus. Patient initially admitted to ICU 02/06 for septic shock requiring 3 pressors and stress dosed hydrocotrisone. Eventually weaned off and downgraded 02/08. BCx NGTD. UA neg. CXR neg for PNA. Head CT neg for acute processes. Wound Cx: ESBL and proteus mirabilis 02/06 CTAP: GB not visualized, abundant stool in rectum, moderate L renal scarring, minimal thickening of urinary bladder wall. 02/07 RUQ US fluid adjacent to GB wall, small kidneys w bilateral renal cortical thinning Ddx: infectious etiology cholecystitis vs sacral ulcer as sources, low suspicion of cardiogenic given benign echo findings Vanc (02/06-02/08) due to MRSA nares neg Plan: - Zosyn (02/06- ), anticipate 7-10 day course - Surgery consulted, recs appreciated: no need for intervention at this time - PT ordered: SNF #ARLEN, likely prerenal, resolved #Oliguria, resolved #Hyperosmolar hypovolemic hypernatremia, resolved Family endorses poor PO intake. Admission Na 153, Sosm 309, Cr 0.8. During ICU stay, patient noted to have decreased UOP ~300cc/24h, calculated to about 0.2 cc/kg/hr, qualifying KDIGO stage III guidelines of ARLEN of <0.3 cc/kg/hr. FENa 0.2 supporting prerenal dehydration vs sepsis, estimated urine osmolality 268. UOP vastly improved on 02/09. 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 Estimated EF 45-50%, Grade 1 diastolic dysfunction. Estimated RSVP 17mmHg. No mitral valve stenosis and mild regurgitation. Mild MAC. Trace tricuspid valve regurgitation. Left atrium is mildly enlarged, normal right atrium Plan: - Caution with fluid boluses - With improvement of sepsis, start metoprolol XL 25 mg QD and losartan 25 mg QD as BP tolerates - Keep K>4 and Mg>2 at all times #Acute on chronic encephalopathy Likely toxic/metabolic, improved #Hx of Chronic Dementia Has hx of Alzheimers on donepezil, memantine, brexpiprazole and sertraline. At baseline minimally verbal and AOx1. Head CT neg for acute processes Ddx: Alzheimers vs infectious vs metabolic from acidosis vs polypharmacy Plan: - Treat underlying infection - CTM mental status #Normocytic normochromic anemia likely anemia of chronic disease Noted to have Hgb 10.9 with MCV 86 following IVF. Reticulocyte count elevated 1.1 indicating intact production. Iron panel (iron 21, TIBC 172, Iron sat 12%, Unsat Iron Binding 151 (L), ferritin 307. No overt areas of bleeding, rectal exam done in ICU no blood noted. Smear shows normocytic normochromic anemia, mature neutrophilia DDx: Chronic disease, chronic anemia, medication induced Plan: - CTM CBC #NIDDM2 a1c 5.3. Home metformin 500 mg QD Plan: - SSI step 1 - Hypoglycemia protocol #Hx of Hypertension Holding blood pressure medicines in setting of hypotension and shock #NSTEMI type II, likely related to demand ischemia, resolved #Lactic acidosis, resolved #NAGMA with respiratory alkalosis, resolved #Mixed acid-base disorder Hospital management: Lines: PIV, R IJ Diet: Blenderized puree Bowel: docusate prn GI prophylaxis: None DVT prophylaxis: heparin q8h Disposition: IVF, IV abx, improvement in PO intake, initiation of GDMT monitoring BP CODE STATUS: FULL CODE Plan of care discussed with attending Dr. Lyles, and PGY-3 Dr. Zacarias. Ade Jade DO Internal Medicine PGY-1 Senior Resident Attestation: The patient seemed more lethargic today, and abdominal physical exam revealed decreased tenderness on deep palpation than yesterday, she has been reluctant to eat any meals, and this was discussed with her family members, and they agreed with getting NG tube feeds. We restarted home Alzheimer's disease and depression medications, we will continue with IV medications. The patient was negative by about 5 L as she received 1 dose of 40 mg of IV Lasix yesterday, so was repleted with 1 L of LR. PT to mobilize the patient up to chair. Possible discharge by tomorrow if the patient is stable enough to be discharged. I discussed with and supervised the quality assurance intern physician involved in the care of this patient. I personally saw and examined the patient and discussed the assessment and plan with the entire medicine team, including my attending. I agree with the assessment and plan as documented above. Sumanth Zacarias MD PGY3 Internal Medicine Attending Provider Attestation/Addendum I have discussed and was present for the essential components of the history, physical examination, diagnosis, and treatment plan with the resident. I agree with the patient's care as documented by the resident and amended herein by me. Dom Lyles DO. Although this document has been carefully reviewed, there may still be some phonetic and other typographical errors. These errors are purely grammatical due to imperfections in the software program and should not be construed in any way to compromise the substance of the patient's medical care during this visit. Patient seen and evaluated this AM. Patient much more lethargic today, there was no acute events overnight, I/os 770/6600 mL, 1 bowel movement reported. Patient is not eating, may be a component of ICU delirium, all of her psychiatric and dementia medications were halted when she came into the hospital, as such we will place an NG tube today, start tube feedings and resume her home medications to include metoprolol succinate, losartan, sertraline which has been previously started, donepezil and memantine. Patient also on Rexulti which has also been restarted. Hopefully will see improvement in the patient's mentation and alertness in the next day or so. As far as the patient's renal function is concerned, significantly improved urine output much improved, creatinine within normal limits. We will attempt to get the patient out of bed into a chair tomorrow if she is more awake and alert, then hopefully DC to SNF in 2 to 3 days pending clinical improvement.
--- NOTE | 2025-02-12 17:47 | XR_ITS ---
EXAMINATION: AP chest single view TECHNIQUE: AP portable semiupright chest single view Date and time: February 12, 2025, 1758 hours, comparison February 06, 2025 INDICATIONS: Post orogastric tube placement. FINDINGS: Significant bibasilar pneumonia with possible pleural fluid Normal heart size Moderate vascular congestion Old bilateral rib deformities Moderate osteopenia Orogastric tube in the stomach, distally versus duodenal bulb IMPRESSION: Consider retracting the orogastric tube 4 cm
--- NOTE | 2025-02-12 19:22 | XR_ITS ---
EXAMINATION: AP chest single view TECHNIQUE: AP portable semiupright chest single view Date and time: February 12, 2025, 1942 hours INDICATIONS: Status post placement of orogastric tube FINDINGS: Orogastric tube distal stomach versus duodenal bulb Normal heart size Vascular congestion Bibasilar pneumonia IMPRESSION: Orogastric tube tip distal stomach versus duodenal bulb
--- NOTE | 2025-02-12 22:05 | XR_ITS ---
EXAMINATION: AP chest single view TECHNIQUE: AP portable semiupright chest single view Date and time: February 12, 2025, 10:45 p.m., comparison February 12, 2025 1950 hours INDICATION: Reposition orogastric tube FINDINGS: Orogastric tube distal stomach. Normal heart size Bibasilar opacity consistent with pneumonia Bilateral rib deformities IMPRESSION: Orogastric tube distal stomach
[2025-02-13] VITALS (8 sets, daily range): BP systolic 119–133; BP diastolic 62–78; PULSE 58–78; RESP 14–18; TEMP 36.1–37.1; O2SAT 96–98; BMI 24.0
--- NOTE | 2025-02-13 03:41 | XR_ITS ---
EXAMINATION: AP chest single view TECHNIQUE: AP portable upright chest single view Date and time: February 13, 2025, 0414 hours, comparison February 12, 2025 10:42 p.m. INDICATIONS: Reposition orogastric tube FINDINGS: Orogastric tube satisfactory position tip in the body of the stomach Significant bilateral pneumonia. Normal heart size IMPRESSION: Orogastric tube tip body of the stomach
--- NOTE | 2025-02-13 03:43 | PC.NURSE ---
MD Farrar called to retract another 4cm from NG tube and do repeat CXR after.
[2025-02-13] MEDS: PIPER/TAZO 3.375 GM PREMIX 3.375 GM/50 ML BAG IV ×2 (05:10→13:37)
[2025-02-13] MEDS: HEPARIN SOD INJ 5000 UNIT/ML VIAL SC ×2 (05:11→21:43)
[2025-02-13 05:54] LABS: Basophils # (Auto) 0.0 Thou/mm3 (0.0-0.2); Basophils % (Auto) 1 % (0-2.5); Eosinophils # (Auto) 0.2 Thou/mm3 (0.0-0.5); Eosinophils % (Auto) 2 % (0-10); Hematocrit 30.7 % (36.0-46.0); Hemoglobin 9.5 g/dL (12.0-16.0); Immature Granulocytes Auto 0.11 Thou/mm3 (0.00-0.00); Lymphocytes # (Auto) 2.1 Thou/mm3 (1.0-4.8); Lymphocytes % (Auto) 25 % (10-50); Mean Corpuscular HGB Conc 30.9 g/dl (31.0-37.0); Mean Corpuscular Hemoglobin 25.5 pg (25.0-35.0); Mean Corpuscular Volume 83 fL (80-100); Monocytes # (Auto) 0.6 Thou/mm3 (0.0-0.8); Monocytes % (Auto) 8 % (0-12); Neutrophils # (Auto) 5.2 Thou/mm3 (1.8-7.7); Neutrophils % (Auto) 63 % (37-80); Nucleated Red Blood Cell # 0.00 Thou/mm3 (0.00-0.00); Nucleated Red Blood Cell % 0 /100 WBC (0); Platelet Count 296 Thou/mm3 (140-440); RDW Standard Deviation 43.5 fL (36.4-46.3); Red Blood Count 3.72 Miln/mm3 (4.00-5.20); White Blood Count 8.2 Thou/mm3 (3.6-11.0)
[2025-02-13 06:43] LABS: Alanine Aminotransferase 102 U/L (10-49); Albumin, Serum 2.7 gm/dL (3.4-4.8); Albumin/Globulin Ratio 1.4 (1.2-2.2); Alkaline Phosphatase 154 U/L (46-116); Anion Gap 9 (7-16); Aspartate Amino Transferase 85 U/L (0-34); BUN/Creatinine Ratio 8 Ratio (12-20); Bilirubin,Total 0.4 mg/dL (0.3-1.2); Blood Urea Nitrogen < 5 mg/dL (9-23); Calcium 8.3 mg/dL (8.3-10.6); Calcium (Corrected) 9.3 mg/dL (8.5-10.1); Carbon Dioxide 27.0 mMol/L (20.0-31.0); Chloride 104 mMol/L (98-107); Creatinine (Component) 0.6 mg/dL (0.6-1.3); Estimated Creatinine Clearance 72.0 mL/min (>60); Globulin 2.0 gm/dL (2.3-3.5); Glucose 80 mg/dL (74-106); Magnesium 1.8 mg/dL (1.6-2.6); Osmolality,Calculated 275 (275-295); Phosphorous 3.0 mg/dL (2.4-5.1); Potassium 4.3 mMol/L (3.4-5.1); Sodium 140 mMol/L (136-145); Total Protein 4.7 gm/dL (5.7-8.2); eGFR > 60 See Note
[2025-02-13] MEDS: MEMANTINE HCL 5 MG TABLET 10 MG PO (08:11)
[2025-02-13] MEDS: LOSARTAN POTASSIUM 25 MG TABLET PO (08:12)
[2025-02-13] MEDS: METOPROLOL SUCCINATE XL 25 MG TABCR PO (08:12)
[2025-02-13] MEDS: SERTRALINE HCL 25 MG TABLET PO (08:12)
[2025-02-13] MEDS: THIAMINE INJ 100 MG/ML VIAL 2 ML IVP (08:32)
--- NOTE | 2025-02-13 09:15 | ESPR_ITS ---
<Statement entered by Juan Jim MD - 02/13/25 16:08> I saw and examined patient personally and supervised PGY 1 resident, Dr. Sales with formulating a management plan. I agree with the documentation with the exceptions as listed below. Patient had NG tube placed yesterday for enteral feeding, however no recommendations were made. Dietitian was contacted today who recommended to start Glucerna tube feeds at 20 cc/h with 25 cc/h water flushes. Also started patient on thiamine 100 mg IV daily to prevent refeeding syndrome. Today is her last day of antibiotics for cholecystitis. Once patient tolerates tube feeds, anticipate discharge to SNF within next 24 to 48 hours. Plan of care discussed with Attending Dr. Trupti Jim MD PGY 2 Disclaimer: This note was dictated by speech recognition. Minor errors in welding equipment sales representative may be present due to voice recognition software. Documentation for date of: 02/13/25 Subjective Subjective Interval history: Patient seen and examined at bedside; no acute events overnight. NG tube is now placed; talked with dietary, who recommend starting glucerna 1.2 @ 20cc/hr, with 25cc/hr free water flushes. Exam Vital Signs Temp Pulse Resp BP Pulse Ox O2 Del Method 98.5 F 75 16 126/73 98 Room Air 02/13/25 03:56 02/13/25 08:12 02/13/25 03:56 02/13/25 08:12 02/13/25 03:56 02/13/25 03:56 Narrative Exam GENERAL: AOx1, no acute distress, elderly, thin and frail, lethargic HEENT: mucous membranes dry, bilateral sclera anicteric CARDIOVASCULAR: regular rate and rhythm, S1/S2 present, no murmurs appreciated PULMONARY: clear to auscultation bilaterally, no rales/rhonchi/wheezes ABDOMINAL: soft, RUQ tenderness on palpation, non-distended, bowel sounds present EXTREMITIES: no peripheral edema SKIN: warm and dry, stage II sacral ulcer present around L3/L4 NEURO: CN II-XII grossly intact, no focal deficits Objective Labs 02/14/25 05:10 02/14/25 05:10 Labs: Laboratory Results - last 24 hr 02/13/25 05:23 WBC 8.2 RBC 3.72 L Hgb 9.5 L Hct 30.7 L MCV 83 MCH 25.5 MCHC 30.9 L RDW Std Deviation 43.5 Plt Count 296 D Neut % (Auto) 63 Lymph % (Auto) 25 [place] % (Auto) 8 Eos % (Auto) 2 Baso % (Auto) 1 Neut # (Auto) 5.2 Lymph # (Auto) 2.1 [place] # (Auto) 0.6 Eos # (Auto) 0.2 Baso # (Auto) 0.0 Immature Gran # (Auto) 0.11 H Absolute Nucleated RBC 0.00 Immature Gran % 1 H Nucleated RBC % 0 Sodium 140 Potassium 4.3 D Chloride 104 Carbon Dioxide 27.0 Anion Gap 9 BUN < 5 L Creatinine 0.6 Estim Creat Clear Calc 72.0 eGFR > 60 BUN/Creatinine Ratio 8 L Glucose 80 Calculated Osmolality 275 Calcium 8.3 Corrected Calcium 9.3 Phosphorus 3.0 Magnesium 1.8 Total Bilirubin 0.4 AST 85 H ALT 102 H Alkaline Phosphatase 154 H D Total Protein 4.7 L Albumin 2.7 L Globulin 2.0 L Albumin/Globulin Ratio 1.4 ABG Interpretation ABG results: 02/06/25 02/06/25 02/06/25 18:05 20:50 22:20 VBG pH 7.27 L 7.33 7.34 VBG pCO2 42 33 L 32 L VBG pO2 42 97 H D 186 H D VBG Base Excess -7 L -8 L -7 L 02/07/25 02/07/25 04:25 07:57 VBG pH 7.38 7.42 VBG pCO2 29 L 32 L VBG pO2 137 H D 190 H D VBG Base Excess -7 L -3 Quality Measures Quality Measures sepsis Current suspected stage: sepsis Possible source: unknown Blood cultures ordered: yes Antibiotic ordered: Yes Advance care planning discussed with:: other Assessment & Plan Assessment Current Active Medications: Generic Name Dose Route Start Last Admin Trade Name Freq PRN Reason Stop Dose Admin Acetaminophen 650 mg 02/06/25 09:29 02/06/25 09:50 Acetaminophen Supp 650 Mg Supp [place] 03/08/25 09:28 650 mg Q8HR PRN Administration Fever > 100.4 Dextrose 25 ml 02/06/25 18:33 Dextrose 50%-Water Inj 50 Ml Syringe IV 03/08/25 18:32 Q15MIN PRN BG 50-70 responsive npo pt Dextrose 50 ml 02/06/25 18:33 Dextrose 50%-Water Inj 50 Ml Syringe IV 03/08/25 18:32 Q15MIN PRN BG <50 OR BG <70 & pt unresponsive Docusate Sodium 100 mg 02/13/25 08:26 Docusate Sod Liqd 100 Mg/10 Ml Udc NG 03/09/25 13:29 QDAY PRN CONSTIPATION Protocol Donepezil HCl 10 mg 02/13/25 08:22 Donepezil Hcl 5 Mg Tablet NG 03/14/25 20:59 HS PANTERA Protocol Glucagon 1 mg 02/06/25 18:33 Glucagon Inj 1 Mg Vial IM Q15MIN PRN BG <70, and no IV access Heparin Sodium (Porcine) 5,000 unit 02/13/25 21:00 Heparin Sod Inj 5000 Unit/Ml Vial SC 02/27/25 20:59 Q12HR [facility] Piperacillin/Tazobactam/Dextrose 3.375 gm in 50 mls @ 12.5 mls/hr 02/06/25 22:00 02/13/25 05:10 Zosyn IV 02/13/25 21:59 12.5 mls/hr Q8HR [facility] Administration Protocol Insulin Human Lispro 0 unit 02/06/25 18:45 02/13/25 05:26 Insulin Lispro (Admelog) 1 Unit/0.01 Ml Unit SC 03/08/25 18:44 Not Given Q6HR [facility] Protocol Losartan Potassium 25 mg 02/13/25 08:22 Losartan Potassium 25 Mg Tablet NG 03/14/25 08:59 QDAY [facility] Protocol Memantine 10 mg 02/13/25 08:23 Memantine Hcl 5 Mg Tablet NG 03/14/25 12:44 BID [facility] Protocol Metoprolol Tartrate 25 mg 02/13/25 09:00 Metoprolol Tartrate 25 Mg Tablet NG 03/13/25 11:29 DAILY [facility] Non-Formulary Medication 1 mg 02/12/25 12:45 Brexpiprazole [Rexulti] PO 03/14/25 12:44 QDAY [facility] Ondansetron HCl 4 mg 02/06/25 09:29 02/06/25 09:50 Ondansetron Inj 2 Mg/Ml Inj 2 Ml IVP 03/08/25 09:28 4 mg Q6HR PRN Administration NAUSEA OR VOMITING Sertraline HCl 25 mg 02/13/25 08:23 Sertraline Hcl 25 Mg Tablet NG 03/14/25 08:59 QDAY [facility]TER[facility] Thiamine HCl 100 mg 02/13/25 09:00 02/13/25 08:32 Thiamine Inj 100 Mg/Ml Vial 2 Ml IVP 03/15/25 08:59 100 mg QDAY PANTERA Administration Plan Vidya Rayh 74F pmhx significant for hypertension, DM2, hyperlipidemia, and Alzheimer's (minimally verbal at baseline) initially admitted to the ICU on 02/06/2025 due to distributive shock 2/2 cholecystitis vs chronic sacral ulcer, downgraded on 02/08 to floors for further management. Hospital course prolonged by insufficient intake of food and water. #Failure to thrive Per family at bedside, patient p.o. intake greatly decreased 2 to 3 days prior to admission however before this 2 to 3 days good p.o. intake. NG tube placed 02/12/25. Plan: - Grey Goods Examiner consulted for NG tube feeds; starting glucerna 1.2 @ 20cc/hr, with 25cc/hr free water flushes on 02/13/25 - Thiamine 100mg IVP daily - PT to assist with up to chair #Alzheimers #Depression On home brexiprazole, donepezil, sertraline and memantine. Patient noted to have excessive fatigue 02/11 possibly second to home medication being withheld. Plan: - Restart home meds through NG tube - Restarted brexpiprazole 1 mg daily, donepezil 10 mg nightly, memantine 10 mg twice daily, sertraline 25 mg daily #Septic shock, resolved, 2/2 acute cholecystitis #Cholecystitis #Sacral ulcer, ESBL and proteus mirabilis Presented with decreased activity, PO intake and RUQ tenderness. On admission, hypotensive, tachycardic, febrile with leukocytosis 12.9, ALT/AST and Tbili wnl and lactic acidosis 2.1. End organ damage NSTEMI type II. s/p sepsis bolus. Patient initially admitted to ICU 02/06 for septic shock requiring 3 pressors and stress dosed hydrocotrisone. Eventually weaned off and downgraded 02/08. BCx NGTD. UA neg. CXR neg for PNA. Head CT neg for acute processes. Wound Cx: ESBL and proteus mirabilis 02/06 CTAP: GB not visualized, abundant stool in rectum, moderate L renal scarring, minimal thickening of urinary bladder wall. 02/07 RUQ US fluid adjacent to GB wall, small kidneys w bilateral renal cortical thinning Ddx: infectious etiology cholecystitis vs sacral ulcer as sources, low suspicion of cardiogenic given benign echo findings Vanc (02/06-02/08) due to MRSA nares neg Plan: - Zosyn (02/06- 02/13/25) completed - Surgery consulted, recs appreciated: no need for intervention at this time - PT ordered: SNF #ARLEN, likely prerenal, resolved #Oliguria, resolved #Hyperosmolar hypovolemic hypernatremia, resolved Family endorses poor PO intake. Admission Na 153, Sosm 309, Cr 0.8. During ICU stay, patient noted to have decreased UOP ~300cc/24h, calculated to about 0.2 cc/kg/hr, qualifying KDIGO stage III guidelines of ARLEN of <0.3 cc/kg/hr. FENa 0.2 supporting prerenal dehydration vs sepsis, estimated urine osmolality 268. UOP vastly improved on 02/09. 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 Estimated EF 45-50%, Grade 1 diastolic dysfunction. Estimated RSVP 17mmHg. No mitral valve stenosis and mild regurgitation. Mild MAC. Trace tricuspid valve regurgitation. Left atrium is mildly enlarged, normal right atrium Plan: - Caution with fluid boluses - With improvement of sepsis, start metoprolol XL 25 mg QD and losartan 25 mg QD as BP tolerates - Keep K>4 and Mg>2 at all times #Acute on chronic encephalopathy Likely toxic/metabolic, improved #Hx of Chronic Dementia Has hx of Alzheimers on donepezil, memantine, brexpiprazole and sertraline. At baseline minimally verbal and AOx1. Head CT neg for acute processes Ddx: Alzheimers vs infectious vs metabolic from acidosis vs polypharmacy Plan: - Treat underlying infection - CTM mental status #Normocytic normochromic anemia likely anemia of chronic disease Noted to have Hgb 10.9 with MCV 86 following IVF. Reticulocyte count elevated 1.1 indicating intact production. Iron panel (iron 21, TIBC 172, Iron sat 12%, Unsat Iron Binding 151 (L), ferritin 307. No overt areas of bleeding, rectal exam done in ICU no blood noted. Smear shows normocytic normochromic anemia, mature neutrophilia DDx: Chronic disease, chronic anemia, medication induced Plan: - CTM CBC #NIDDM2 a1c 5.3. Home metformin 500 mg QD Plan: - SSI step 1 - Hypoglycemia protocol #Hx of Hypertension Holding blood pressure medicines in setting of hypotension and shock #NSTEMI type II, likely related to demand ischemia, resolved #Lactic acidosis, resolved #NAGMA with respiratory alkalosis, resolved #Mixed acid-base disorder Hospital management: Lines: PIV, R IJ Diet: Glucerna via NG tube with free water flushes Bowel: docusate prn GI prophylaxis: None DVT prophylaxis: heparin q12h Disposition: IVF, IV abx, improvement in PO intake, initiation of GDMT monitoring BP CODE STATUS: FULL CODE This case was discussed with my attending physician, Dr. Lyles, and senior resident, Dr. Jim. Jan Sales, PGY1 Attending Provider Attestation/Addendum I have discussed and was present for the essential components of the history, physical examination, diagnosis, and treatment plan with the resident. I agree with the patient's care as documented by the resident and amended herein by me. Dom Lyles DO. Although this document has been carefully reviewed, there may still be some phonetic and other typographical errors. These errors are purely grammatical due to imperfections in the software program and should not be construed in any way to compromise the substance of the patient's medical care during this visit.
--- NOTE | 2025-02-13 15:30 | PC.NURSE ---
NG tube feeding started at 1530.
[2025-02-13] MEDS: DONEPEZIL HCL 5 MG TABLET 10 MG NG (21:43)
[2025-02-13] MEDS: MEMANTINE HCL 5 MG TABLET 10 MG NG (21:43)
[2025-02-14] VITALS (8 sets, daily range): BP systolic 96–123; BP diastolic 55–72; PULSE 61–89; RESP 12–18; TEMP 36–36.3; O2SAT 96–98; BMI 24.0
[2025-02-14 06:29] LABS: Basophils # (Auto) 0.0 Thou/mm3 (0.0-0.2); Basophils % (Auto) 0 % (0-2.5); Eosinophils # (Auto) 0.1 Thou/mm3 (0.0-0.5); Eosinophils % (Auto) 2 % (0-10); Hematocrit 35.6 % (36.0-46.0); Hemoglobin 11.4 g/dL (12.0-16.0); Immature Granulocytes Auto 0.08 Thou/mm3 (0.00-0.00); Lymphocytes # (Auto) 1.4 Thou/mm3 (1.0-4.8); Lymphocytes % (Auto) 22 % (10-50); Mean Corpuscular HGB Conc 32.0 g/dl (31.0-37.0); Mean Corpuscular Hemoglobin 26.1 pg (25.0-35.0); Mean Corpuscular Volume 82 fL (80-100); Monocytes # (Auto) 0.4 Thou/mm3 (0.0-0.8); Monocytes % (Auto) 7 % (0-12); Neutrophils # (Auto) 4.4 Thou/mm3 (1.8-7.7); Neutrophils % (Auto) 68 % (37-80); Nucleated Red Blood Cell # 0.00 Thou/mm3 (0.00-0.00); Nucleated Red Blood Cell % 0 /100 WBC (0); Platelet Count 183 Thou/mm3 (140-440); RDW Standard Deviation 43.1 fL (36.4-46.3); Red Blood Count 4.36 Miln/mm3 (4.00-5.20); White Blood Count 6.5 Thou/mm3 (3.6-11.0)
[2025-02-14 07:16] LABS: Alanine Aminotransferase 106 U/L (10-49); Albumin, Serum 3.3 gm/dL (3.4-4.8); Albumin/Globulin Ratio 1.3 (1.2-2.2); Alkaline Phosphatase 180 U/L (46-116); Anion Gap 9 (7-16); Aspartate Amino Transferase 83 U/L (0-34); BUN/Creatinine Ratio 7 Ratio (12-20); Bilirubin,Total 0.4 mg/dL (0.3-1.2); Blood Urea Nitrogen 5 mg/dL (9-23); Calcium 9.1 mg/dL (8.3-10.6); Calcium (Corrected) 9.7 mg/dL (8.5-10.1); Carbon Dioxide 26.7 mMol/L (20.0-31.0); Chloride 103 mMol/L (98-107); Creatinine (Component) 0.7 mg/dL (0.6-1.3); Estimated Creatinine Clearance 61.7 mL/min (>60); Globulin 2.6 gm/dL (2.3-3.5); Glucose 95 mg/dL (74-106); Magnesium 1.8 mg/dL (1.6-2.6); Osmolality,Calculated 274 (275-295); Phosphorous 3.4 mg/dL (2.4-5.1); Potassium 4.5 mMol/L (3.4-5.1); Sodium 139 mMol/L (136-145); Total Protein 5.9 gm/dL (5.7-8.2); eGFR > 60 See Note
[2025-02-14] MEDS: MEMANTINE HCL 5 MG TABLET 10 MG NG ×2 (08:07→21:36)
[2025-02-14] MEDS: METOPROLOL TARTRATE 25 MG TABLET NG (08:07)
[2025-02-14] MEDS: SERTRALINE HCL 25 MG TABLET NG (08:07)
[2025-02-14] MEDS: HEPARIN SOD INJ 5000 UNIT/ML VIAL SC ×2 (08:08→21:37)
[2025-02-14] MEDS: THIAMINE INJ 100 MG/ML VIAL 2 ML IVP (08:08)
[2025-02-14] MEDS: LOSARTAN POTASSIUM 25 MG TABLET NG (08:08)
--- NOTE | 2025-02-14 08:48 | PC.DIETICIAN ---
Nutrition prescription Glucerna 1.2 at 20 ml/hr via NG tube by pump. Advance 10 ml every 8 hrs to goal rate of 55 ml/hr x 24 hrs. If no IV fluids, water flushes of 25 ml/hr (or per MD). Provides: 1584 kcal, 79 g prot, 1062 ml free water, 1320 ml total volume.
--- NOTE | 2025-02-14 09:37 | PC.NURSE ---
NG feeding rate increased to 30 ml/hr at this time. Patient has been tolerating feedings.
--- NOTE | 2025-02-14 09:49 | PD.RESPRO ---
Documentation for date of: 02/14/25 Subjective Subjective Interval history: No acute overnight events. Patient seen and examined at bedside. Patient is awake on AM examination, slight grimace to deep palpation of right upper quadrant which is improved. VSS. Plan to continue NG tube with dietitian recommendations of goal feeds to be 55 cc/hour, eventually anticipate restarting PO intake when mentation improves. Restarted Zosyn for cholecystitis for total of 10-day course. Exam Vital Signs Temp Pulse Resp BP Pulse Ox O2 Del Method 97.3 F 68 17 122/72 98 Room Air 02/14/25 08:00 02/14/25 08:08 02/14/25 08:00 02/14/25 08:08 02/14/25 08:00 02/14/25 04:00 Narrative Exam GENERAL: AOx1, no acute distress, elderly, thin and frail HEENT: mucous membranes dry, bilateral sclera anicteric CARDIOVASCULAR: regular rate and rhythm, S1/S2 present, no murmurs appreciated PULMONARY: clear to auscultation bilaterally, no rales/rhonchi/wheezes ABDOMINAL: soft, mild RUQ tenderness on deep palpation, non-distended, bowel sounds present EXTREMITIES: no peripheral edema SKIN: warm and dry, stage II sacral ulcer present around L3/L4, open and clean NEURO: CN II-XII grossly intact, no focal deficits Objective Labs 02/14/25 05:10 02/14/25 05:10 Labs: Laboratory Results - last 24 hr 02/14/25 05:10 WBC 6.5 RBC 4.36 Hgb 11.4 L Hct 35.6 L MCV 82 MCH 26.1 MCHC 32.0 RDW Std Deviation 43.1 Plt Count 183 D Neut % (Auto) 68 Lymph % (Auto) 22 [place] % (Auto) 7 Eos % (Auto) 2 Baso % (Auto) 0 Neut # (Auto) 4.4 Lymph # (Auto) 1.4 [place] # (Auto) 0.4 Eos # (Auto) 0.1 Baso # (Auto) 0.0 Immature Gran # (Auto) 0.08 H Absolute Nucleated RBC 0.00 Immature Gran % 1 H Nucleated RBC % 0 Sodium 139 Potassium 4.5 Chloride 103 Carbon Dioxide 26.7 Anion Gap 9 BUN 5 L Creatinine 0.7 Estim Creat Clear Calc 61.7 eGFR > 60 BUN/Creatinine Ratio 7 L Glucose 95 Calculated Osmolality 274 L Calcium 9.1 Corrected Calcium 9.7 Phosphorus 3.4 Magnesium 1.8 Total Bilirubin 0.4 AST 83 H ALT 106 H Alkaline Phosphatase 180 H D Total Protein 5.9 Albumin 3.3 L D Globulin 2.6 Albumin/Globulin Ratio 1.3 ABG Interpretation ABG results: 02/06/25 02/06/25 02/06/25 18:05 20:50 22:20 VBG pH 7.27 L 7.33 7.34 VBG pCO2 42 33 L 32 L VBG pO2 42 97 H D 186 H D VBG Base Excess -7 L -8 L -7 L 02/07/25 02/07/25 04:25 07:57 VBG pH 7.38 7.42 VBG pCO2 29 L 32 L VBG pO2 137 H D 190 H D VBG Base Excess -7 L -3 Quality Measures Quality Measures sepsis Current suspected stage: sepsis (on abx) Possible source: unknown Blood cultures ordered: yes Antibiotic ordered: Yes Advance care planning discussed with:: patient Assessment & Plan Assessment Current Active Medications: Generic Name Dose Route Start Last Admin Trade Name Freq PRN Reason Stop Dose Admin Acetaminophen 650 mg 02/06/25 09:29 02/06/25 09:50 Acetaminophen Supp 650 Mg Supp [place] 03/08/25 09:28 650 mg Q8HR PRN Administration Fever > 100.4 Brexpiprazole ( 0 ea 02/13/25 14:45 02/14/25 08:22 Rexulti) 1 Mg Tablet PO 03/15/25 14:44 1 tablet QDAY PANTERA Administration Dextrose 25 ml 02/06/25 18:33 Dextrose 50%-Water Inj 50 Ml Syringe IV 03/08/25 18:32 Q15MIN PRN BG 50-70 responsive npo pt Dextrose 50 ml 02/06/25 18:33 Dextrose 50%-Water Inj 50 Ml Syringe IV 03/08/25 18:32 Q15MIN PRN BG <50 OR BG <70 & pt unresponsive Docusate Sodium 100 mg 02/13/25 08:26 Docusate Sod Liqd 100 Mg/10 Ml Udc NG 03/09/25 13:29 QDAY PRN CONSTIPATION Protocol Donepezil HCl 10 mg 02/13/25 08:22 02/13/25 21:43 Donepezil Hcl 5 Mg Tablet NG 03/14/25 20:59 10 mg HS PANTERA Administration Protocol Glucagon 1 mg 02/06/25 18:33 Glucagon Inj 1 Mg Vial IM Q15MIN PRN BG <70, and no IV access Heparin Sodium (Porcine) 5,000 unit 02/13/25 21:00 02/14/25 08:08 Heparin Sod Inj 5000 Unit/Ml Vial SC 02/27/25 20:59 5,000 unit Q12HR [facility] Administration Insulin Human Lispro 0 unit 02/14/25 07:45 Insulin Lispro (Admelog) 1 Unit/0.01 Ml Unit SC 03/16/25 07:29 AC PANTERA Protocol Losartan Potassium 25 mg 02/13/25 08:22 02/14/25 08:08 Losartan Potassium 25 Mg Tablet NG 03/14/25 08:59 25 mg QDAY PANTERA Administration Protocol Memantine 10 mg 02/13/25 08:23 02/14/25 08:07 Memantine Hcl 5 Mg Tablet NG 03/14/25 12:44 10 mg BID PANTERA Administration Protocol Metoprolol Tartrate 25 mg 02/13/25 09:00 02/14/25 08:07 Metoprolol Tartrate 25 Mg Tablet NG 03/13/25 11:29 25 mg DAILY PANTERA Administration Ondansetron HCl 4 mg 02/06/25 09:29 02/06/25 09:50 Ondansetron Inj 2 Mg/Ml Inj 2 Ml IVP 03/08/25 09:28 4 mg Q6HR PRN Administration NAUSEA OR VOMITING Sertraline HCl 25 mg 02/13/25 08:23 02/14/25 08:07 Sertraline Hcl 25 Mg Tablet NG 03/14/25 08:59 25 mg QDAY PANTERA Administration Thiamine HCl 100 mg 02/13/25 09:00 02/14/25 08:08 Thiamine Inj 100 Mg/Ml Vial 2 Ml IVP 03/15/25 08:59 100 mg QDAY PANTERA Administration Plan Jeetwa Atieh 74F pmhx significant for hypertension, DM2, hyperlipidemia, and Alzheimer's (minimally verbal at baseline) initially admitted to the ICU on 02/06/2025 due to distributive shock 2/2 cholecystitis vs chronic sacral ulcer, downgraded on 02/08 to floors for further management. Hospital course prolonged by failure to thrive. #Failure to thrive Per family at bedside, patient p.o. intake chronically decreasing however greatly decreased 2 to 3 days prior to admission. Likely 2/2 dementia. During admission, patient noticed to pocket food and does not swallow. Possible dementia contributing. ASSISTANT PROFESSOR OF SOCIOLOGY 02/07: recommend blendurized puree. NG tube placed 02/12/25 and feeds started 02/13. Plan: - Stapler Machine consulted for NG tube feeds: starting glucerna 1.2 at 20 mL/hr, advance 10 mL q8h with goal of 55 cc/hr, with 25cc/hr free water flushes - Thiamine 100mg IVP daily - PT to assist with up to chair #Alzheimers #Depression On home brexiprazole, donepezil, sertraline and memantine. Patient noted to have excessive fatigue 02/11 possibly second to home medication being withheld. Plan: - Restart home meds through NG tube - Restarted brexpiprazole 1 mg daily, donepezil 10 mg nightly, memantine 10 mg twice daily, sertraline 25 mg daily #Septic shock, resolved, 2/2 acute cholecystitis #Cholecystitis #Sacral ulcer, ESBL and proteus mirabilis Presented with decreased activity, PO intake and RUQ tenderness. On admission, hypotensive, tachycardic, febrile with leukocytosis 12.9, ALT/AST and Tbili wnl and lactic acidosis 2.1. End organ damage NSTEMI type II. s/p sepsis bolus. Patient initially admitted to ICU 02/06 for septic shock requiring 3 pressors and stress dosed hydrocotrisone. Eventually weaned off and downgraded 02/08. BCx NGTD. UA neg. CXR neg for PNA. Head CT neg for acute processes. Wound Cx: ESBL and proteus mirabilis 02/06 CTAP: GB not visualized, abundant stool in rectum, moderate L renal scarring, minimal thickening of urinary bladder wall. 02/07 RUQ US fluid adjacent to GB wall, small kidneys w bilateral renal cortical thinning Ddx: infectious etiology cholecystitis vs sacral ulcer as sources, low suspicion of cardiogenic given benign echo findings Vanc (02/06-02/08) due to MRSA nares neg Plan: - Zosyn (02/06- ), anticipate end 02/15 - Surgery consulted, recs appreciated: no need for intervention at this time - PT ordered: SNF #ARLEN, likely prerenal, resolved #Oliguria, resolved #Hyperosmolar hypovolemic hypernatremia, resolved Family endorses poor PO intake. Admission Na 153, Sosm 309, Cr 0.8. During ICU stay, patient noted to have decreased UOP ~300cc/24h, calculated to about 0.2 cc/kg/hr, qualifying KDIGO stage III guidelines of ARLEN of <0.3 cc/kg/hr. FENa 0.2 supporting prerenal dehydration vs sepsis, estimated urine osmolality 268. UOP vastly improved on 02/09. 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 Estimated EF 45-50%, Grade 1 diastolic dysfunction. Estimated RSVP 17mmHg. No mitral valve stenosis and mild regurgitation. Mild MAC. Trace tricuspid valve regurgitation. Left atrium is mildly enlarged, normal right atrium Plan: - Caution with fluid boluses - With improvement of sepsis, start metoprolol XL 25 mg QD and losartan 25 mg QD as BP tolerates - Keep K>4 and Mg>2 at all times #Acute on chronic encephalopathy Likely toxic/metabolic, improved #Hx of Chronic Dementia Has hx of Alzheimers on donepezil, memantine, brexpiprazole and sertraline. At baseline minimally verbal and AOx1. Head CT neg for acute processes Ddx: Alzheimers vs infectious vs metabolic from acidosis vs polypharmacy Plan: - Treat underlying infection - CTM mental status #Normocytic normochromic anemia likely anemia of chronic disease Noted to have Hgb 10.9 with MCV 86 following IVF. Reticulocyte count elevated 1.1 indicating intact production. Iron panel (iron 21, TIBC 172, Iron sat 12%, Unsat Iron Binding 151 (L), ferritin 307. No overt areas of bleeding, rectal exam done in ICU no blood noted. Smear shows normocytic normochromic anemia, mature neutrophilia DDx: Chronic disease, chronic anemia, medication induced Plan: - CTM CBC #NIDDM2 a1c 5.3. Home metformin 500 mg QD Plan: - SSI step 1 - Hypoglycemia protocol #Hx of Hypertension Holding blood pressure medicines in setting of hypotension and shock #NSTEMI type II, likely related to demand ischemia, resolved #Lactic acidosis, resolved #NAGMA with respiratory alkalosis, resolved #Mixed acid-base disorder Hospital management: Lines: PIV Diet: Glucerna via NG tube with free water flushes Bowel: docusate prn GI prophylaxis: None DVT prophylaxis: heparin q12h Disposition: IVF, NG tube, inc feeds CODE STATUS: FULL CODE This case was discussed with my attending physician, Dr. Lyles, and senior resident, Dr. Zacarias. Ade Jade DO Internal Medicine PGY-1 Senior Resident Attestation: The patient was seen more responsive this morning. Her abdominal exam did not initiate any tenderness. Dietary recommended goal feed of 55 cc/h. We will continue with Zosyn for total of 10 days for acute cholecystitis. The family is 8 to decide on PEG tube placement, likely by tomorrow. I discussed with and supervised the sport internship physician involved in the care of this patient. I personally saw and examined the patient and discussed the assessment and plan with the entire medicine team, including my attending. I agree with the assessment and plan as documented above. Sumanth Zacarias MD PGY3 Internal Medicine Attending Provider Attestation/Addendum I have discussed and was present for the essential components of the history, physical examination, diagnosis, and treatment plan with the resident. I agree with the patient's care as documented by the resident and amended herein by me. Dom Lyles DO. Although this document has been carefully reviewed, there may still be some phonetic and other typographical errors. These errors are purely grammatical due to imperfections in the software program and should not be construed in any way to compromise the substance of the patient's medical care during this visit.
--- NOTE | 2025-02-14 10:37 | PC.SS ---
Follow up note: Reach tube feeding goals. SS confirmed with Claudia from [facility] they are still accepting pt.
[2025-02-14] MEDS: PIPER/TAZO 3.375 GM PREMIX 3.375 GM/50 ML BAG IV ×2 (16:52→21:37)
--- NOTE | 2025-02-14 19:06 | PC.NURSE ---
Called pharmacy for santyl ointment. Ivanna said they're going to bring it up.
[2025-02-14] MEDS: COLLAGENASE OINT 30 GM TUBE TOP (21:36)
[2025-02-14] MEDS: DONEPEZIL HCL 5 MG TABLET 10 MG NG (21:37)
[2025-02-15] VITALS (10 sets, daily range): BP systolic 95–112; BP diastolic 50–78; PULSE 61–78; RESP 10–20; TEMP 36.1–36.5; O2SAT 96–98; BMI 21.2
[2025-02-15] MEDS: DOCUSATE SOD LIQD 100 MG/10 ML UDC NG (05:14)
[2025-02-15] MEDS: PIPER/TAZO 3.375 GM PREMIX 3.375 GM/50 ML BAG IV ×3 (05:14→22:16)
[2025-02-15 05:31] LABS: Basophils # (Auto) 0.0 Thou/mm3 (0.0-0.2); Basophils % (Auto) 0 % (0-2.5); Eosinophils # (Auto) 0.1 Thou/mm3 (0.0-0.5); Eosinophils % (Auto) 1 % (0-10); Hematocrit 33.9 % (36.0-46.0); Hemoglobin 10.5 g/dL (12.0-16.0); Immature Granulocytes Auto 0.07 Thou/mm3 (0.00-0.00); Lymphocytes # (Auto) 1.5 Thou/mm3 (1.0-4.8); Lymphocytes % (Auto) 23 % (10-50); Mean Corpuscular HGB Conc 31.0 g/dl (31.0-37.0); Mean Corpuscular Hemoglobin 25.5 pg (25.0-35.0); Mean Corpuscular Volume 82 fL (80-100); Monocytes # (Auto) 0.5 Thou/mm3 (0.0-0.8); Monocytes % (Auto) 7 % (0-12); Neutrophils # (Auto) 4.2 Thou/mm3 (1.8-7.7); Neutrophils % (Auto) 67 % (37-80); Nucleated Red Blood Cell # 0.00 Thou/mm3 (0.00-0.00); Nucleated Red Blood Cell % 0 /100 WBC (0); Platelet Count 187 Thou/mm3 (140-440); RDW Standard Deviation 44.0 fL (36.4-46.3); Red Blood Count 4.12 Miln/mm3 (4.00-5.20); White Blood Count 6.3 Thou/mm3 (3.6-11.0)
[2025-02-15 06:01] LABS: Alanine Aminotransferase 80 U/L (10-49); Albumin, Serum 3.1 gm/dL (3.4-4.8); Albumin/Globulin Ratio 1.2 (1.2-2.2); Alkaline Phosphatase 161 U/L (46-116); Anion Gap 9 (7-16); Aspartate Amino Transferase 54 U/L (0-34); BUN/Creatinine Ratio 13 Ratio (12-20); Bilirubin,Total 0.3 mg/dL (0.3-1.2); Blood Urea Nitrogen 8 mg/dL (9-23); Calcium 9.2 mg/dL (8.3-10.6); Calcium (Corrected) 9.9 mg/dL (8.5-10.1); Carbon Dioxide 27.3 mMol/L (20.0-31.0); Chloride 104 mMol/L (98-107); Creatinine (Component) 0.6 mg/dL (0.6-1.3); Estimated Creatinine Clearance 72.0 mL/min (>60); Globulin 2.5 gm/dL (2.3-3.5); Glucose 113 mg/dL (74-106); Magnesium 1.8 mg/dL (1.6-2.6); Osmolality,Calculated 278 (275-295); Phosphorous 4.2 mg/dL (2.4-5.1); Potassium 4.4 mMol/L (3.4-5.1); Sodium 140 mMol/L (136-145); Total Protein 5.6 gm/dL (5.7-8.2); eGFR > 60 See Note
--- NOTE | 2025-02-15 10:00 | PC.NURSE ---
Pt tube feeding rate increased to 55ml/hr at 1000. Pt tolerating tube feeding with no residual, no vomiting.
[2025-02-15] MEDS: THIAMINE INJ 100 MG/ML VIAL 2 ML IVP (10:02)
[2025-02-15] MEDS: SERTRALINE HCL 25 MG TABLET NG (10:03)
[2025-02-15] MEDS: MEMANTINE HCL 5 MG TABLET 10 MG NG ×2 (10:03→22:04)
[2025-02-15] MEDS: LOSARTAN POTASSIUM 25 MG TABLET NG (10:03)
[2025-02-15] MEDS: METOPROLOL TARTRATE 25 MG TABLET NG (10:04)
[2025-02-15] MEDS: HEPARIN SOD INJ 5000 UNIT/ML VIAL SC ×2 (10:05→22:12)
--- NOTE | 2025-02-15 14:24 | PD.RESCONSUL ---
HPI Data of Consult Requesting Physician: Michael Lyles DO Admitting Provider: Felicitas Bella MD Attending Provider: Michael Lyles DO Primary Care Provider: Miryam Crisostomo PA-C Consult Narrative History of present illness: 74-year-old female with a history of HTN, T2DM, HLD, and Alzheimer's (nonverbal at baseline) was brought to the ED by her daughter for decreased activity and oral intake. She was admitted to the ICU on 02/06/2025 due to distributive shock, likely secondary to cholecystitis or chronic sacral ulcer, and downgraded to the floor on 02/08 for continued management. Her hospital course was complicated by failure to thrive. Family reports a chronic decline in her oral intake, which significantly worsened over the 2?3 days prior to admission, likely due to dementia. Past medical history: As stated above. GI consulted for placement of PEG tube. cc:: cc: Michael Lyles DO Review of Systems Review of Systems ROS Unobtainable: unobtainable due to medical condition Exam Vital Signs Temp Pulse Resp BP Pulse Ox O2 Del Method 97.7 F 63 17 100/55 L 96 Room Air 02/15/25 12:00 02/15/25 12:00 02/15/25 12:00 02/15/25 12:00 02/15/25 12:00 02/15/25 12:00 Narrative Exam GENERAL: AOx1, no acute distress, elderly, thin and frail HEENT: mucous membranes dry, bilateral sclera anicteric CARDIOVASCULAR: regular rate and rhythm, S1/S2 present, no murmurs appreciated PULMONARY: clear to auscultation bilaterally, no rales/rhonchi/wheezes ABDOMINAL: soft, mild RUQ tenderness on deep palpation, non-distended, bowel sounds present EXTREMITIES: no peripheral edema SKIN: warm and dry, stage II sacral ulcer present around L3/L4, open and clean NEURO: CN II-XII grossly intact, no focal deficits Results Labs 02/15/25 05:00 02/15/25 05:00 Labs: Short CBC 02/15/25 Range/Units 05:00 WBC 6.3 (3.6-11.0) Thou/mm3 Hgb 10.5 L (12.0-16.0) g/dL Hct 33.9 L (36.0-46.0) % Plt Count 187 (140-440) Thou/mm3 BMP 02/15/25 05:00 Sodium 140 Potassium 4.4 Chloride 104 Carbon Dioxide 27.3 BUN 8 L Creatinine 0.6 Glucose 113 H Calcium 9.2 Liver Function 02/15/25 Range/Units 05:00 Total Bilirubin 0.3 (0.3-1.2) mg/dL AST 54 H (0-34) U/L ALT 80 H (10-49) U/L Alkaline Phosphatase 161 H (46-116) U/L Albumin 3.1 L (3.4-4.8) gm/dL ABG Interpretation ABG results: 02/06/25 02/06/25 02/06/25 18:05 20:50 22:20 VBG pH 7.27 L 7.33 7.34 VBG pCO2 42 33 L 32 L VBG pO2 42 97 H D 186 H D VBG Base Excess -7 L -8 L -7 L 02/07/25 02/07/25 04:25 07:57 VBG pH 7.38 7.42 VBG pCO2 29 L 32 L VBG pO2 137 H D 190 H D VBG Base Excess -7 L -3 Quality Measures Quality Measures sepsis Current suspected stage: ruled out Possible source: unknown Blood cultures ordered: yes Antibiotic ordered: No Advance care planning discussed with:: legal surragate Medications Home Medications and Allergies Home Medications ?Medication ?Instructions ?Recorded ?Confirmed ?Type atorvastatin 80 mg tablet 80 mg PO QDAY 12/24/22 02/08/25 History lisinopril 20 mg tablet 10 mg PO QDAY 12/24/22 02/08/25 History metformin 500 mg tablet 500 mg PO QDAY 12/24/22 02/08/25 History brexpiprazole 1 mg tablet (Rexulti) 1 mg PO QDAY 02/08/25 02/08/25 History donepezil 10 mg tablet 10 mg PO .qhs 02/08/25 02/08/25 History memantine 10 mg tablet 10 mg PO BID 02/08/25 02/08/25 History sertraline 25 mg tablet 25 mg PO QDAY 02/08/25 02/08/25 History Allergies Allergy/AdvReac Type Severity Reaction Status Date / Time No Known Allergies Allergy Verified 02/06/25 09:26 Visit Medications Acetaminophen (Acetaminophen Supp 650 Mg Supp) 650 mg DE Q8HR PRN PRN Reason: Fever > 100.4 Stop: 03/08/25 09:28 Last Admin: 02/06/25 09:50 Dose: 650 mg Collagenase (Collagenase Oint 30 Gm Tube) 0 gm TOP [facility] Stop: 03/16/25 20:59 Last Admin: 02/14/25 21:36 Dose: 1 applicatio Brexpiprazole ( (Rexulti) 1 Mg Tablet) 0 ea PO QDAY [facility] Stop: 03/15/25 14:44 Last Admin: 02/15/25 10:03 Dose: 1 tablet Dextrose (Dextrose 50%-Water Inj 50 Ml Syringe) 25 ml IV Q15MIN PRN PRN Reason: BG 50-70 responsive npo pt Stop: 03/08/25 18:32 Dextrose (Dextrose 50%-Water Inj 50 Ml Syringe) 50 ml IV Q15MIN PRN PRN Reason: BG <50 OR BG <70 & pt unresponsive Stop: 03/08/25 18:32 Docusate Sodium (Docusate Sod Liqd 100 Mg/10 Ml Udc) 100 mg NG QDAY PRN; Protocol PRN Reason: CONSTIPATION Stop: 03/09/25 13:29 Last Admin: 02/15/25 05:14 Dose: 100 mg Donepezil HCl (Donepezil Hcl 5 Mg Tablet) 10 mg NG [facility]; Protocol Stop: 03/14/25 20:59 Last Admin: 02/14/25 21:37 Dose: 10 mg Glucagon (Glucagon Inj 1 Mg Vial) 1 mg IM Q15MIN PRN PRN Reason: BG <70, and no IV access Heparin Sodium (Porcine) (Heparin Sod Inj 5000 Unit/Ml Vial) 5,000 unit SC Q12HR [facility] Stop: 02/27/25 20:59 Last Admin: 02/15/25 10:05 Dose: 5,000 unit Piperacillin/Tazobactam/Dextrose (Zosyn) 3.375 gm in 50 mls @ 12.5 mls/hr IV Q8HR [facility]; Protocol Stop: 02/21/25 14:15 Last Admin: 02/15/25 13:23 Dose: 12.5 mls/hr Insulin Human Lispro (Insulin Lispro (Admelog) 1 Unit/0.01 Ml Unit) 0 unit SC Q6H [facility]; Protocol Stop: 03/17/25 00:00 Last Admin: 02/15/25 12:20 Dose: Not Given Losartan Potassium (Losartan Potassium 25 Mg Tablet) 25 mg NG QDAY [facility]; Protocol Stop: 03/14/25 08:59 Last Admin: 02/15/25 10:03 Dose: 25 mg Memantine (Memantine Hcl 5 Mg Tablet) 10 mg NG BID [facility]; Protocol Stop: 03/14/25 12:44 Last Admin: 02/15/25 10:03 Dose: 10 mg Metoprolol Tartrate (Metoprolol Tartrate 25 Mg Tablet) 25 mg NG DAILY [facility] Stop: 03/13/25 11:29 Last Admin: 02/15/25 10:04 Dose: 25 mg Ondansetron HCl (Ondansetron Inj 2 Mg/Ml Inj 2 Ml) 4 mg IVP Q6HR PRN PRN Reason: NAUSEA OR VOMITING Stop: 03/08/25 09:28 Last Admin: 02/06/25 09:50 Dose: 4 mg Sertraline HCl (Sertraline Hcl 25 Mg Tablet) 25 mg NG QDAY [facility] Stop: 03/14/25 08:59 Last Admin: 02/15/25 10:03 Dose: 25 mg Thiamine HCl (Thiamine Inj 100 Mg/Ml Vial 2 Ml) 100 mg IVP QDAY [facility] Stop: 03/15/25 08:59 Last Admin: 02/15/25 10:02 Dose: 100 mg Discontinued Medications Docusate Sodium (Docusate Sod 100 Mg Capsule) 100 mg PO QDAY PRN; Protocol PRN Reason: CONSTIPATION Stop: 03/09/25 13:29 Donepezil HCl (Donepezil Hcl 5 Mg Tablet) 10 mg PO HS [facility] Stop: 03/14/25 20:59 Last Admin: 02/13/25 00:12 Dose: Not Given Furosemide (Furosemide Inj 10 Mg/Ml 4ml Vial) 40 mg IVP X1 ONE Stop: 02/11/25 08:23 Last Admin: 02/11/25 08:29 Dose: 40 mg Heparin Sodium (Porcine) (Heparin Sod Inj 5000 Unit/Ml Vial) 5,000 unit SC Q8HR [facility] Stop: 02/20/25 16:44 Last Admin: 02/13/25 05:11 Dose: 5,000 unit Hydrocortisone Sodium Succinate (Hydrocortisone Sod Succ Inj 100 Mg 2 Ml Vial) 50 mg IV Q6HR [facility] Stop: 03/09/25 00:00 Last Admin: 02/08/25 06:14 Dose: 50 mg Hydrocortisone Sodium Succinate (Hydrocortisone Sod Succ Inj 100 Mg 2 Ml Vial) 100 mg IV X1 ONE Stop: 02/06/25 16:42 Last Admin: 02/06/25 16:59 Dose: 100 mg Sodium Chloride (Ns) 1,572 mls @ 1,572 mls/hr 30 ml/kg infuse over 60 min (1572 ml) IV .Q1H [facility] Stop: 02/06/25 10:28 Last Infusion: 02/06/25 10:42 Dose: Infused Piperacillin/Tazobactam/Dextrose (Zosyn) 3.375 gm in 50 mls @ 100 mls/hr IV X1 ONE Stop: 02/06/25 09:58 Last Infusion: 02/06/25 10:21 Dose: Infused Vancomycin HCl 1,000 mg/ (Sodium Chloride) 250 mls @ 250 mls/hr IV X1 ONE Stop: 02/06/25 10:28 Last Admin: 02/06/25 10:02 Dose: Not Given Vancomycin/Sodium Chloride (Vancomycin/Ns 1 Gm Ivpb) 200 mls @ 120 mls/hr IV X1 ONE Stop: 02/06/25 11:24 Last Infusion: 02/06/25 12:09 Dose: Infused Sodium Chloride (Ns) 500 mls @ 999 mls/hr IV .Q31M ONE Stop: 02/06/25 15:55 Last Infusion: 02/06/25 16:17 Dose: Infused Norepinephrine Bitartrate (Levophed In Ns 16mg/250ml) 16 mg in 250 mls @ 2.339 mls/hr IV .Q24H PRN; Protocol PRN Reason: PER protocol Stop: 03/08/25 15:36 Norepinephrine Bitartrate (Levophed In Ns 16mg/250ml) 16 mg in 250 mls @ 2.339 mls/hr IV .Q24H PRN; Protocol PRN Reason: PER protocol Stop: 03/08/25 15:40 Norepinephrine/Dextrose (Levophed In D5w 8mg/250ml) 8 mg in 250 mls @ 4.678 mls/hr IV .Q24H PRN; Protocol PRN Reason: PER PROTOCOL Stop: 03/08/25 15:44 Last Titration: 02/08/25 06:00 Dose: 0.06 mcg/kg/min, 5.613 mls/hr Sodium Chloride (Ns) 1,000 mls @ 999 mls/hr IV .Q1H1M ONE Stop: 02/06/25 17:27 Last Infusion: 02/06/25 17:32 Dose: Infused Piperacillin/Tazobactam/Dextrose (Zosyn) 3.375 gm in 50 mls @ 12.5 mls/hr IV Q8HR [facility]; Protocol Stop: 02/13/25 21:59 Last Admin: 02/13/25 13:37 Dose: 12.5 mls/hr Vasopressin/Sodium Chloride (Vasostrict/Ns Ivpb) 20 unit in 100 mls @ 9 mls/hr IV .Q11H7M PRN; Protocol PRN Reason: PER PROTOCOL Stop: 03/08/25 16:44 Last Titration: 02/08/25 05:00 Dose: 0 unit/min, 0 mls/hr Potassium Chloride (Kcl Ivpb) 10 meq in 100 mls @ 100 mls/hr IV Q1H [facility] Stop: 02/06/25 22:26 Last Admin: 02/06/25 22:30 Dose: 100 mls/hr Dobutamine HCl/Dextrose (Dobutrex/D5w Ivpb) 500 mg in 250 mls @ 3.742 mls/hr IV .Q24H [facility] Stop: 03/08/25 18:34 Last Infusion: 02/06/25 19:03 Dose: 2.5 mcg/kg/min, 3.742 mls/hr Magnesium Sulfate (Magnesium Sulfate Ivpb) 2 gm in 50 mls @ 25 mls/hr IV X1 ONE Stop: 02/06/25 22:47 Last Admin: 02/06/25 21:24 Dose: 25 mls/hr Lactated Ringer's (Lactated Ringers) 1,000 mls @ 999 mls/hr IV .Q1H1M ONE Stop: 02/06/25 23:17 Last Admin: 02/06/25 22:30 Dose: 999 mls/hr Vancomycin/Sodium Chloride (Vancomycin/Ns 750 Mg Ivpb) 750 mg in 150 mls @ 120 mls/hr IV BID@1000,2200 [facility]; Protocol Stop: 02/14/25 09:59 Last Admin: 02/08/25 09:22 Dose: Not Given Lactated Ringer's (Lactated Ringers) 500 mls @ 999 mls/hr IV .Q31M ONE Stop: 02/07/25 18:41 Last Admin: 02/07/25 18:21 Dose: 999 mls/hr Norepinephrine/Dextrose (Levophed In D5w 8mg/250ml) 8 mg in 250 mls @ 4.678 mls/hr IV .Q24H PRN; Protocol PRN Reason: PER PROTOCOL Stop: 03/08/25 15:44 Last Titration: 02/08/25 08:45 Dose: 0 mcg/kg/min, 0 mls/hr Potassium Chloride (Kcl Ivpb) 10 meq in 100 mls @ 100 mls/hr IV Q1H [facility] Stop: 02/08/25 10:47 Last Admin: 02/08/25 10:24 Dose: 100 mls/hr Magnesium Sulfate (Magnesium Sulfate Ivpb) 2 gm in 50 mls @ 25 mls/hr IV X1 ONE Stop: 02/08/25 10:47 Last Admin: 02/08/25 09:24 Dose: 25 mls/hr Dextrose (D5w) 1,000 mls @ 100 mls/hr IV .Q10H [facility] Stop: 02/09/25 06:29 Last Admin: 02/08/25 21:31 Dose: 100 mls/hr Lactated Ringer's (Lactated Ringers) 500 mls @ 999 mls/hr IV .Q31M ONE Stop: 02/08/25 19:54 Last Admin: 02/08/25 19:30 Dose: 999 mls/hr Potassium Phosphate (Pot Phos 15 Mmol In Ns 250 Ml) 15 mmol in 250 mls @ 62.5 mls/hr IV Q4H [facility] Stop: 02/09/25 16:01 Last Admin: 02/09/25 11:47 Dose: 62.5 mls/hr Potassium Chloride (Kcl Ivpb) 10 meq in 100 mls @ 100 mls/hr IV X1 ONE Stop: 02/09/25 09:46 Last Admin: 02/09/25 08:53 Dose: 100 mls/hr Lactated Ringer's (Lactated Ringers) 1,000 mls @ 250 mls/hr IV .Q4H ONE Stop: 02/09/25 15:40 Last Admin: 02/09/25 11:50 Dose: 250 mls/hr Albumin Human (Albuminex 25% Ivpb) 25 gm in 100 mls @ 100 mls/hr IV X1 ONE Stop: 02/09/25 12:41 Last Admin: 02/09/25 11:46 Dose: 100 mls/hr Lactated Ringer's (Lactated Ringers) 1,000 mls @ 250 mls/hr IV .Q4H [facility] Stop: 03/12/25 11:59 Last Admin: 02/11/25 05:21 Dose: 250 mls/hr Magnesium Sulfate (Magnesium Sulfate Ivpb) 2 gm in 50 mls @ 25 mls/hr IV X1 ONE Stop: 02/10/25 13:55 Last Admin: 02/10/25 12:16 Dose: 25 mls/hr Potassium Chloride (Kcl Ivpb) 10 meq in 100 mls @ 100 mls/hr IV Q1H [facility] Stop: 02/11/25 12:27 Last Admin: 02/11/25 12:55 Dose: 100 mls/hr Magnesium Sulfate (Magnesium Sulfate Ivpb) 2 gm in 50 mls @ 25 mls/hr IV X1 ONE Stop: 02/11/25 10:27 Last Admin: 02/11/25 08:38 Dose: 25 mls/hr Potassium Chloride (Kcl Ivpb) 10 meq in 100 mls @ 100 mls/hr IV Q1H [facility] Stop: 02/12/25 11:33 Last Admin: 02/12/25 11:56 Dose: 100 mls/hr Lactated Ringer's (Lactated Ringers) 1,000 mls @ 250 mls/hr IV .Q4H ONE Stop: 02/12/25 12:17 Last Admin: 02/12/25 08:51 Dose: 250 mls/hr Magnesium Sulfate/Dextrose (Magnesium Sulfate Ivpb) 1 gm in 100 mls @ 100 mls/hr IV X1 ONE Stop: 02/13/25 08:17 Last Admin: 02/13/25 08:12 Dose: 100 mls/hr Insulin Human Lispro (Insulin Lispro (Admelog) 1 Unit/0.01 Ml Unit) 0 unit SC Q6HR [facility]; Protocol Stop: 03/08/25 18:44 Last Admin: 02/14/25 05:36 Dose: Not Given Insulin Human Lispro (Insulin Lispro (Admelog) 1 Unit/0.01 Ml Unit) 0 unit SC [facility]; Protocol Stop: 03/16/25 07:29 Last Admin: 02/14/25 16:53 Dose: Not Given Losartan Potassium (Losartan Potassium 25 Mg Tablet) 25 mg PO QDAY [facility] Stop: 03/13/25 11:29 Last Admin: 02/11/25 11:42 Dose: 25 mg Losartan Potassium (Losartan Potassium 25 Mg Tablet) 25 mg PO QDAY [facility] Stop: 03/14/25 08:59 Last Admin: 02/13/25 08:12 Dose: 25 mg Memantine (Memantine Hcl 5 Mg Tablet) 10 mg PO BID [facility] Stop: 03/14/25 12:44 Last Admin: 02/13/25 08:11 Dose: 10 mg Metoprolol Succinate (Metoprolol Succinate Xl 25 Mg Tabcr) 25 mg PO QDAY [facility] Stop: 03/13/25 11:29 Last Admin: 02/13/25 08:12 Dose: 25 mg Mirtazapine (Mirtazapine 15 Mg Tablet) 7.5 mg PO QDAY [facility] Stop: 03/14/25 09:59 Last Admin: 02/12/25 10:54 Dose: Not Given Non-Formulary Medication (Brexpiprazole [Rexulti]) 1 mg PO QDAY [facility] Stop: 03/14/25 12:44 Last Admin: 02/13/25 16:12 Dose: Not Given Pharmacy Consult (Vancomycin Pharmacy To Dose 1 Each Each) 1 each IV QDAY PRN PRN Reason: CONSULT Stop: 03/09/25 08:59 Polyethylene Glycol (Polyethylene Glycol 17 Gm Packet) 17 gm PO QDAY PRN PRN Reason: constipation Stop: 03/09/25 13:44 Potassium Chloride (Potassium Chloride 10% 20 Meq/15 Ml Udc) 40 meq PO X1 ONE Stop: 02/09/25 08:04 Last Admin: 02/09/25 08:54 Dose: 40 meq Potassium Phos/Sodium Phos ([facility] 1 Packet (1.5 Gm)) 1 packet PO X1 ONE Stop: 02/10/25 07:40 Last Admin: 02/10/25 09:06 Dose: 1 packet Sertraline HCl (Sertraline Hcl 25 Mg Tablet) 25 mg PO QDAY [facility] Stop: 03/14/25 08:59 Last Admin: 02/13/25 08:12 Dose: 25 mg Sodium Bicarbonate (Sodium Bicarb Inj 8.4% Syr 50 Ml Syringe) 50 ml IV X1 ONE Stop: 02/07/25 00:09 Last Admin: 02/07/25 05:38 Dose: 50 ml Assessment & Plan Plan 74-year-old female with a history of hypertension, DM2, hyperlipidemia, and Alzheimer's (nonverbal at baseline) was brought to the ED by her daughter for decreased activity and oral intake. Hospital course has been complicated by decreased oral intake. GI consulted for placement of PEG tube for long-term nutritional support. #Failure to thrive #PEG tube placement Patient p.o. intake chronically decreasing however greatly decreased 2 to 3 days prior to admission, dementia may be a contributing factor. During admission, patient noticed to pocket food and does not swallow. NG tube placed 02/12/25 and feeds started 02/13. On continuous tube feeds. 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 We will continue to follow the patient. Case discussed with my attending Dr. Seng Medina MD PGY-1 Attending Provider Attestation/Addendum Patient evaluated laboratory data reviewed imaging studies reviewed Went over the assessment of my internal medicine resident I agree with the assessment Case discussed with the internal medicine team Patient will definitely benefit for placement endoscopically of the gastrostomy tube for long-term management Consent will be obtained from the consumer safety inspector and the patient has been tentatively scheduled for tomorrow Thank you very much for the opportunity to participate in care of this patient
--- NOTE | 2025-02-15 14:27 | PD.RESPRO ---
Documentation for date of: 02/15/25 Subjective Subjective Interval history: No acute overnight events. Patient seen examined at bedside. Patient awake and alert, tinkering with wires in her lap, much less fatigued than before. VSS. Consulted GI for PEG tube placement as discussion held with daughter who is in agreement as patient's p.o. intake has chronically been decreasing however stopped 2 days prior to admission due to sepsis. N.p.o. at midnight but continue NG tube feeds until then. Continue home dementia medications. Zosyn ends today. Exam Vital Signs Temp Pulse Resp BP Pulse Ox O2 Del Method 97.7 F 63 17 100/55 L 96 Room Air 02/15/25 12:00 02/15/25 12:00 02/15/25 12:00 02/15/25 12:00 02/15/25 12:00 02/15/25 12:00 Narrative Exam GENERAL: AOx1, no acute distress, elderly, thin and frail, minimally verbal at baseline HEENT: mucous membranes dry, bilateral sclera anicteric CARDIOVASCULAR: regular rate and rhythm, S1/S2 present, no murmurs appreciated PULMONARY: clear to auscultation bilaterally, no rales/rhonchi/wheezes ABDOMINAL: soft, mild RUQ tenderness on deep palpation, non-distended, bowel sounds present EXTREMITIES: no peripheral edema SKIN: warm and dry, stage II sacral ulcer present around L3/L4, open and clean NEURO: CN II-XII grossly intact, no focal deficits Objective Labs 02/15/25 05:00 02/15/25 05:00 Labs: Laboratory Results - last 24 hr 02/15/25 05:00 WBC 6.3 RBC 4.12 Hgb 10.5 L Hct 33.9 L MCV 82 MCH 25.5 MCHC 31.0 RDW Std Deviation 44.0 Plt Count 187 Neut % (Auto) 67 Lymph % (Auto) 23 Whiteside % (Auto) 7 Eos % (Auto) 1 Baso % (Auto) 0 Neut # (Auto) 4.2 Lymph # (Auto) 1.5 Whiteside # (Auto) 0.5 Eos # (Auto) 0.1 Baso # (Auto) 0.0 Immature Gran # (Auto) 0.07 H Absolute Nucleated RBC 0.00 Immature Gran % 1 H Nucleated RBC % 0 Sodium 140 Potassium 4.4 Chloride 104 Carbon Dioxide 27.3 Anion Gap 9 BUN 8 L Creatinine 0.6 Estim Creat Clear Calc 72.0 eGFR > 60 BUN/Creatinine Ratio 13 Glucose 113 H Calculated Osmolality 278 Calcium 9.2 Corrected Calcium 9.9 Phosphorus 4.2 Magnesium 1.8 Total Bilirubin 0.3 AST 54 H ALT 80 H Alkaline Phosphatase 161 H Total Protein 5.6 L Albumin 3.1 L Globulin 2.5 Albumin/Globulin Ratio 1.2 ABG Interpretation ABG results: 02/06/25 02/06/25 02/06/25 18:05 20:50 22:20 VBG pH 7.27 L 7.33 7.34 VBG pCO2 42 33 L 32 L VBG pO2 42 97 H D 186 H D VBG Base Excess -7 L -8 L -7 L 02/07/25 02/07/25 04:25 07:57 VBG pH 7.38 7.42 VBG pCO2 29 L 32 L VBG pO2 137 H D 190 H D VBG Base Excess -7 L -3 Quality Measures Quality Measures sepsis Current suspected stage: sepsis (resolved, finished abx today) Possible source: unknown Blood cultures ordered: yes Antibiotic ordered: Yes Advance care planning discussed with:: child Assessment & Plan Assessment Current Active Medications: Generic Name Dose Route Start Last Admin Trade Name Freq PRN Reason Stop Dose Admin Acetaminophen 650 mg 02/06/25 09:29 02/06/25 09:50 Acetaminophen Supp 650 Mg Supp [place] 03/08/25 09:28 650 mg Q8HR PRN Administration Fever > 100.4 Collagenase 0 gm 02/14/25 21:00 02/14/25 21:36 Collagenase Oint 30 Gm Tube TOP 03/16/25 20:59 1 applicatio HS PANTERA Administration Brexpiprazole ( 0 ea 02/13/25 14:45 02/15/25 10:03 Rexulti) 1 Mg Tablet PO 03/15/25 14:44 1 tablet QDAY PANTERA Administration Dextrose 25 ml 02/06/25 18:33 Dextrose 50%-Water Inj 50 Ml Syringe IV 03/08/25 18:32 Q15MIN PRN BG 50-70 responsive npo pt Dextrose 50 ml 02/06/25 18:33 Dextrose 50%-Water Inj 50 Ml Syringe IV 03/08/25 18:32 Q15MIN PRN BG <50 OR BG <70 & pt unresponsive Docusate Sodium 100 mg 02/13/25 08:26 02/15/25 05:14 Docusate Sod Liqd 100 Mg/10 Ml Udc NG 03/09/25 13:29 100 mg QDAY PRN Administration CONSTIPATION Protocol Donepezil HCl 10 mg 02/13/25 08:22 02/14/25 21:37 Donepezil Hcl 5 Mg Tablet NG 03/14/25 20:59 10 mg HS PANTERA Administration Protocol Glucagon 1 mg 02/06/25 18:33 Glucagon Inj 1 Mg Vial IM Q15MIN PRN BG <70, and no IV access Heparin Sodium (Porcine) 5,000 unit 02/13/25 21:00 02/15/25 10:05 Heparin Sod Inj 5000 Unit/Ml Vial SC 02/27/25 20:59 5,000 unit Q12HR PANTERA Administration Piperacillin/Tazobactam/Dextrose 3.375 gm in 50 mls @ 12.5 mls/hr 02/14/25 14:16 02/15/25 13:23 Zosyn IV 02/21/25 14:15 12.5 mls/hr Q8HR PANTERA Administration Protocol Insulin Human Lispro 0 unit 02/15/25 00:00 02/15/25 12:20 Insulin Lispro (Admelog) 1 Unit/0.01 Ml Unit SC 03/17/25 00:00 Not Given Q6H PANTERA Protocol Losartan Potassium 25 mg 02/13/25 08:22 02/15/25 10:03 Losartan Potassium 25 Mg Tablet NG 03/14/25 08:59 25 mg QDAY PANTERA Administration Protocol Memantine 10 mg 02/13/25 08:23 02/15/25 10:03 Memantine Hcl 5 Mg Tablet NG 03/14/25 12:44 10 mg BID PANTERA Administration Protocol Metoprolol Tartrate 25 mg 02/13/25 09:00 02/15/25 10:04 Metoprolol Tartrate 25 Mg Tablet NG 03/13/25 11:29 25 mg DAILY PANTERA Administration Ondansetron HCl 4 mg 02/06/25 09:29 02/06/25 09:50 Ondansetron Inj 2 Mg/Ml Inj 2 Ml IVP 03/08/25 09:28 4 mg Q6HR PRN Administration NAUSEA OR VOMITING Sertraline HCl 25 mg 02/13/25 08:23 02/15/25 10:03 Sertraline Hcl 25 Mg Tablet NG 03/14/25 08:59 25 mg QDAY PANTERA Administration Thiamine HCl 100 mg 02/13/25 09:00 02/15/25 10:02 Thiamine Inj 100 Mg/Ml Vial 2 Ml IVP 03/15/25 08:59 100 mg QDAY PANTERA Administration Plan Vidya Atieh 74F pmhx significant for hypertension, DM2, hyperlipidemia, and Alzheimer's (minimally verbal at baseline) initially admitted to the ICU on 02/06/2025 due to distributive shock 2/2 cholecystitis vs chronic sacral ulcer, downgraded on 02/08 to floors for further management. Hospital course prolonged by failure to thrive. #Failure to thrive Per family at bedside, patient p.o. intake chronically decreasing however greatly decreased 2 to 3 days prior to admission. Likely 2/2 dementia. During admission, patient noticed to pocket food and does not swallow. Possible dementia contributing. 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 NG tube placed 02/12/25 and feeds started 02/13. Plan: - Cutting And Splicing Supervisor consulted for NG tube feeds: starting glucerna 1.2 at 20 mL/hr, advance 10 mL q8h with goal of 55 cc/hr, with 25cc/hr free water flushes, hold at midnight - Thiamine 100mg IVP daily - PT to assist with up to chair - GI consulted, recs appreciated: PEG tube to be placed tomorrow, NPO after midnight - 1L LR at 100 cc/hr today #Alzheimers #Depression On home brexiprazole, donepezil, sertraline and memantine. Patient noted to have excessive fatigue 02/11 possibly second to home medication being withheld. Plan: - Restart home meds through NG tube - Restarted brexpiprazole 1 mg daily, donepezil 10 mg nightly, memantine 10 mg twice daily, sertraline 25 mg daily #Septic shock, resolved, 2/2 acute cholecystitis #Cholecystitis #Sacral ulcer, ESBL and proteus mirabilis Presented with decreased activity, PO intake and RUQ tenderness. On admission, hypotensive, tachycardic, febrile with leukocytosis 12.9, ALT/AST and Tbili wnl and lactic acidosis 2.1. End organ damage NSTEMI type II. s/p sepsis bolus. Patient initially admitted to ICU 02/06 for septic shock requiring 3 pressors and stress dosed hydrocotrisone. Eventually weaned off and downgraded 02/08. BCx NGTD. UA neg. CXR neg for PNA. Head CT neg for acute processes. Wound Cx: ESBL and proteus mirabilis 02/06 CTAP: GB not visualized, abundant stool in rectum, moderate L renal scarring, minimal thickening of urinary bladder wall. 02/07 RUQ US fluid adjacent to GB wall, small kidneys w bilateral renal cortical thinning Ddx: infectious etiology cholecystitis vs sacral ulcer as sources, low suspicion of cardiogenic given benign echo findings Vanc (02/06-02/08) due to MRSA nares neg Plan: - Zosyn (02/06-02/15) - Surgery consulted, recs appreciated: no need for intervention at this time - PT ordered: SNF #ARLEN, likely prerenal, resolved #Oliguria, resolved #Hyperosmolar hypovolemic hypernatremia, resolved Family endorses poor PO intake. Admission Na 153, Sosm 309, Cr 0.8. During ICU stay, patient noted to have decreased UOP ~300cc/24h, calculated to about 0.2 cc/kg/hr, qualifying KDIGO stage III guidelines of ARLEN of <0.3 cc/kg/hr. FENa 0.2 supporting prerenal dehydration vs sepsis, estimated urine osmolality 268. UOP vastly improved on 02/09. 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 Estimated EF 45-50%, Grade 1 diastolic dysfunction. Estimated RSVP 17mmHg. No mitral valve stenosis and mild regurgitation. Mild MAC. Trace tricuspid valve regurgitation. Left atrium is mildly enlarged, normal right atrium Plan: - Caution with fluid boluses - With improvement of sepsis, start metoprolol XL 25 mg QD and losartan 25 mg QD as BP tolerates - Keep K>4 and Mg>2 at all times #Acute on chronic encephalopathy Likely toxic/metabolic, improved #Hx of Chronic Dementia Has hx of Alzheimers on donepezil, memantine, brexpiprazole and sertraline. At baseline minimally verbal and AOx1. Head CT neg for acute processes Ddx: Alzheimers vs infectious vs metabolic from acidosis vs polypharmacy Plan: - Treat underlying infection - CTM mental status #Normocytic normochromic anemia likely anemia of chronic disease Noted to have Hgb 10.9 with MCV 86 following IVF. Reticulocyte count elevated 1.1 indicating intact production. Iron panel (iron 21, TIBC 172, Iron sat 12%, Unsat Iron Binding 151 (L), ferritin 307. No overt areas of bleeding, rectal exam done in ICU no blood noted. Smear shows normocytic normochromic anemia, mature neutrophilia DDx: Chronic disease, chronic anemia, medication induced Plan: - CTM CBC #NIDDM2 a1c 5.3. Home metformin 500 mg QD Plan: - SSI step 1 - Hypoglycemia protocol #Hx of Hypertension Holding blood pressure medicines in setting of hypotension and shock #NSTEMI type II, likely related to demand ischemia, resolved #Lactic acidosis, resolved #NAGMA with respiratory alkalosis, resolved #Mixed acid-base disorder Hospital management: Lines: PIV Diet: Glucerna via NG tube with free water flushes Bowel: docusate prn GI prophylaxis: None DVT prophylaxis: heparin q12h Disposition: PEG placement tomorrow CODE STATUS: FULL CODE This case was discussed with my attending physician, Dr. Pearce, and senior resident, Dr. Zacarias. Ade Jade, Internal Medicine PGY-1 Senior Resident Attestation: The family decided to proceed with PEG tube placement, and will likely get PEG tube by tomorrow morning or afternoon, after that we will evaluate for the tolerance of feeding. Then the patient will be discharged to SNF. I discussed with and supervised the risk management intern physician involved in the care of this patient. I personally saw and examined the patient and discussed the assessment and plan with the entire medicine team, including my attending. I agree with the assessment and plan as documented above. Sumanth Zacarias MD PGY3 Internal Medicine Attending Provider Attestation/Addendum Patient was admitted for septic shock, cholecystitis, not a surgical candidate. The patient has dementia. She has sacral decubitus ulcers. She has poor appetite poor intake. Will plan to do PEG tube placement. Dr. Ellsworth will be consulted. No evidence of oral thrush. I discussed with and supervised the resident physician who took care of this patient. I agree with the assessment and plan as above.
--- NOTE | 2025-02-15 16:02 | PC.NURSE ---
Notified Dr. Jade of pt BP of 86/45 on left arm and 98/[address] Jade said she will add parameters to pt BP meds
--- NOTE | 2025-02-15 16:09 | PC.SS ---
SS met with pt and dtr to confirm d/c to SNF, [facility]. Daughter's choice is [facility].
[2025-02-15] MEDS: RINGERS LACTATED 1000 ML 1,000 ML 100 ML IV (18:23)
[2025-02-15] MEDS: COLLAGENASE OINT 30 GM TUBE TOP (22:00)
[2025-02-15] MEDS: DONEPEZIL HCL 5 MG TABLET 10 MG NG (22:05)
[2025-02-16] VITALS (20 sets, daily range): BP systolic 102–150; BP diastolic 50–86; PULSE 62–98; RESP 13–19; TEMP 36.2–36.8; O2SAT 93–98
[2025-02-16 06:02] LABS: Basophils # (Auto) 0.0 Thou/mm3 (0.0-0.2); Basophils % (Auto) 1 % (0-2.5); Eosinophils # (Auto) 0.1 Thou/mm3 (0.0-0.5); Eosinophils % (Auto) 2 % (0-10); Hematocrit 34.3 % (36.0-46.0); Hemoglobin 10.7 g/dL (12.0-16.0); Immature Granulocytes Auto 0.07 Thou/mm3 (0.00-0.00); Lymphocytes # (Auto) 1.6 Thou/mm3 (1.0-4.8); Lymphocytes % (Auto) 24 % (10-50); Mean Corpuscular HGB Conc 31.2 g/dl (31.0-37.0); Mean Corpuscular Hemoglobin 25.7 pg (25.0-35.0); Mean Corpuscular Volume 83 fL (80-100); Monocytes # (Auto) 0.5 Thou/mm3 (0.0-0.8); Monocytes % (Auto) 7 % (0-12); Neutrophils # (Auto) 4.4 Thou/mm3 (1.8-7.7); Neutrophils % (Auto) 66 % (37-80); Nucleated Red Blood Cell # 0.00 Thou/mm3 (0.00-0.00); Nucleated Red Blood Cell % 0 /100 WBC (0); Platelet Count 170 Thou/mm3 (140-440); RDW Standard Deviation 45.8 fL (36.4-46.3); Red Blood Count 4.16 Miln/mm3 (4.00-5.20); White Blood Count 6.6 Thou/mm3 (3.6-11.0)
[2025-02-16 06:29] LABS: Alanine Aminotransferase 64 U/L (10-49); Albumin, Serum 3.3 gm/dL (3.4-4.8); Albumin/Globulin Ratio 1.3 (1.2-2.2); Alkaline Phosphatase 146 U/L (46-116); Anion Gap 9 (7-16); Aspartate Amino Transferase 41 U/L (0-34); BUN/Creatinine Ratio 12 Ratio (12-20); Bilirubin,Total 0.4 mg/dL (0.3-1.2); Blood Urea Nitrogen 7 mg/dL (9-23); Calcium 9.3 mg/dL (8.3-10.6); Calcium (Corrected) 9.9 mg/dL (8.5-10.1); Carbon Dioxide 23.7 mMol/L (20.0-31.0); Chloride 105 mMol/L (98-107); Creatinine (Component) 0.6 mg/dL (0.6-1.3); Estimated Creatinine Clearance 66.0 mL/min (>60); Globulin 2.5 gm/dL (2.3-3.5); Glucose 95 mg/dL (74-106); Magnesium 1.8 mg/dL (1.6-2.6); Osmolality,Calculated 273 (275-295); Phosphorous 3.8 mg/dL (2.4-5.1); Potassium 4.4 mMol/L (3.4-5.1); Sodium 138 mMol/L (136-145); Total Protein 5.8 gm/dL (5.7-8.2); eGFR > 60 See Note
[2025-02-16] MEDS: MEMANTINE HCL 5 MG TABLET 10 MG NG ×2 (09:32→22:43)
[2025-02-16] MEDS: LOSARTAN POTASSIUM 25 MG TABLET NG (09:32)
[2025-02-16] MEDS: SERTRALINE HCL 25 MG TABLET NG (09:32)
[2025-02-16] MEDS: METOPROLOL TARTRATE 25 MG TABLET NG (09:32)
[2025-02-16] MEDS: THIAMINE INJ 100 MG/ML VIAL 2 ML IVP (09:33)
--- NOTE | 2025-02-16 10:03 | PC.SS ---
Follow up note: SS spoke to Claudia from [facility] who states she received updated inquiry and they can accept pt on peg tube but not on TPN or NG tube. Pt will get a peg tube then have NG tube removed.
--- NOTE | 2025-02-16 10:26 | PD.RESPRO ---
Documentation for date of: 02/16/25 Subjective Subjective Interval history: No acute night events. Patient examined at bedside. No abdominal pain to palpation. VSS. PEG tube to be placed tonight. If patient tolerates feeds following PEG placement, anticipate 24 to 48 hours discharge to long term facility. Exam Vital Signs Temp Pulse Resp BP Pulse Ox O2 Del Method 97.4 F 88 18 112/70 95 Room Air 02/16/25 08:00 02/16/25 09:32 02/16/25 08:00 02/16/25 09:32 02/16/25 08:00 02/16/25 08:00 Narrative Exam GENERAL: AOx1, no acute distress, elderly, thin and frail, minimally verbal at baseline, minimally interactive HEENT: mucous membranes dry, bilateral sclera anicteric CARDIOVASCULAR: regular rate and rhythm, S1/S2 present, no murmurs appreciated PULMONARY: clear to auscultation bilaterally, no rales/rhonchi/wheezes ABDOMINAL: soft, no RUQ TTP, non-distended, bowel sounds present EXTREMITIES: no peripheral edema SKIN: warm and dry, stage II sacral ulcer present around L3/L4, open and clean NEURO: CN II-XII grossly intact, no focal deficits Objective Labs 02/17/25 05:25 02/17/25 05:25 Labs: Laboratory Results - last 24 hr 02/16/25 05:01 WBC 6.6 RBC 4.16 Hgb 10.7 L Hct 34.3 L MCV 83 MCH 25.7 MCHC 31.2 RDW Std Deviation 45.8 Plt Count 170 Neut % (Auto) 66 Lymph % (Auto) 24 Howard % (Auto) 7 Eos % (Auto) 2 Baso % (Auto) 1 Neut # (Auto) 4.4 Lymph # (Auto) 1.6 Howard # (Auto) 0.5 Eos # (Auto) 0.1 Baso # (Auto) 0.0 Immature Gran # (Auto) 0.07 H Absolute Nucleated RBC 0.00 Immature Gran % 1 H Nucleated RBC % 0 Sodium 138 Potassium 4.4 Chloride 105 Carbon Dioxide 23.7 Anion Gap 9 BUN 7 L Creatinine 0.6 Estim Creat Clear Calc 66.0 eGFR > 60 BUN/Creatinine Ratio 12 Glucose 95 Calculated Osmolality 273 L Calcium 9.3 Corrected Calcium 9.9 Phosphorus 3.8 Magnesium 1.8 Total Bilirubin 0.4 AST 41 H ALT 64 H Alkaline Phosphatase 146 H Total Protein 5.8 Albumin 3.3 L Globulin 2.5 Albumin/Globulin Ratio 1.3 ABG Interpretation ABG results: 02/06/25 02/06/25 02/06/25 18:05 20:50 22:20 VBG pH 7.27 L 7.33 7.34 VBG pCO2 42 33 L 32 L VBG pO2 42 97 H D 186 H D VBG Base Excess -7 L -8 L -7 L 02/07/25 02/07/25 04:25 07:57 VBG pH 7.38 7.42 VBG pCO2 29 L 32 L VBG pO2 137 H D 190 H D VBG Base Excess -7 L -3 Quality Measures Quality Measures sepsis Current suspected stage: sepsis (resolved, completed course of abx) Possible source: unknown Blood cultures ordered: yes Antibiotic ordered: Yes Advance care planning discussed with:: child Assessment & Plan Assessment Current Active Medications: Generic Name Dose Route Start Last Admin Trade Name Freq PRN Reason Stop Dose Admin Acetaminophen 650 mg 02/06/25 09:29 02/06/25 09:50 Acetaminophen Supp 650 Mg Supp [place] 03/08/25 09:28 650 mg Q8HR PRN Administration Fever > 100.4 Collagenase 0 gm 02/14/25 21:00 02/15/25 22:00 Collagenase Oint 30 Gm Tube TOP 03/16/25 20:59 1 applicatio HS PANTERA Administration Brexpiprazole ( 0 ea 02/13/25 14:45 02/16/25 09:33 Rexulti) 1 Mg Tablet PO 03/15/25 14:44 1 tablet QDAY PANTERA Administration Dextrose 25 ml 02/06/25 18:33 Dextrose 50%-Water Inj 50 Ml Syringe IV 03/08/25 18:32 Q15MIN PRN BG 50-70 responsive npo pt Dextrose 50 ml 02/06/25 18:33 Dextrose 50%-Water Inj 50 Ml Syringe IV 03/08/25 18:32 Q15MIN PRN BG <50 OR BG <70 & pt unresponsive Docusate Sodium 100 mg 02/13/25 08:26 02/15/25 05:14 Docusate Sod Liqd 100 Mg/10 Ml Udc NG 03/09/25 13:29 100 mg QDAY PRN Administration CONSTIPATION Protocol Donepezil HCl 10 mg 02/13/25 08:22 02/15/25 22:05 Donepezil Hcl 5 Mg Tablet NG 03/14/25 20:59 10 mg HS PANTERA Administration Protocol Glucagon 1 mg 02/06/25 18:33 Glucagon Inj 1 Mg Vial IM Q15MIN PRN BG <70, and no IV access Heparin Sodium (Porcine) 5,000 unit 02/13/25 21:00 02/16/25 09:24 Heparin Sod Inj 5000 Unit/Ml Vial SC 02/27/25 20:59 Not Given Q12HR PANTERA Insulin Human Lispro 0 unit 02/15/25 00:00 02/16/25 06:00 Insulin Lispro (Admelog) 1 Unit/0.01 Ml Unit SC 03/17/25 00:00 Not Given Q6H PANTERA Protocol Losartan Potassium 25 mg 02/13/25 08:22 02/16/25 09:32 Losartan Potassium 25 Mg Tablet NG 03/14/25 08:59 25 mg QDAY PANTERA Administration Protocol Memantine 10 mg 02/13/25 08:23 02/16/25 09:32 Memantine Hcl 5 Mg Tablet NG 03/14/25 12:44 10 mg BID PANTERA Administration Protocol Metoprolol Tartrate 25 mg 02/16/25 09:00 02/16/25 09:32 Metoprolol Tartrate 25 Mg Tablet NG 03/18/25 08:59 25 mg DAILY PANTERA Administration Ondansetron HCl 4 mg 02/06/25 09:29 02/06/25 09:50 Ondansetron Inj 2 Mg/Ml Inj 2 Ml IVP 03/08/25 09:28 4 mg Q6HR PRN Administration NAUSEA OR VOMITING Sertraline HCl 25 mg 02/13/25 08:23 02/16/25 09:32 Sertraline Hcl 25 Mg Tablet NG 03/14/25 08:59 25 mg QDAY PANTERA Administration Thiamine HCl 100 mg 02/13/25 09:00 02/16/25 09:33 Thiamine Inj 100 Mg/Ml Vial 2 Ml IVP 03/15/25 08:59 100 mg QDAY PANTERA Administration Plan Radwa Atieh 74F pmhx significant for hypertension, DM2, hyperlipidemia, and Alzheimer's (minimally verbal at baseline) initially admitted to the ICU on 02/06/2025 due to distributive shock 2/2 cholecystitis vs chronic sacral ulcer, downgraded on 02/08 to floors for further management. Hospital course prolonged by failure to thrive. #Failure to thrive Per family at bedside, patient p.o. intake chronically decreasing however greatly decreased 2 to 3 days prior to admission. Likely 2/2 dementia. During admission, patient noticed to pocket food and does not swallow. Possible dementia contributing. 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 NG tube placed 02/12/25 and feeds started 02/13. Plan: - Utility Accounts Director consulted for NG tube feeds: starting glucerna 1.2 at 20 mL/hr, advance 10 mL q8h with goal of 55 cc/hr, with 25cc/hr free water flushes, hold at midnight - Thiamine 100mg IVP daily - PT to assist with up to chair - GI consulted, recs appreciated: PEG tube to be placed today, NPO now #Alzheimers #Depression On home brexiprazole, donepezil, sertraline and memantine. Patient noted to have excessive fatigue 02/11 possibly second to home medication being withheld. Plan: - Restart home meds through NG tube - Restarted brexpiprazole 1 mg daily, donepezil 10 mg nightly, memantine 10 mg twice daily, sertraline 25 mg daily #Septic shock, resolved, 2/2 acute cholecystitis #Cholecystitis #Sacral ulcer, ESBL and proteus mirabilis Presented with decreased activity, PO intake and RUQ tenderness. On admission, hypotensive, tachycardic, febrile with leukocytosis 12.9, ALT/AST and Tbili wnl and lactic acidosis 2.1. End organ damage NSTEMI type II. s/p sepsis bolus. Patient initially admitted to ICU 02/06 for septic shock requiring 3 pressors and stress dosed hydrocotrisone. Eventually weaned off and downgraded 02/08. BCx NGTD. UA neg. CXR neg for PNA. Head CT neg for acute processes. Wound Cx: ESBL and proteus mirabilis 02/06 CTAP: GB not visualized, abundant stool in rectum, moderate L renal scarring, minimal thickening of urinary bladder wall. 02/07 RUQ US fluid adjacent to GB wall, small kidneys w bilateral renal cortical thinning Ddx: infectious etiology cholecystitis vs sacral ulcer as sources, low suspicion of cardiogenic given benign echo findings Vanc (02/06-02/08) due to MRSA nares neg. Zosyn (02/06-02/15) Plan: - Surgery consulted, recs appreciated: no need for intervention at this time - PT ordered: SNF #ARLEN, likely prerenal, resolved #Oliguria, resolved #Hyperosmolar hypovolemic hypernatremia, resolved Family endorses poor PO intake. Admission Na 153, Sosm 309, Cr 0.8. During ICU stay, patient noted to have decreased UOP ~300cc/24h, calculated to about 0.2 cc/kg/hr, qualifying KDIGO stage III guidelines of ARLEN of <0.3 cc/kg/hr. FENa 0.2 supporting prerenal dehydration vs sepsis, estimated urine osmolality 268. UOP vastly improved on 02/09. 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 Estimated EF 45-50%, Grade 1 diastolic dysfunction. Estimated RSVP 17mmHg. No mitral valve stenosis and mild regurgitation. Mild MAC. Trace tricuspid valve regurgitation. Left atrium is mildly enlarged, normal right atrium Plan: - Caution with fluid boluses - With improvement of sepsis, start metoprolol XL 25 mg QD and losartan 25 mg QD as BP tolerates - Keep K>4 and Mg>2 at all times #Acute on chronic encephalopathy Likely toxic/metabolic, improved #Hx of Chronic Dementia Has hx of Alzheimers on donepezil, memantine, brexpiprazole and sertraline. At baseline minimally verbal and AOx1. Head CT neg for acute processes Ddx: Alzheimers vs infectious vs metabolic from acidosis vs polypharmacy Plan: - Treat underlying infection - CTM mental status #Normocytic normochromic anemia likely anemia of chronic disease Noted to have Hgb 10.9 with MCV 86 following IVF. Reticulocyte count elevated 1.1 indicating intact production. Iron panel (iron 21, TIBC 172, Iron sat 12%, Unsat Iron Binding 151 (L), ferritin 307. No overt areas of bleeding, rectal exam done in ICU no blood noted. Smear shows normocytic normochromic anemia, mature neutrophilia DDx: Chronic disease, chronic anemia, medication induced Plan: - CTM CBC #NIDDM2 a1c 5.3. Home metformin 500 mg QD Plan: - SSI step 1 - Hypoglycemia protocol #Hx of Hypertension Holding blood pressure medicines in setting of hypotension and shock #NSTEMI type II, likely related to demand ischemia, resolved #Lactic acidosis, resolved #NAGMA with respiratory alkalosis, resolved #Mixed acid-base disorder Hospital management: Lines: PIV Diet: NPO Bowel: docusate prn GI prophylaxis: None DVT prophylaxis: heparin q12h Disposition: PEG placement tonight CODE STATUS: FULL CODE This case was discussed with my attending physician, Dr. Fisher, and senior resident, Dr. Zacarias. Ade Jade, DO Internal Medicine PGY-1 Senior Resident Attestation: The patient will likely get PEG tube placed tonight, and after that the patient will be started on feeding via PEG tube. Once the patient tolerates the diet well we will discharge the patient to SNF. I discussed with and supervised the healthcare administration intern physician involved in the care of this patient. I personally saw and examined the patient and discussed the assessment and plan with the entire medicine team, including my attending. I agree with the assessment and plan as documented above. Sumanth Zacarias MD PGY3 Internal Medicine Attending Provider Attestation/Addendum I reviewed labs, imaging, EKG, home medications and prior available records. Face to face evaluation was performed by me. I have personally examined the patient and discussed assessment and plan with the IM team. I reviewed the resident note and agree with the plan with exceptions as below. Failure to thrive in adult Alzheimer's dementia ARLEN, resolved Depression Heart failure with mildly reduced EF of 45 to 50% Essential hypertension She is not meeting her nutritional requirements Consulted GI for PEG tube placement Monitor for refeeding syndrome Continue donepezil, brexpiprazole, and memantine Outpatient follow-up with neurology/geriatrics
--- NOTE | 2025-02-16 20:45 | SUR.PHASEI ---
report received from nurse cony. vss. breathing even and unlabored. peg tube site cdi. bleeding noted lower lip on arrival. pressure applied and cleaned. dr bowen aware. cut noted from procedure.
--- NOTE | 2025-02-16 21:15 | SUR.PHASEI ---
report called to jo-ann choi. vss. breathing even and unlabored. dressing cdi to peg, drainage sponge. fc draining to gravity. transported to room via gurney. abdominal binder applied.
[2025-02-16] MEDS: COLLAGENASE OINT 30 GM TUBE TOP (22:43)
[2025-02-16] MEDS: DONEPEZIL HCL 5 MG TABLET 10 MG NG (22:43)
[2025-02-17] VITALS (8 sets, daily range): BP systolic 105–126; BP diastolic 56–78; PULSE 62–85; RESP 16–20; TEMP 36.3–37.1; O2SAT 92–96; BMI 21.2
[2025-02-17 06:26] LABS: Basophils # (Auto) 0.0 Thou/mm3 (0.0-0.2); Basophils % (Auto) 0 % (0-2.5); Eosinophils # (Auto) 0.1 Thou/mm3 (0.0-0.5); Eosinophils % (Auto) 1 % (0-10); Hematocrit 35.3 % (36.0-46.0); Hemoglobin 11.2 g/dL (12.0-16.0); Immature Granulocytes Auto 0.05 Thou/mm3 (0.00-0.00); Lymphocytes # (Auto) 1.5 Thou/mm3 (1.0-4.8); Lymphocytes % (Auto) 17 % (10-50); Mean Corpuscular HGB Conc 31.7 g/dl (31.0-37.0); Mean Corpuscular Hemoglobin 26.1 pg (25.0-35.0); Mean Corpuscular Volume 82 fL (80-100); Monocytes # (Auto) 0.5 Thou/mm3 (0.0-0.8); Monocytes % (Auto) 6 % (0-12); Neutrophils # (Auto) 6.6 Thou/mm3 (1.8-7.7); Neutrophils % (Auto) 76 % (37-80); Nucleated Red Blood Cell # 0.00 Thou/mm3 (0.00-0.00); Nucleated Red Blood Cell % 0 /100 WBC (0); Platelet Count 192 Thou/mm3 (140-440); RDW Standard Deviation 46.9 fL (36.4-46.3); Red Blood Count 4.29 Miln/mm3 (4.00-5.20); White Blood Count 8.8 Thou/mm3 (3.6-11.0)
[2025-02-17 06:56] LABS: Alanine Aminotransferase 75 U/L (10-49); Albumin, Serum 3.5 gm/dL (3.4-4.8); Albumin/Globulin Ratio 1.4 (1.2-2.2); Alkaline Phosphatase 147 U/L (46-116); Anion Gap 10 (7-16); Aspartate Amino Transferase 65 U/L (0-34); BUN/Creatinine Ratio 18 Ratio (12-20); Bilirubin,Total 0.5 mg/dL (0.3-1.2); Blood Urea Nitrogen 9 mg/dL (9-23); Calcium 9.6 mg/dL (8.3-10.6); Calcium (Corrected) 10.0 mg/dL (8.5-10.1); Carbon Dioxide 24.9 mMol/L (20.0-31.0); Chloride 104 mMol/L (98-107); Creatinine (Component) 0.5 mg/dL (0.6-1.3); Estimated Creatinine Clearance 79.3 mL/min (>60); Globulin 2.5 gm/dL (2.3-3.5); Glucose 111 mg/dL (74-106); Magnesium 1.6 mg/dL (1.6-2.6); Osmolality,Calculated 277 (275-295); Potassium 4.2 mMol/L (3.4-5.1); Sodium 139 mMol/L (136-145); Total Protein 6.0 gm/dL (5.7-8.2); eGFR > 60 See Note
[2025-02-17] MEDS: HEPARIN SOD INJ 5000 UNIT/ML VIAL SC ×2 (08:14→20:56)
[2025-02-17] MEDS: METOPROLOL TARTRATE 25 MG TABLET NG (08:14)
[2025-02-17] MEDS: MEMANTINE HCL 5 MG TABLET 10 MG NG ×2 (08:14→20:56)
[2025-02-17] MEDS: THIAMINE 100 MG TABLET NG (08:15)
[2025-02-17] MEDS: LOSARTAN POTASSIUM 25 MG TABLET NG (08:15)
[2025-02-17] MEDS: SERTRALINE HCL 25 MG TABLET NG (08:15)
--- NOTE | 2025-02-17 10:27 | ESPR_ITS ---
Documentation for date of: 02/17/25 Subjective Subjective Interval history: No acute overnight events. Patient seen and examined at bedside. Patient appears more interactive today, no lethargy, no upper quadrant tenderness. Patient received PEG tube last night and feeds started this morning. VSS. Mag 1.6 repleted with 2 g. Will observe patient overnight until feeds are at goal, to be discharged within the next 24 to 48 hours. Exam Vital Signs Temp Pulse Resp BP Pulse Ox O2 Del Method O2 Flow Rate 97.8 F 77 16 117/64 94 L Room Air 3 02/17/25 08:00 02/17/25 08:15 02/17/25 08:00 02/17/25 08:15 02/17/25 08:00 02/17/25 08:00 02/16/25 20:50 Narrative Exam GENERAL: AOx1, no acute distress, elderly, thin and frail, minimally verbal at baseline, minimally interactive HEENT: mucous membranes dry, bilateral sclera anicteric CARDIOVASCULAR: regular rate and rhythm, S1/S2 present, no murmurs appreciated PULMONARY: clear to auscultation bilaterally, no rales/rhonchi/wheezes ABDOMINAL: soft, no RUQ TTP, non-distended, bowel sounds present, PEG tube in place with abdominal binder EXTREMITIES: no peripheral edema SKIN: warm and dry, stage II sacral ulcer present around L3/L4, open and clean NEURO: CN II-XII grossly intact, no focal deficits Objective Labs 02/17/25 05:25 02/17/25 05:25 Labs: Laboratory Results - last 24 hr 02/17/25 05:25 WBC 8.8 RBC 4.29 Hgb 11.2 L Hct 35.3 L MCV 82 MCH 26.1 MCHC 31.7 RDW Std Deviation 46.9 H Plt Count 192 Neut % (Auto) 76 Lymph % (Auto) 17 [place] % (Auto) 6 Eos % (Auto) 1 Baso % (Auto) 0 Neut # (Auto) 6.6 Lymph # (Auto) 1.5 [place] # (Auto) 0.5 Eos # (Auto) 0.1 Baso # (Auto) 0.0 Immature Gran # (Auto) 0.05 H Absolute Nucleated RBC 0.00 Immature Gran % 1 H Nucleated RBC % 0 Sodium 139 Potassium 4.2 Chloride 104 Carbon Dioxide 24.9 Anion Gap 10 BUN 9 Creatinine 0.5 L Estim Creat Clear Calc 79.3 eGFR > 60 BUN/Creatinine Ratio 18 Glucose 111 H Calculated Osmolality 277 Calcium 9.6 Corrected Calcium 10.0 Magnesium 1.6 Total Bilirubin 0.5 AST 65 H ALT 75 H Alkaline Phosphatase 147 H Total Protein 6.0 Albumin 3.5 Globulin 2.5 Albumin/Globulin Ratio 1.4 ABG Interpretation ABG results: 02/06/25 02/06/25 02/06/25 18:05 20:50 22:20 VBG pH 7.27 L 7.33 7.34 VBG pCO2 42 33 L 32 L VBG pO2 42 97 H D 186 H D VBG Base Excess -7 L -8 L -7 L 02/07/25 02/07/25 04:25 07:57 VBG pH 7.38 7.42 VBG pCO2 29 L 32 L VBG pO2 137 H D 190 H D VBG Base Excess -7 L -3 Quality Measures Quality Measures sepsis Current suspected stage: sepsis (resolved, completed abx tx) Possible source: unknown Blood cultures ordered: yes Antibiotic ordered: Yes Advance care planning discussed with:: child Assessment & Plan Assessment Current Active Medications: Generic Name Dose Route Start Last Admin Trade Name Freq PRN Reason Stop Dose Admin Acetaminophen 650 mg 02/06/25 09:29 02/06/25 09:50 Acetaminophen Supp 650 Mg Supp TN 03/08/25 09:28 650 mg Q8HR PRN Administration Fever > 100.4 Collagenase 0 gm 02/14/25 21:00 02/16/25 22:43 Collagenase Oint 30 Gm Tube TOP 03/16/25 20:59 1 applicatio HS PANTERA Administration Brexpiprazole ( 0 ea 02/13/25 14:45 02/16/25 09:33 Rexulti) 1 Mg Tablet PO 03/15/25 14:44 1 tablet QDAY PANTERA Administration Dextrose 25 ml 02/06/25 18:33 Dextrose 50%-Water Inj 50 Ml Syringe IV 03/08/25 18:32 Q15MIN PRN BG 50-70 responsive npo pt Dextrose 50 ml 02/06/25 18:33 Dextrose 50%-Water Inj 50 Ml Syringe IV 03/08/25 18:32 Q15MIN PRN BG <50 OR BG <70 & pt unresponsive Docusate Sodium 100 mg 02/13/25 08:26 02/15/25 05:14 Docusate Sod Liqd 100 Mg/10 Ml Udc NG 03/09/25 13:29 100 mg QDAY PRN Administration CONSTIPATION Protocol Donepezil HCl 10 mg 02/13/25 08:22 02/16/25 22:43 Donepezil Hcl 5 Mg Tablet NG 03/14/25 20:59 10 mg HS PANTERA Administration Protocol Glucagon 1 mg 02/06/25 18:33 Glucagon Inj 1 Mg Vial IM Q15MIN PRN BG <70, and no IV access Heparin Sodium (Porcine) 5,000 unit 02/13/25 21:00 02/17/25 08:14 Heparin Sod Inj 5000 Unit/Ml Vial SC 02/27/25 20:59 5,000 unit Q12HR PANTERA Administration Magnesium Sulfate 2 gm in 50 mls @ 25 mls/hr 02/17/25 08:33 Magnesium Sulfate Ivpb IV 02/17/25 10:32 X1 ONE Insulin Human Lispro 0 unit 02/15/25 00:00 02/17/25 06:21 Insulin Lispro (Admelog) 1 Unit/0.01 Ml Unit SC 03/17/25 00:00 Not Given Q6H PANTERA Protocol Losartan Potassium 25 mg 02/13/25 08:22 02/17/25 08:15 Losartan Potassium 25 Mg Tablet NG 03/14/25 08:59 25 mg QDAY PANTERA Administration Protocol Memantine 10 mg 02/13/25 08:23 02/17/25 08:14 Memantine Hcl 5 Mg Tablet NG 03/14/25 12:44 10 mg BID PANTERA Administration Protocol Metoprolol Tartrate 25 mg 02/16/25 09:00 02/17/25 08:14 Metoprolol Tartrate 25 Mg Tablet NG 03/18/25 08:59 25 mg DAILY PANTERA Administration Ondansetron HCl 4 mg 02/06/25 09:29 02/06/25 09:50 Ondansetron Inj 2 Mg/Ml Inj 2 Ml IVP 03/08/25 09:28 4 mg Q6HR PRN Administration NAUSEA OR VOMITING Sertraline HCl 25 mg 02/13/25 08:23 02/17/25 08:15 Sertraline Hcl 25 Mg Tablet NG 03/14/25 08:59 25 mg QDAY PANTERA Administration Thiamine HCl 100 mg 02/17/25 09:00 02/17/25 08:15 Thiamine 100 Mg Tablet NG 03/15/25 08:59 100 mg QDAY PANTERA Administration Plan Radwa Atieh 74F pmhx significant for hypertension, DM2, hyperlipidemia, and Alzheimer's (minimally verbal at baseline) initially admitted to the ICU on 02/06/2025 due to distributive shock 2/2 cholecystitis vs chronic sacral ulcer, downgraded on 02/08 to floors for further management. Hospital course prolonged by failure to thrive s/p PEG tube placement 02/16. #Failure to thrive s/p PEG placement 02/16/25 Per family at bedside, patient p.o. intake chronically decreasing however greatly decreased 2 to 3 days prior to admission. Likely 2/2 dementia. During admission, patient noticed to pocket food and does not swallow. Possible dementia contributing. SEMIAUTOMATIC STITCHER OPERATOR 02/07: recommend blendurized puree. NG tube placed 02/12/25 and feeds started 02/13. Plan: - Cement Despatch Operator consulted for PEG tube feeds: glucerna 1.2 at 20 mL/hr, advance 10 mL q8h with goal of 55 cc/hr, with 25cc/hr free water flushes, hold at midnight - Thiamine 100mg IVP daily - PT to assist with up to chair - GI consulted, recs appreciated PEG placed 02/17 #Alzheimers #Depression On home brexiprazole, donepezil, sertraline and memantine. Patient noted to have excessive fatigue 02/11 possibly second to home medication being withheld. Plan: - Restart home meds through PEG tube - Restarted brexpiprazole 1 mg daily, donepezil 10 mg nightly, memantine 10 mg twice daily, sertraline 25 mg daily #Septic shock, resolved, 2/2 acute cholecystitis #Cholecystitis #Sacral ulcer, ESBL and proteus mirabilis Presented with decreased activity, PO intake and RUQ tenderness. On admission, hypotensive, tachycardic, febrile with leukocytosis 12.9, ALT/AST and Tbili wnl and lactic acidosis 2.1. End organ damage NSTEMI type II. s/p sepsis bolus. Patient initially admitted to ICU 02/06 for septic shock requiring 3 pressors and stress dosed hydrocotrisone. Eventually weaned off and downgraded 02/08. BCx NGTD. UA neg. CXR neg for PNA. Head CT neg for acute processes. Wound Cx: ESBL and proteus mirabilis 02/06 CTAP: GB not visualized, abundant stool in rectum, moderate L renal scarring, minimal thickening of urinary bladder wall. 02/07 RUQ US fluid adjacent to GB wall, small kidneys w bilateral renal cortical thinning Ddx: infectious etiology cholecystitis vs sacral ulcer as sources, low suspicion of cardiogenic given benign echo findings Vanc (02/06-02/08) due to MRSA nares neg. Zosyn (02/06-02/15) Plan: - Surgery consulted, recs appreciated: no need for intervention at this time - PT ordered: SNF #ARLEN, likely prerenal, resolved #Oliguria, resolved #Hyperosmolar hypovolemic hypernatremia, resolved Family endorses poor PO intake. Admission Na 153, Sosm 309, Cr 0.8. During ICU stay, patient noted to have decreased UOP ~300cc/24h, calculated to about 0.2 cc/kg/hr, qualifying KDIGO stage III guidelines of ARLEN of <0.3 cc/kg/hr. FENa 0.2 supporting prerenal dehydration vs sepsis, estimated urine osmolality 268. UOP vastly improved on 02/09. 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 Estimated EF 45-50%, Grade 1 diastolic dysfunction. Estimated RSVP 17mmHg. No mitral valve stenosis and mild regurgitation. Mild MAC. Trace tricuspid valve regurgitation. Left atrium is mildly enlarged, normal right atrium Plan: - Caution with fluid boluses - With improvement of sepsis, start metoprolol XL 25 mg QD and losartan 25 mg QD as BP tolerates - Keep K>4 and Mg>2 at all times #Acute on chronic encephalopathy Likely toxic/metabolic, improved #Hx of Chronic Dementia Has hx of Alzheimers on donepezil, memantine, brexpiprazole and sertraline. At baseline minimally verbal and AOx1. Head CT neg for acute processes Ddx: Alzheimers vs infectious vs metabolic from acidosis vs polypharmacy Plan: - Treat underlying infection - CTM mental status #Normocytic normochromic anemia likely anemia of chronic disease Noted to have Hgb 10.9 with MCV 86 following IVF. Reticulocyte count elevated 1.1 indicating intact production. Iron panel (iron 21, TIBC 172, Iron sat 12%, Unsat Iron Binding 151 (L), ferritin 307. No overt areas of bleeding, rectal exam done in ICU no blood noted. Smear shows normocytic normochromic anemia, mature neutrophilia DDx: Chronic disease, chronic anemia, medication induced Plan: - CTM CBC #NIDDM2 a1c 5.3. Home metformin 500 mg QD Plan: - SSI step 1 - Hypoglycemia protocol #Hx of Hypertension Holding blood pressure medicines in setting of hypotension and shock #NSTEMI type II, likely related to demand ischemia, resolved #Lactic acidosis, resolved #NAGMA with respiratory alkalosis, resolved #Mixed acid-base disorder Hospital management: Lines: PIV, PEG Diet: Glucerna by PEG Bowel: docusate prn GI prophylaxis: None DVT prophylaxis: heparin q12h Disposition: toleration of PEG feeds CODE STATUS: FULL CODE This case was discussed with my attending physician, Dr. Fisher, and senior resident, Dr. Jim. Ade Jade, DO Internal Medicine PGY-1 Attending Provider Attestation/Addendum I reviewed labs, imaging, EKG, home medications and prior available records. Face to face evaluation was performed by me. I have personally examined the patient and discussed assessment and plan with the IM team. I reviewed the resident note and agree with the plan with exceptions as below. Failure to thrive in adult Alzheimer's dementia ARLEN, resolved Depression Heart failure with mildly reduced EF of 45 to 50% Essential hypertension She is not meeting her nutritional requirements Status post PEG tube placement Started feedings. Advance to the goal of 55 cc/h Monitor for tolerance Monitor for refeeding syndrome Continue donepezil, brexpiprazole, and memantine Outpatient follow-up with neurology/geriatrics
[2025-02-17] MEDS: Magnesium Sulfate 2 GM Ivpb 2 GM/50 ML BAG IV (11:40)
--- NOTE | 2025-02-17 13:55 | PC.SS ---
SS has sent tube feeding information to [facility] using [employer].
--- NOTE | 2025-02-17 17:48 | PD.IMPROG ---
Documentation for date of: 02/17/25 Subjective Subjective Interval history: Status postplacement of a PEG tube Somehow the procedure from the probation did not get transferred to [facility] Exam Vital Signs Temp Pulse Resp BP Pulse Ox O2 Del Method O2 Flow Rate 97.3 F 75 16 106/56 L 96 Room Air 3 02/17/25 16:00 02/17/25 16:00 02/17/25 16:00 02/17/25 16:00 02/17/25 16:00 02/17/25 16:00 02/16/25 20:50 Objective Labs 02/17/25 05:25 02/17/25 05:25 Labs: Laboratory Results - last 24 hr 02/17/25 05:25 WBC 8.8 RBC 4.29 Hgb 11.2 L Hct 35.3 L MCV 82 MCH 26.1 MCHC 31.7 RDW Std Deviation 46.9 H Plt Count 192 Neut % (Auto) 76 Lymph % (Auto) 17 [place] % (Auto) 6 Eos % (Auto) 1 Baso % (Auto) 0 Neut # (Auto) 6.6 Lymph # (Auto) 1.5 [place] # (Auto) 0.5 Eos # (Auto) 0.1 Baso # (Auto) 0.0 Immature Gran # (Auto) 0.05 H Absolute Nucleated RBC 0.00 Immature Gran % 1 H Nucleated RBC % 0 Sodium 139 Potassium 4.2 Chloride 104 Carbon Dioxide 24.9 Anion Gap 10 BUN 9 Creatinine 0.5 L Estim Creat Clear Calc 79.3 eGFR > 60 BUN/Creatinine Ratio 18 Glucose 111 H Calculated Osmolality 277 Calcium 9.6 Corrected Calcium 10.0 Magnesium 1.6 Total Bilirubin 0.5 AST 65 H ALT 75 H Alkaline Phosphatase 147 H Total Protein 6.0 Albumin 3.5 Globulin 2.5 Albumin/Globulin Ratio 1.4 Impressions Impression: Status postplacement of a PEG tube PEG site looks good Continue enteral hyperalimentation ABG Interpretation ABG results: 02/06/25 02/06/25 02/06/25 18:05 20:50 22:20 VBG pH 7.27 L 7.33 7.34 VBG pCO2 42 33 L 32 L VBG pO2 42 97 H D 186 H D VBG Base Excess -7 L -8 L -7 L 02/07/25 02/07/25 04:25 07:57 VBG pH 7.38 7.42 VBG pCO2 29 L 32 L VBG pO2 137 H D 190 H D VBG Base Excess -7 L -3 Assessment & Plan Time Spent With Patient Time: Total time spent is greater than 50% in coordination of care (as documented) at patient's floor/unit and/or counseling patient: PROCEDURES: Arterial Line Size (Gauge): 14
[2025-02-17] MEDS: DONEPEZIL HCL 5 MG TABLET 10 MG NG (20:56)
[2025-02-17] MEDS: COLLAGENASE OINT 30 GM TUBE TOP (20:57)
[2025-02-18] VITALS (7 sets, daily range): BP systolic 100–112; BP diastolic 50–78; PULSE 67–83; RESP 16–23; TEMP 36.1–37.1; O2SAT 94–97
[2025-02-18 05:36] LABS: Phosphorous 3.8 mg/dL (2.4-5.1)
[2025-02-18] MEDS: SERTRALINE HCL 25 MG TABLET NG (09:07)
[2025-02-18] MEDS: LOSARTAN POTASSIUM 25 MG TABLET NG (09:07)
[2025-02-18] MEDS: METOPROLOL TARTRATE 25 MG TABLET NG (09:07)
[2025-02-18] MEDS: MEMANTINE HCL 5 MG TABLET 10 MG NG (09:07)
[2025-02-18] MEDS: HEPARIN SOD INJ 5000 UNIT/ML VIAL SC (09:08)
[2025-02-18] MEDS: THIAMINE 100 MG TABLET NG (09:08)
--- NOTE | 2025-02-18 09:10 | PC.SS ---
Follow up note: Pt is possible d/c to [facility]. SS has informed Claudia pt is requiring Glucerna 1.2 for tube feedings. Claudia from [facility] states they can accommodate pt today and have tube feeding formula.
--- NOTE | 2025-02-18 11:08 | PC.SS ---
SS attempted to setup transportation with Bárbara from [facility] [phone] and Bárbara provided SS with phone# [phone] for [facility] [employer]. SS spoke to Dawna from [facility] to setup [facility] transportation for 3pm to [facility].? Ref# [id number].? SS has requested [facility].? Per [facility] in home sales representative, [facility] is not a guaranteed transport company.? Estimated time is 3-4 hours.? SS has sent patient?s facesheet and ambulance form to [facility] using [facility].? SS has spoken to Angela at [facility] who has placed pt on will call list until she has been contacted by [facility]. Claudia from [facility] is aware. Dtr is aware. Bedside nurse, Teri is aware.
--- NOTE | 2025-02-18 12:44 | PC.NURSE ---
report albert o [facility] 02/18/25 at 1232. Report given to nurse Kade, phone number provided to nurse to call back if questions arise.
--- NOTE | 2025-02-18 12:56 | PC.SS ---
TROY sent to [facility] using [employer].
--- NOTE | 2025-02-18 13:15 | ESDS_ITS ---
Planned Discharge Date 02/18/25 DS: Providers Provider Date of admission: 02/06/25 16:41 Primary care physician: Miryam Crisostomo PA-C Admitting Provider: Felicitas Bella MD Attending Provider on Admission: Mil Pearce MD Consults: 02/06/25 16:58 Referral Wound Care Routine Comment: 02/07/25 11:21 Referral Speech Therapy Routine Comment: 02/08/25 15:40 Consult to General Surgery Routine Comment: Acute cholecystitis Consulting Provider: Cecil Tesfaye 02/12/25 12:00 Referral Physical Therapy Stat Comment: Physician Instructions: 02/12/25 12:58 Referral Registered Dietitian Routine Comment: NG tube feeds 02/15/25 12:18 Consult to Gastroenterology Routine Comment: possible PEG tube placement Consulting Provider: Donis Ellsworth 02/16/25 20:33 Referral Nutritional Services Routine Comment: Attending Provider on DC: Aaron Fisher MD Discharging Provider: Aaron Fisher MD Diagnosis Problem List Completed Was Problem List Reviewed/Reconciled?: Yes Hospital Course - Hospitalist Hospital Course Hospital course: 74-year-old female with past medical history of hypertension, DM2, hyperlipidemia, and Alzheimer's (minimally verbal at baseline) came into the ED brought in by her daughter due to lower activity than normal and decreased p.o. intake for the past 2-3 days. Patient speaks Kiswahili and daughter also speaks Kiswahili. Daughter stated that patient at baseline is mostly bedbound and in order to get her of the need 2-3 people to actually help her stand up and move around. Otherwise she mentioned that patient has not had any nausea, vomiting, diarrhea, or cough as of recently and that she did have the ulcer in her sacral area for around 2 or 3 days and has rapidly progressed and gotten worse. Otherwise no other complaints at this time. ED course: Initially came in hypotensive, tachycardic, and febrile. Initial labs were relevant for leukocytosis 12.9, hyponatremia 153, hypochloremia 117, and lactic acidosis at 2.1 which downtrended to 1.1 and patient's UA was unremarkable. Initial imaging clued chest x-ray which did not show any pneumonia or pulmonary edema, chest/abdomen/pelvis CT which only showed abundant stool in the rectum and mild cystitis, and head CT which was unremarkable. Patient did get initial EKG which showed sinus rhythm with some diffuse ST depressions likely secondary to demand ischemia in the setting of shock. Repeat EKG also showed sinus bradycardia with heart rate of 59 with QTc of 419. In the ER patient was started on Levophed and was requiring high dose vasopressors and was already on Levophed 0.5 during assessment. She also was more bradycardic and had a short episode of tachycardia secondary to being maxed out on Levophed in the ER. Otherwise has been bradycardic in the low 50s high 40s. Patient in the ER got an A-line and central line placed. Inpatient course and medical problems: #Failure to thrive s/p PEG placement 02/16/25 Per family at bedside, patient p.o. intake chronically decreasing however greatly decreased 2 to 3 days prior to admission. Likely 2/2 dementia. During admission, patient noticed to pocket food and does not swallow. Possible dementia contributing. S/p PEG tube insertion on 12/17 - Impersonator Character consulted for PEG tube feeds: glucerna 1.2 at 20 mL/hr, advance 10 mL q8h with goal of 55 cc/hr, with 25cc/hr free water flushes, hold at midnight She tolerated her advance diet #Alzheimers #Depression On home brexiprazole, donepezil, sertraline and memantine. Patient noted to have excessive fatigue 02/11 possibly second to home medication being withheld. Plan: - Restarted home meds through PEG tube - Restarted brexpiprazole 1 mg daily, donepezil 10 mg nightly, memantine 10 mg twice daily, sertraline 25 mg daily #Septic shock, resolved, 2/2 acute cholecystitis #Cholecystitis #Sacral ulcer, ESBL and proteus mirabilis Presented with decreased activity, PO intake and RUQ tenderness. On admission, hypotensive, tachycardic, febrile with leukocytosis 12.9, ALT/AST and Tbili wnl and lactic acidosis 2.1. End organ damage NSTEMI type II. s/p sepsis bolus. Patient initially admitted to ICU 02/06 for septic shock requiring 3 pressors and stress dosed hydrocotrisone. Eventually weaned off and downgraded 02/08. BCx NGTD. UA neg. CXR neg for PNA. Head CT neg for acute processes. Wound Cx: ESBL and proteus mirabilis 02/06 CTAP: GB not visualized, abundant stool in rectum, moderate L renal scarring, minimal thickening of urinary bladder wall. 02/07 RUQ US fluid adjacent to GB wall, small kidneys w bilateral renal cortical thinning Ddx: infectious etiology cholecystitis vs sacral ulcer as sources, low suspicion of cardiogenic given benign echo findings Vanc (02/06-02/08) due to MRSA nares neg. Zosyn (02/06-02/15) Plan: - Surgery consulted, recs appreciated: no need for intervention at this time - PT ordered: SNF #ARLEN, likely prerenal, resolved #Oliguria, resolved #Hyperosmolar hypovolemic hypernatremia, resolved Family endorses poor PO intake. Admission Na 153, Sosm 309, Cr 0.8. During ICU stay, patient noted to have decreased UOP ~300cc/24h, calculated to about 0.2 cc/kg/hr, qualifying KDIGO stage III guidelines of ARLEN of <0.3 cc/kg/hr. FENa 0.2 supporting prerenal dehydration vs sepsis, estimated urine osmolality 268. UOP vastly improved on 02/09. 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 Estimated EF 45-50%, Grade 1 diastolic dysfunction. Estimated RSVP 17mmHg. No mitral valve stenosis and mild regurgitation. Mild MAC. Trace tricuspid valve regurgitation. Left atrium is mildly enlarged, normal right atrium Plan: - Caution with fluid boluses - With improvement of sepsis, start metoprolol XL 25 mg QD and losartan 25 mg QD as BP tolerates - Keep K>4 and Mg>2 at all times #Acute on chronic encephalopathy Likely toxic/metabolic, improved #Hx of Chronic Dementia Has hx of Alzheimers on donepezil, memantine, brexpiprazole and sertraline. At baseline minimally verbal and AOx1. Head CT neg for acute processes Ddx: Alzheimers vs infectious vs metabolic from acidosis vs polypharmacy Plan: - Treat underlying infection - CTM mental status #Normocytic normochromic anemia likely anemia of chronic disease Noted to have Hgb 10.9 with MCV 86 following IVF. Reticulocyte count elevated 1.1 indicating intact production. Iron panel (iron 21, TIBC 172, Iron sat 12%, Unsat Iron Binding 151 (L), ferritin 307. No overt areas of bleeding, rectal exam done in ICU no blood noted. Smear shows normocytic normochromic anemia, mature neutrophilia DDx: Chronic disease, chronic anemia, medication induced Plan: - CTM CBC #NIDDM2 a1c 5.3. Home metformin 500 mg QD Plan: - SSI step 1 - Hypoglycemia protocol #Hyperlipidemia Continue home atorvastatin #Hx of Hypertension Holding blood pressure medicines in setting of hypotension and shock #NSTEMI type II, likely related to demand ischemia, resolved #Lactic acidosis, resolved #NAGMA with respiratory alkalosis, resolved #Mixed acid-base disorder Status at Discharge Cognitive/behavioral status at discharge: Stable Time Spent with Patient Time attestation: Total time spent providing and/or coordinating discharge services: Time spent: Greater than 30 minutes Discharge Results Labs Diagrams: 02/17/25 05:25 02/17/25 05:25 Exam Vital Signs Temp Pulse Resp BP Pulse Ox O2 Del Method O2 Flow Rate 97.0 F 67 20 110/63 97 Room Air 3 02/18/25 12:00 02/18/25 12:00 02/18/25 12:00 02/18/25 12:00 02/18/25 12:00 02/18/25 12:00 02/16/25 20:50 Narrative GENERAL: AOx1, no acute distress, elderly, thin and frail, minimally verbal at baseline, minimally interactive HEENT: mucous membranes dry, bilateral sclera anicteric CARDIOVASCULAR: regular rate and rhythm, S1/S2 present, no murmurs appreciated PULMONARY: clear to auscultation bilaterally, no rales/rhonchi/wheezes ABDOMINAL: soft, no RUQ TTP, non-distended, bowel sounds present, PEG tube in place with abdominal binder EXTREMITIES: no peripheral edema SKIN: warm and dry, stage II sacral ulcer present around L3/L4, open and clean NEURO: CN II-XII grossly intact, no focal deficits Discharge Plan Plan Patient Disposition: Xfer Skilled Nsg Fac (SNF) Prescriptions/Referrals Prescriptions/Med Rec: Continued lisinopril 20 mg tablet 10 mg PO QDAY metformin 500 mg tablet 500 mg PO QDAY atorvastatin 80 mg tablet 80 mg PO QDAY Rexulti 1 mg tablet 1 mg PO QDAY sertraline 25 mg tablet 25 mg PO QDAY donepezil 10 mg tablet 10 mg PO .qhs memantine 10 mg tablet 10 mg PO BID Referrals: Miryam Crisostomo PA-C [Primary Care Provider] Patient/Caregiver Discharge Instructions Meds to Beds: No Discharge Activity: as per physical therapy Education Materials: Wound Care, Sepsis, Dementia Caregiver Tips Print Language: Kiswahili Stand Alone Forms: Maxine Award Info., Patient Portal Info Letter Discharge Order Discharge Orders: Discharge (Routine); Ordered 02/18/25 Ordered By: Aaron Fisher Quality Discharge Quality Measures none
== END 2025-02-18 15:13 | disposition skilled nursing facility (03) | DRG 871 ==
LOC: SERX 09:46 → SERHOLD 17:03 → S2SX 02-07 06:05 → SERHOLD 02-09 08:41 → S2SX 02-09 08:41 → S3NX 02-10 18:24
PROVIDERS: Specialist; Student in an Organized Health Care Education/Training Program; Admitting Provider Internal Medicine; Emergency Provider Emergency Medicine; PCP Physician Assistant; Visit Provider Internal Medicine
PROC: 0DH63UZ Insertion of Feeding Device into Stomach, Percutaneous Approach (ICD-10-PCS; CPT 43246; principal; 2025-02-16 16:30)
DX: A41.9 Sepsis, unspecified organism (principal); G93.41 Metabolic encephalopathy; I21.A1 Myocardial infarction type 2; R57.8 Other shock; R65.21 Severe sepsis with septic shock; G93.40 Encephalopathy, unspecified; E87.4 Mixed disorder of acid-base balance; E87.0 Hyperosmolality and hypernatremia; E87.1 Hypo-osmolality and hyponatremia; I50.22 Chronic systolic (congestive) heart failure; N17.9 Acute kidney failure, unspecified; F02.83 Dementia in other diseases classified elsewhere, unspecified severity, with mood disturbance; I10 Essential (primary) hypertension; F02.80 Dementia in other diseases classified elsewhere, unspecified severity, without behavioral disturbance, psychotic disturbance, mood disturbance, and anxiety; E11.9 Type 2 diabetes mellitus without complications; E78.5 Hyperlipidemia, unspecified; G30.9 Alzheimer's disease, unspecified; L89.156 Pressure-induced deep tissue damage of sacral region; R00.1 Bradycardia, unspecified; K59.00 Constipation, unspecified; E87.6 Hypokalemia; Z74.01 Bed confinement status; D64.9 Anemia, unspecified; Z79.84 Long term (current) use of oral hypoglycemic drugs; I11.0 Hypertensive heart disease with heart failure; L89.159 Pressure ulcer of sacral region, unspecified stage; K82.8 Other specified diseases of gallbladder; N30.90 Cystitis, unspecified without hematuria; E86.1 Hypovolemia; E86.0 Dehydration; R62.7 Adult failure to thrive; Z79.899 Other long term (current) drug therapy; Z93.1 Gastrostomy status
CPT/HCPCS: 36415; 51701; 51702; 70450; 71045; 71260; 74177; 76700; 80053; 80061; 80069; 80202; 81001; 82436; 82570; 82728; 82803; 83036; 83540; 83550; 83605; 83615; 83690; 83735; 83880; 84100; 84133; 84145; 84300; 84443; 84484; 85007; 85025; 85027; 85046; 85379; 85384; 85610; 85730; 87040; 87070; 87077; 87081; 87186; 87205; 92526; 92610; 93005; 93225; 93306; 96365; 96366; 96375; 97162; 99291; 99292; A4314; A4649; J1200; J1250; J1644; J1720; J1815; J1938; J2250; J2405; J2543; J2598; J3010; J3373; J3411; J3475; J3480; J3490; J7030; J7070; J7120; J7999; P9047; Q9967; A9270